=== PATIENT | male | born 1935 | race Caucasian/White ===

== ENCOUNTER 2021-07-29 10:28 | Outpatient (REF) | payer MEDICARE, SELFPAY ==
[2021-07-29 10:49] LABS: MANUAL DIFF FLAG NO
[2021-07-29 11:03] LABS: Basophils Percent Auto 0.6 % (0-2); Eosinophils Absolute Auto 0.2 X10*3/uL (0.0-0.4); Eosinophils Percent Auto 3.1 % (0-4); Hematocrit 40.3 % (42-52); Hemoglobin 13.6 g/dl (14.0-18.0); Imm Gran Abs Auto 0.02 X10*3/uL (0.00-0.03); Imm Gran Pct Auto 0.4 % (0.0-0.4); Lymphocytes Percent Auto 19.1 % (20-40); Mean Corpuscular HGB Conc 33.7 g/dl (31.0-36.0); Mean Corpuscular Hemoglobin 32.7 pg (27.0-33.0); Mean Corpuscular Volume 96.9 fL (80-98); Mean Platelet Volume 10.1 fL (9.4-12.4); Monocytes Absolute Auto 0.5 X10*3/uL (0.1-1.2); Monocytes Percent Auto 9.5 % (2-11); Neutrophils Absolute Auto 3.5 X10*3/uL (2.0-8.3); Neutrophils Percent Auto 67.3 % (45-73); Platelet Count 187 X10*3/uL (160-400); Red Blood Count 4.16 X10*6/uL (4.60-5.80); Red Cell Distribution Width 13.8 % (11.0-16.0); White Blood Count 5.1 X10*3/uL (4.8-10.8)
[2021-07-29 11:29] LABS: Alanine Aminotransferase 16 U/L (0-40); Alkaline Phosphatase 110 U/L (39-117); Anion Gap 11 (12-20); Aspartate Amino Transferase 21 U/L (5-37); Bilirubin Total 1.1 mg/dL (0.0-1.0); Blood Urea Nitrogen 18 mg/dL (9-16); Calcium 8.9 mg/dL (8.4-10.2); Carbon Dioxide 26 mmol/L (22-29); Chloride 109 mmol/L (96-108); Cholesterol 171 mg/dL; Estimated Glomerular Filt Rate 57; Glucose Random 102 mg/dL (60-115); HDL Cholesterol 62 mg/dL; LDL Cholesterol Calculated 100 mg/dl; Potassium 4.3 mmol/L (3.3-5.1); Sodium 142 mmol/L (135-145); Total Protein 6.6 g/dL (6.5-8.0); Triglycerides 47 mg/dL
[2021-07-29 11:53] LABS: Free T4 (Free Thyroxine) 0.96 ng/dL (0.71-1.85); Thyroid Stimulating Hormone 6.04 uIU/mL (0.32-4.0)
== END 2021-07-29 10:29 | disposition home or self-care (01) ==
LOC: HO.LAB 10:28
PROVIDERS: PCP Internal Medicine; Visit Provider Internal Medicine
DX: I10 Essential (primary) hypertension (principal); R73.02 Impaired glucose tolerance (oral); E03.9 Hypothyroidism, unspecified; E78.00 Pure hypercholesterolemia, unspecified
CPT/HCPCS: 36415; 80053; 80061; 84439; 84443; 85025

== ENCOUNTER 2022-03-24 13:46 | Outpatient (REF) | payer MEDICARE, SELFPAY ==
--- NOTE | 2022-03-24 14:03 | ECG_ITS ---
Test Reason : DIZZY Blood Pressure : / mmHG Vent. Rate : 063 BPM Atrial Rate : 063 BPM P-R Int : 172 ms QRS Dur : 088 ms QT Int : 386 ms P-R-T Axes : 032 024 041 degrees QTc Int : 395 ms Normal sinus rhythm Minimal voltage criteria for LVH, may be normal variant ( Sokolow-Hernandez ) Nonspecific T wave abnormality Abnormal ECG When compared with ECG of 28-FEB-2013 10:41, Nonspecific T wave abnormality, worse in Lateral leads Referred By: Steve Sanchez Electronically Signed By:Naveen Mccormack
[2022-03-24 14:18] LABS: MANUAL DIFF FLAG NO
[2022-03-24 15:07] LABS: Basophils Percent Auto 0.4 % (0-2); Eosinophils Absolute Auto 0.1 X10*3/uL (0.0-0.4); Eosinophils Percent Auto 2.1 % (0-4); Hematocrit 41.4 % (42.0-52.0); Hemoglobin 13.8 g/dl (14.0-18.0); Imm Gran Abs Auto 0.01 X10*3/uL (0.00-0.03); Imm Gran Pct Auto 0.2 % (0.0-0.4); Immature Retic Fraction 6.1 % (2.3-13.4); Lymphocytes Absolute Auto 0.8 X10*3/uL (1.2-4.9); Lymphocytes Percent Auto 17.5 % (20-40); Mean Corpuscular HGB Conc 33.3 g/dl (31.0-36.0); Mean Corpuscular Hemoglobin 32.9 pg (27.0-33.0); Mean Corpuscular Volume 98.8 fL (80.0-98.0); Mean Platelet Volume 10.6 fL (9.4-12.4); Monocytes Absolute Auto 0.5 X10*3/uL (0.1-1.2); Monocytes Percent Auto 10.6 % (2-11); Neutrophils Absolute Auto 3.3 x10*3/uL (2.0-8.3); Neutrophils Percent Auto 69.2 % (45-73); Platelet Count 184 X10*3/uL (160-400); Red Blood Count 4.19 X10*6/uL (4.60-5.80); Red Cell Distribution Width 13.8 % (11.0-16.0); Retic HGB Equivalent 37.5 pg (30.0-35.0); Reticulocyte Percent 0.9 % (0.5-1.8); Reticulocytes Absolute 0.039 X10*6/uL (0.026-0.095); White Blood Count 4.8 X10*3/uL (4.8-10.8)
[2022-03-24 15:29] LABS: Appearance Urine CLEAR; Color Urine STRAW; Glucose Urine UA NEG (NEG); Leukocyte Esterase Urine NEG (NEG); Nitrite Urine NEG (NEG); PH 5.5 (5.0-8.0); Specific Gravity - Urine <= 1.005 (1.005-1.025); Urine Blood NEG (NEG); Urine Ketones NEG (NEG); Urine Protein NEG (NEG-TRACE)
[2022-03-24 15:43] LABS: Alanine Aminotransferase 16 U/L (0-40); Albumin Level 4.1 g/dL (3.5-5.0); Alkaline Phosphatase 87 U/L (39-117); Anion Gap 10 (12-20); Aspartate Amino Transferase 19 U/L (5-37); Bilirubin Total 0.6 mg/dL (0.0-1.0); Blood Urea Nitrogen 22 mg/dL (9-16); Calcium 9.2 mg/dL (8.4-10.2); Carbon Dioxide 28 mmol/L (22-29); Chloride 106 mmol/L (96-108); Estimated Glomerular Filt Rate > 60; Glucose Random 100 mg/dL (60-115); Iron 81 mcg/dL (45-160); Magnesium 2.2 mg/dL (1.6-2.6); Percent Iron Saturation 29 % (15-50); Potassium 3.9 mmol/L (3.3-5.1); Sodium 140 mmol/L (135-145); Total Iron Binding Capacity 282 mcg/dL (228-428); Total Protein 6.8 g/dL (6.5-8.0); Unsaturated Iron Binding 201 ug/dL
[2022-03-24 15:47] LABS: RBC Urine 0-2 /HPF (0); Squamous Epithelial Cell Urine TRACE /LPF; WBC Urine 0-2 /HPF (0-4)
[2022-03-24 16:06] LABS: Ferritin 225 ng/mL (20-250); Thyroid Stimulating Hormone 3.13 uIU/mL (0.32-4.0)
[2022-03-24 16:25] LABS: Folate > 20.0 ng/mL (> or = 4.0); Vitamin B12 480 pg/mL (200-900)
[2022-03-26 15:33] LABS: Lyme Abs Screen <0.90 index
== END 2022-03-24 13:47 | disposition home or self-care (01) ==
LOC: HO.LAB 13:46
PROVIDERS: PCP Internal Medicine; Visit Provider Internal Medicine
DX: N40.1 Benign prostatic hyperplasia with lower urinary tract symptoms (principal); R35.0 Frequency of micturition; R42 Dizziness and giddiness; E03.9 Hypothyroidism, unspecified; D64.9 Anemia, unspecified
CPT/HCPCS: 36415; 80053; 81001; 82607; 82728; 82746; 83540; 83735; 84439; 84443; 85025; 85045; 86617; 86618; 86900; 86901; 93005

== ENCOUNTER 2022-03-29 17:42 | Emergency (ER) | payer MEDICARE, SELFPAY ==
--- NOTE | ~2022-03-29 | CT_ITS ---
EXAMINATION: CT HEAD WITHOUT CONTRAST CLINICAL INFORMATION: Acute AMS COMPARISON: None TECHNIQUE: Contiguous axial imaging was performed from the skull base to vertex without intravenous administration of contrast. This CT examination was performed using dose optimization techniques as appropriate, variously including the following: *Automated exposure control *Adjustment of mA and/or kV according to patient size (this includes techniques or standardized protocols for targeted exams where dose is matched to indication/reason for exam; i.e. extremities or head) *Use of iterative reconstruction technique DLP: 611 mGy-cm FINDINGS: There is no evidence of acute intracranial hemorrhage or territorial infarction. No abnormal mass effect or midline shift is seen. Santiago to white matter differentiation is well preserved. No extra-axial fluid collections are identified. The lateral ventricles are symmetrical in size and configuration but enlarged. There is diffuse periventricular hypodensity in both cerebral hemispheres suggestive of chronic small vessel ischemic changes The osseous structures and soft tissues are normal. There is a small polyp or retention cyst in the dependent segment of left maxillary sinus. Rest of the paranasal sinuses and mastoid air cells are well-aerated. CT/CT head/brain wo con IMPRESSION: No acute intracranial process seen. Cerebral volume loss with chronic small vessel ischemic changes.
--- NOTE | ~2022-03-29 | XR_ITS ---
EXAMINATION: XR chest 1V CLINICAL INFORMATION: Reason for Exam ams COMPARISON: No prior chest x-ray available TECHNIQUE: XR chest 1V Tubes and lines: None Lungs and pleura: Exam limited, portable technique upright, no definite infiltrates or failure, diminished lung volume exaggerated by portable technique. Crowding of lung markings probably poor inspiration. Heart and mediastinum: The mediastinum is within normal limits.. Bones/soft tissue: Skeletal structures included are normal for patient's age. XR/XR chest 1V IMPRESSION: Limited portable technique. No radiographic evidence of acute infiltrates or failure.
--- NOTE | 2022-03-29 17:48 | ED_ITS ---
HPI - Altered Mental Status General Chief Complaint: Altered Mental Status Stated Complaint: Altered Mental Status Time Seen by Provider: 03/29/22 17:46 History of Present Illness HPI narrative: Patient with history of laryngeall cancer status post tracheostomy, hypertension, hypothyroidism, BPH was working outside in the yardd for 4 hours moving the yard came inside very confused not talking keeping his eyes closed breathing heavy. Patient never done like this before. No vomiting no diarrhea Related Data Home Medications Medication Instructions Recorded Confirmed calcium carbonate 600 mg-vitamin cap PO 08/05/20 08/03/21 D3 12.5 mcg (500 unit) capsule (Calcium 600 with Vitamin D3) multivitamin 1 tab PO DAILY 08/05/20 08/03/21 Previous Rx's Medication Instructions Recorded hydrochlorothiazide 12.5 mg tablet 12.5 mg PO QAM #90 tabs 05/15/21 levothyroxine 75 mcg tablet 75 mcg PO DAILY #90 tabs 05/15/21 tamsulosin 0.4 mg capsule 0.4 mg PO DAILY #90 caps 05/15/21 Allergies Allergy/AdvReac Type Severity Reaction Status Date / Time No Known Allergies Allergy Verified 03/24/22 12:57 [facility] Past Medical History Medical History (Updated 03/29/22 @ 21:06 by Ricardo Torres MD) 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 Mother No problems noted. Social History Social History (Updated 08/03/21 @ 13:28 by Steve Sanchez MD) Housing: House Alcohol intake: current Alcohol intake frequency: a few times a week Patient Tobacco Use Status: Never used Tobacco e-Cigarette/Vaping Use: Never Used Second Hand Smoke Exposure: No Use of substances other than those prescribed or required for medical reasons: No Advance Directives: No Advance Directives Information Provided: No Current occupational status: retired Cognitive needs: No Hearing needs: No Vision needs: Yes Physical Exam ED Vital Signs: Vital Signs - 24 hr 03/29/22 18:02 03/29/22 19:45 03/29/22 21:27 Temperature 98.3 F Pulse Rate 82 73 80 Respiratory Rate 16 16 Blood Pressure 156/76 H 166/79 H 178/86 H Pulse Oximetry 95 99 Oxygen Delivery Method Room Air Room Air 03/29/22 21:27 03/29/22 21:30 Temperature Pulse Rate 82 91 Respiratory Rate Blood Pressure 173/94 H 164/87 H Pulse Oximetry Oxygen Delivery Method Appearance: Alert. Oriented X3. No acute distress. Lethargic Eyes: PERRLA, No Nystagmus ENT: Pharynx normal. Oral Mucosa moist Neck: Normal inspection. Neck supple.tracheostomy in place CVS: Normal heart rate and rhythm. Pulses normal. Respiratory: No respiratory distress. Equal air entry bilateral, no wheezing/rales/rhonchi Abdomen: Soft and nontender. Bowel sounds are present, no mass palpable, no CVA tenderness Skin: Skin warm and dry. Normal skin color. Normal skin turgor. Extremities: No lower extremity edema. No calf tenderness Neuro: Oriented X 3. No motor deficit. No sensory deficit.No cerebellar signs , cranial nerves II-XII intact MDM - Altered Mental Status MDM Narrative Medical decision making narrative: Patient's symptoms seems like heat exhaustion after getting IV fluids patient became awake alert talking back to baseline walking the ER without any discomfort says that he was exhausted earlier today after working in the yard felt dizzy and fell down without hitting head workup in the ER negative CT head negative labs are stable patient feeling much better discharged home Lab Data Attestation: I reviewed the patient's lab results. Result diagrams: 03/29/22 18:46 03/29/22 18:46 Labs: Lab Results 03/29/22 03/29/22 03/29/22 Range/Units 18:46 18:46 18:46 WBC 10.1 (4.8-10.8) X10*3/uL RBC 3.84 L (4.60-5.80) X10*6/uL Hgb 12.9 L (14.0-18.0) g/dl Hct 37.2 L (42.0-52.0) % MCV 96.9 (80.0-98.0) fL MCH 33.6 H (27.0-33.0) pg MCHC 34.7 (31.0-36.0) g/dl RDW 13.4 (11.0-16.0) % Plt Count 160 (160-400) X10*3/uL MPV 10.5 (9.4-12.4) fL Immature Gran % (Auto) 1.0 H (0.0-0.4) % Neut % (Auto) 85.5 H (45-73) % Lymph % (Auto) 6.5 L (20-40) % Preston % (Auto) 6.2 (2-11) % Eos % (Auto) 0.6 (0-4) % Baso % (Auto) 0.2 (0-2) % Lymph # (Auto) 0.7 L (1.2-4.9) X10*3/uL Preston # (Auto) 0.6 (0.1-1.2) X10*3/uL Eos # (Auto) 0.1 (0.0-0.4) X10*3/uL Baso # (Auto) 0.0 (0.0-0.2) X10*3/uL Abs Immat Gran (auto) 0.10 H (0.00-0.03) X10*3/uL Absolute Neuts (auto) 8.6 H (2.0-8.3) x10*3/uL Absolute Nucleated RBC 0.000 (0.0-0.012) X10*3/uL Nucleated RBC % (auto) 0.0 (0.0-0.2) /100WBC PT 11.7 (9.9-13.0) SEC INR 1.0 (0.9-1.1) Sodium 142 (135-145) mmol/L Potassium 4.0 (3.3-5.1) mmol/L Chloride 111 H (96-108) mmol/L Carbon Dioxide 20 L (22-29) mmol/L Anion Gap 15 (12-20) BUN 26 H (9-16) mg/dL Creatinine 1.12 (0.5-1.4) mg/dL Estim Creat Clear Calc TNP Estimated GFR > 60 Random Glucose 140 H D (60-115) mg/dL Calcium 8.8 (8.4-10.2) mg/dL Total Bilirubin 0.7 (0.0-1.0) mg/dL AST 19 (5-37) U/L ALT 14 (0-40) U/L Alkaline Phosphatase 95 (39-117) U/L Total Creatine Kinase 94 (38-174) U/L Troponin I High Sens (<3.5-35.0) ng/L Total Protein 6.4 L (6.5-8.0) g/dL Albumin 3.8 (3.5-5.0) g/dL Urine Color Urine Appearance Urine pH (5.0-8.0) Ur Specific [place] (1.005-1.025) Urine Protein (NEG-TRACE) MG/DL Urine Glucose (UA) (NEG) MG/DL Urine Ketones (NEG) MG/DL Urine Blood (NEG) Urine Nitrite (NEG) Ur Leukocyte Esterase (NEG) COVID-19 (DWAYNE) (Negative) COVID-19 Clin Com 03/29/22 03/29/22 03/29/22 Range/Units 18:46 18:46 19:44 WBC (4.8-10.8) X10*3/uL RBC (4.60-5.80) X10*6/uL Hgb (14.0-18.0) g/dl Hct (42.0-52.0) % MCV (80.0-98.0) fL MCH (27.0-33.0) pg MCHC (31.0-36.0) g/dl RDW (11.0-16.0) % Plt Count (160-400) X10*3/uL MPV (9.4-12.4) fL Immature Gran % (Auto) (0.0-0.4) % Neut % (Auto) (45-73) % Lymph % (Auto) (20-40) % Preston % (Auto) (2-11) % Eos % (Auto) (0-4) % Baso % (Auto) (0-2) % Lymph # (Auto) (1.2-4.9) X10*3/uL Preston # (Auto) (0.1-1.2) X10*3/uL Eos # (Auto) (0.0-0.4) X10*3/uL Baso # (Auto) (0.0-0.2) X10*3/uL Abs Immat Gran (auto) (0.00-0.03) X10*3/uL Absolute Neuts (auto) (2.0-8.3) x10*3/uL Absolute Nucleated RBC (0.0-0.012) X10*3/uL Nucleated RBC % (auto) (0.0-0.2) /100WBC PT (9.9-13.0) SEC INR (0.9-1.1) Sodium (135-145) mmol/L Potassium (3.3-5.1) mmol/L Chloride (96-108) mmol/L Carbon Dioxide (22-29) mmol/L Anion Gap (12-20) BUN (9-16) mg/dL Creatinine (0.5-1.4) mg/dL Estim Creat Clear Calc Estimated GFR Random Glucose (60-115) mg/dL Calcium (8.4-10.2) mg/dL Total Bilirubin (0.0-1.0) mg/dL AST (5-37) U/L ALT (0-40) U/L Alkaline Phosphatase (39-117) U/L Total Creatine Kinase (38-174) U/L Troponin I High Sens 5.4 (<3.5-35.0) ng/L Total Protein (6.5-8.0) g/dL Albumin (3.5-5.0) g/dL Urine Color YELLOW Urine Appearance CLEAR Urine pH 6.0 (5.0-8.0) Ur Specific [place] 1.015 (1.005-1.025) Urine Protein NEG (NEG-TRACE) MG/DL Urine Glucose (UA) NEG (NEG) MG/DL Urine Ketones 15 (NEG) MG/DL Urine Blood NEG (NEG) Urine Nitrite NEG (NEG) Ur Leukocyte Esterase NEG (NEG) COVID-19 (DWAYNE) Negative (Negative) COVID-19 Clin Com See Note Discharge Plan Discharge Clinical Impression: Heat exhaustion Patient Disposition: Home, Self-Care Instructions: Heat Exhaustion (ED) Additional Instructions: Drink plenty of fluids Avoid working in the heat outside Prescriptions: No Action levothyroxine 75 mcg tablet 75 mcg PO DAILY Qty: 90 3RF tamsulosin 0.4 mg capsule 0.4 mg PO DAILY Qty: 90 3RF hydrochlorothiazide 12.5 mg tablet 12.5 mg PO QAM Qty: 90 3RF multivitamin Tablet 1 tab PO DAILY calcium carbonate-vitamin D3 [Calcium 600 with Vitamin D3] 600 mg(1,500mg) - 500 unit capsule PO Interventions: ED Discharge Assessment Last Done: 03/29/22 21:33 Discharge Date/Time: 03/29/22 21:59
--- NOTE | 2022-03-29 17:57 | ECG_ITS ---
Test Reason : AMS Blood Pressure : / mmHG Vent. Rate : 076 BPM Atrial Rate : 076 BPM P-R Int : 196 ms QRS Dur : 092 ms QT Int : 412 ms P-R-T Axes : 032 016 050 degrees QTc Int : 463 ms Normal sinus rhythm Normal ECG When compared with ECG of 24-MAR-2022 14:17, QT has lengthened Referred By: Ricardo Torres Electronically Signed By:MARIE GORDON MD
[2022-03-29 18:02] VITALS: BP 156/76; BP 160/85; PULSE 82; PULSE 85; RESP 16; TEMP 36.8; O2SAT 100; O2SAT 95
--- NOTE | 2022-03-29 18:19 | PC.NURSE ---
EMS HAND OFF FROM [facility]. PER , PT CLAIMED HE FELL WHILE MOWING HIS LAWN THIS AFTERNOON. HE WAS NON VERBAL WITH EMS AND ALMOST OBTUND WHILE IN THE CARE OF EMS. pmh INCLUDES: HTN, PROSTATE AND THYROID DISEASE. HE WAS DEHYDRATED PER DR CAMPBELL LAST WEEK WHILE AT PCP OFICE
[2022-03-29 18:54] LABS: MANUAL DIFF FLAG NO
[2022-03-29 18:56] LABS: Appearance Urine CLEAR; Color Urine YELLOW; Glucose Urine UA NEG (NEG); Leukocyte Esterase Urine NEG (NEG); Nitrite Urine NEG (NEG); Specific Gravity - Urine 1.015 (1.005-1.025); Urine Blood NEG (NEG); Urine Ketones 15 MG/DL (NEG); Urine Protein NEG (NEG-TRACE)
[2022-03-29 19:02] LABS: Basophils Percent Auto 0.2 % (0-2); Eosinophils Absolute Auto 0.1 X10*3/uL (0.0-0.4); Eosinophils Percent Auto 0.6 % (0-4); Hematocrit 37.2 % (42.0-52.0); Hemoglobin 12.9 g/dl (14.0-18.0); Lymphocytes Absolute Auto 0.7 X10*3/uL (1.2-4.9); Lymphocytes Percent Auto 6.5 % (20-40); Mean Corpuscular HGB Conc 34.7 g/dl (31.0-36.0); Mean Corpuscular Hemoglobin 33.6 pg (27.0-33.0); Mean Corpuscular Volume 96.9 fL (80.0-98.0); Mean Platelet Volume 10.5 fL (9.4-12.4); Monocytes Absolute Auto 0.6 X10*3/uL (0.1-1.2); Monocytes Percent Auto 6.2 % (2-11); Neutrophils Absolute Auto 8.6 x10*3/uL (2.0-8.3); Neutrophils Percent Auto 85.5 % (45-73); Platelet Count 160 X10*3/uL (160-400); Red Blood Count 3.84 X10*6/uL (4.60-5.80); Red Cell Distribution Width 13.4 % (11.0-16.0); White Blood Count 10.1 X10*3/uL (4.8-10.8)
[2022-03-29 19:06] LABS: Prothrombin Time 11.7 SEC (9.9-13.0)
[2022-03-29 19:16] LABS: Alanine Aminotransferase 14 U/L (0-40); Albumin Level 3.8 g/dL (3.5-5.0); Alkaline Phosphatase 95 U/L (39-117); Anion Gap 15 (12-20); Aspartate Amino Transferase 19 U/L (5-37); Bilirubin Total 0.7 mg/dL (0.0-1.0); Blood Urea Nitrogen 26 mg/dL (9-16); Calcium 8.8 mg/dL (8.4-10.2); Carbon Dioxide 20 mmol/L (22-29); Chloride 111 mmol/L (96-108); Estimated Glomerular Filt Rate > 60; Glucose Random 140 mg/dL (60-115); Sodium 142 mmol/L (135-145); Total Protein 6.4 g/dL (6.5-8.0)
[2022-03-29 19:22] LABS: Troponin-I High Sensitivity 5.4 ng/L (<3.5-35.0)
[2022-03-29 19:45] VITALS: BP 166/79; PULSE 73; RESP 16; O2SAT 99
[2022-03-29 20:31] LABS: COVID-19 Test Negative (Negative)
[2022-03-29 21:27] VITALS: BP 173/94; BP 178/86; PULSE 80; PULSE 82
[2022-03-29 21:30] VITALS: BP 164/87; PULSE 91
== END 2022-03-29 21:59 | disposition home or self-care (01) ==
PROVIDERS: Emergency Provider Internal Medicine; PCP Internal Medicine
DX: R41.82 Altered mental status, unspecified (principal); T67.5XXA Heat exhaustion, unspecified, initial encounter; I10 Essential (primary) hypertension; R51.9 Headache, unspecified; X58.XXXA Exposure to other specified factors, initial encounter; Y93.9 Activity, unspecified; Y92.9 Unspecified place or not applicable; Y99.9 Unspecified external cause status; Z20.822 Contact with and (suspected) exposure to COVID-19; Z79.899 Other long term (current) drug therapy
CPT/HCPCS: 36415; 70450; 71045; 80053; 81003; 82550; 84484; 85025; 85610; 87635; 93005; 99284

== ENCOUNTER 2022-04-07 14:20 | Outpatient (REF) | payer MEDICARE, SELFPAY ==
--- NOTE | ~2022-04-07 | MR_ITS ---
MRI OF THE BRAIN WITHOUT IV CONTRAST INDICATION: Disorientation. COMPARISON: Head CT 03/29/2022. TECHNIQUE: Multiplanar multisequence MR imaging of the brain was obtained without IV contrast. FINDINGS: Multiple foci of reduced diffusivity involving the right greater than left cerebellum exhibiting intermediate signal on the ADC map suggesting subacute infarcts. Petechial subacute blood products associated with one of the infarcts in the inferolateral right cerebellum exhibiting intrinsic T1 shortening. There is no mass effect. Loss of the distal cervical and intradural right vertebral artery flow void suggesting slow flow within versus occlusion of this vessel that be better assessed with a CTA of the head and neck. Foci of probable chronic hemosiderin staining within the left temporal periventricular white matter and the left parietal white matter. There is global cerebral volume loss and there is moderate chronic microangiopathy. There is no hydrocephalus, extra-axial surface collection, or herniation. The cerebellar tonsils are normally positioned. The craniocervical junction is normal. Osseous marrow signal intensity is homogenous. The visualized soft tissues are unremarkable. MR/MR head/brain wo con IMPRESSION: - Multiple foci of reduced diffusivity involving the right greater than left cerebellum exhibiting intermediate signal on the ADC map suggesting subacute infarcts. Petechial subacute blood products associated with one of the infarcts in the inferolateral right cerebellum exhibiting intrinsic T1 shortening. There is no mass effect. - Loss of the distal cervical and intradural right vertebral artery flow void suggesting slow flow within versus occlusion of this vessel that be better assessed with a CTA of the head and neck. - There is global cerebral volume loss and there is moderate chronic microangiopathy. The patient was transferred to the [facility] emergency department immediately following this study and the findings were discussed with Dr. Sanchez at 3:35 PM on 04/07/2022.
== END 2022-04-07 14:21 | disposition home or self-care (01) ==
LOC: HO.MRI 14:20
PROVIDERS: Visit Provider Internal Medicine
DX: Z13.89 Encounter for screening for other disorder (principal)
CPT/HCPCS: 70551

== ENCOUNTER 2022-04-07 15:38 | Inpatient (IN) | payer MEDICARE, SELFPAY ==
--- NOTE | ~2022-04-07 | CT_ITS ---
EXAMINATION: CT ANGIOGRAM OF THE HEAD CT ANGIOGRAM OF THE NECK CLINICAL INFORMATION: Dizziness. Abnormal MRI. COMPARISON: MRI scan of the brain earlier 04/07/2022. CT scan of the head 03/29/2022. TECHNIQUE: A noncontrast axial CT scan of the head was obtained. Test bolus series followed by intravenous administration 70 mL of Omnipaque 350. Helical imaging was performed in the axial plane from the mediastinum to the skull vertex. The degree of stenosis is based off NASCET criteria. The data was processed at the research technologist workstation for generation of MIP images. Three-dimensional volume rendered reformatted images were also generated at an offline 3-D workstation. This CT examination was performed using dose optimization techniques as appropriate, variously including the following: *Automated exposure control *Adjustment of mA and/or kV according to patient size (this includes techniques or standardized protocols for targeted exams where dose is matched to indication/reason for exam; i.e. extremities or head) *Use of iterative reconstruction technique DLP: 2355 mGy-cm. FINDINGS: CT Head: There are areas of low-attenuation in the right cerebellar hemisphere, corresponding to foci of acute and subacute infarcts on the MRI scan. There are sequelae of chronic infarcts in the left cerebellar hemisphere. There is extensive low-attenuation in the periventricular subcortical white matter, corresponding to chronic microvascular ischemic changes demonstrated on prior imaging. There is mild commensurate prominence of the ventricles and sulci. There is no evidence of hemorrhage or hemorrhagic transformation. No abnormal mass-effect or midline shift is seen. No extra-axial fluid collections are identified. There is no abnormal enhancement. There are no acute osseous or soft tissue abnormalities. The right mastoid tip is not pneumatized. There is a small retention cyst in the left maxillary sinus. There are severe arthropathic changes of the left temporal mandibular joint. There have been bilateral lens extractions. CTA Neck: There is a classic configuration of the aortic arch. There are mild atheromatous calcifications of the arch and at the origin of the bilateral subclavian arteries. The subclavian arteries are patent. Both common carotid arteries are patent. The carotid bifurcations appear normal. There is absent flow from the right external carotid artery. There are mild atheromatous calcifications of the proximal right internal carotid artery, but both cervical internal carotid arteries are patent although there is slight irregular caliber of the bilateral cervical internal carotid arteries distal to the bifurcations with atheromatous plaques. More distally, both cervical internal carotid arteries are patent with uniform caliber. The left vertebral artery arises off the posterior arch of the aorta, and is patent throughout its cervical course extending intradurally. On the right, no flow is demonstrated in the V1 and V2 segments of the vertebral artery; there appears to be some atheromatous calcification of the wall of the mid and distal cervical vertebral artery on the right. There is a thin caliber distal cervical right vertebral artery with flow. The left vertebral artery is dominant. Nonvascular: The thyroid gland appears normal in size. There are sequelae of a prior tracheostomy; no tracheostomy tube is noted in position in this study. There is no cervical lymphadenopathy. There are multilevel facet arthropathic changes, and there is severe spondylosis toward the right at C4-C5 with degenerative endplate contour changes and sclerosis. The visualized upper lung castillo are well-aerated. CTA Head: There are extensive atheromatous calcifications of the cavernous internal carotid on the right with milder calcifications on the left, but the vessels are patent. The A1 segment of the right anterior cerebral artery has thinner, but uniform caliber compared to the left. The A2 segments of the bilateral anterior cerebral arteries opacify well. The middle cerebral arteries bilaterally demonstrate normal caliber with no evidence of focal stenosis, aneurysm or vascular malformation. There is normal arborization of the middle cerebral artery branches. The anterior communicating artery is normal. In the posterior circulation, there is irregular caliber of the distal V3 and proximal V4 segments of the right vertebral artery. The bilateral intradural vertebral arteries have irregular caliber, more prominently on the right. The basilar artery appears normal. The distal right superior cerebellar artery has relatively thin, and irregular caliber; the proximal right superior cerebellar artery opacifies well. There is a origin of the right posterior cerebral artery. Both posterior cerebral arteries are patent. The venous sinuses opacify normally. CT/CT angio head neck IMPRESSION: CT head and neck: 1. There are areas of low-attenuation in the right cerebellar hemisphere, corresponding to the acute and subacute infarcts demonstrated on prior MRI scan. There is no evidence of hemorrhage. 2. There is diffuse volume loss and there are chronic microvascular ischemic changes. 3. There are sequelae of a tracheostomy; no tracheostomy tube is noted in position. 4. There is severe spondylosis on the right at C4-C5. CTA neck: 1. There are atheromatous calcifications of the aortic arch and at the proximal right cervical internal carotid artery. 2. The right external carotid artery does not opacify distal to its origin. 3. The common and internal carotid arteries are patent without evidence of flow-limiting stenosis. 4. The right vertebral artery does not demonstrate flow from its origin through the upper cervical region, but flow is demonstrated extending intradurally. The left vertebral artery arises off the posterior arch of the aorta, a normal variant. CT head: 1. There are atheromatous calcifications of the cavernous internal carotid arteries, but the vessels are patent. 2. There are no focal stenoses, vascular malformations or aneurysms. 3. Intradurally the right vertebral artery is patent.
[2022-04-07 15:56] VITALS: BP 145/59; PULSE 64; RESP 20; TEMP 36.7; O2SAT 100; BMI 21.2
--- NOTE | 2022-04-07 17:01 | ECG_ITS ---
Test Reason : DIZZINESS Blood Pressure : / mmHG Vent. Rate : 056 BPM Atrial Rate : 056 BPM P-R Int : 186 ms QRS Dur : 092 ms QT Int : 424 ms P-R-T Axes : 032 007 063 degrees QTc Int : 409 ms Sinus bradycardia Minimal voltage criteria for LVH, may be normal variant ( R in aVL ) Borderline ECG When compared with ECG of 29-MAR-2022 18:23, QT has shortened Referred By: Mery Li Electronically Signed By:JORGE HENDRICKS
[2022-04-07 17:21] LABS: MANUAL DIFF FLAG NO
[2022-04-07 17:25] LABS: Basophils Percent Auto 0.3 % (0-2); Eosinophils Absolute Auto 0.2 X10*3/uL (0.0-0.4); Eosinophils Percent Auto 2.5 % (0-4); Hematocrit 41.8 % (42.0-52.0); Hemoglobin 14.3 g/dl (14.0-18.0); Imm Gran Abs Auto 0.05 X10*3/uL (0.00-0.03); Imm Gran Pct Auto 0.7 % (0.0-0.4); Lymphocytes Absolute Auto 1.1 X10*3/uL (1.2-4.9); Lymphocytes Percent Auto 15.5 % (20-40); Mean Corpuscular HGB Conc 34.2 g/dl (31.0-36.0); Mean Corpuscular Hemoglobin 32.5 pg (27.0-33.0); Mean Platelet Volume 10.4 fL (9.4-12.4); Monocytes Absolute Auto 0.7 X10*3/uL (0.1-1.2); Monocytes Percent Auto 9.7 % (2-11); Neutrophils Absolute Auto 4.9 x10*3/uL (2.0-8.3); Neutrophils Percent Auto 71.3 % (45-73); Platelet Count 178 X10*3/uL (160-400); Red Cell Distribution Width 12.9 % (11.0-16.0); White Blood Count 6.9 X10*3/uL (4.8-10.8)
[2022-04-07 17:40] LABS: Alanine Aminotransferase 13 U/L (0-40); Alkaline Phosphatase 99 U/L (39-117); Anion Gap 11 (12-20); Aspartate Amino Transferase 17 U/L (5-37); Bilirubin Direct 0.3 mg/dL (0.0-0.5); Bilirubin Total 0.6 mg/dL (0.0-1.0); Blood Urea Nitrogen 23 mg/dL (9-16); Calcium 9.3 mg/dL (8.4-10.2); Carbon Dioxide 26 mmol/L (22-29); Chloride 106 mmol/L (96-108); Creatinine Clr Calc Pharmacy 42.1; Estimated Glomerular Filt Rate > 60; Glucose Random 106 mg/dL (60-115); Potassium 3.5 mmol/L (3.3-5.1); Sodium 139 mmol/L (135-145); Total Protein 6.7 g/dL (6.5-8.0)
[2022-04-07 17:40] LABS: COVID-19 Test Negative (Negative); IDNOW Serial# 16C4AD1C
[2022-04-07 17:41] LABS: IDNOW Serial# 55D5AD1C; Influenza A Negative (Negative); Influenza B2 Negative (Negative)
--- NOTE | 2022-04-07 17:43 | ED_ITS ---
HPI - General Adult General Chief complaint: General Medical <EMMANUELLE Garcia - Last Filed: 04/07/22 18:51> Stated complaint: Abdnormal MRI <EMMANUELLE Garcia Last Filed: 04/07/22 18:51> Time Seen by Provider: 04/07/22 16:21 <EMMANUELLE Garcia Last Filed: 04/07/22 18:51> Source: patient <EMMANUELLE Garcia Last Filed: 04/07/22 18:51> Mode of arrival: ambulatory <EMMANUELLE Garcia Last Filed: 04/07/22 18:51> History of Present Illness HPI narrative: 86-year-old male with a past medical history of BPH, laryngeal cancer s/p tracheostomy, HTN, hypothyroid, sent to ED from outpatient MRI for abnormal findings. Patient and from [facility] room spinning dizziness x1 month. Also admits to right hand paresthesias times a couple days, and intermittent blurry vision. Denies falls/trauma, chest pain/shortness breath abdominal pain, nausea/vomiting, focal weakness. Denies taking anticoagulation <EMMANUELLE Garcia Last Filed: 04/07/22 18:51> Onset (ago): month(s) <EMMANUELLE Garcia Last Filed: 04/07/22 18:51> Related Data Home medications: Home Medications Medication Instructions Recorded Confirmed calcium carbonate 600 mg-vitamin 2 cap PO DAILY 08/05/20 04/07/22 D3 12.5 mcg (500 unit) capsule (Calcium 600 with Vitamin D3) multivitamin 1 tab PO DAILY 08/05/20 04/07/22 levothyroxine 75 mcg tablet 75 mcg PO BEDTIME 04/07/22 04/07/22 Previous Rx's Medication Instructions Recorded hydrochlorothiazide 12.5 mg tablet 12.5 mg PO QAM #90 tabs 05/15/21 tamsulosin 0.4 mg capsule 0.4 mg PO DAILY #90 caps 05/15/21 <EMMANUELLE Garcia Last Filed: 04/07/22 18:51> Allergies/adverse reactions: Allergies Allergy/AdvReac Type Severity Reaction Status Date / Time No Known Allergies Allergy Verified 03/24/22 12:57 <EMMANUELLE Garcia - Last Filed: 04/07/22 18:51> Review of Systems Review of Systems: Constitutional: No Fever, No Chills, No Fatigue, No Malaise ENT/Mouth: No Ear Pain, No Nasal Congestion, No sore throat, No Rhinorrhea, No Swallowing Difficulty Eyes: No Eye Pain, No Swelling, No Redness, + intermittent blurry vision Cardiovascular: No Chest Pain, No SOB, NNo Edema, No Palpitations Respiratory: No Cough, No Sputum, No Dyspnea Gastrointestinal: No Nausea, No Vomiting, No Diarrhea, No Constipation, No Abdominal pain Genitourinary: No Dysuria, No Urinary Frequency, No Hematuria,No Flank Pain, No Urinary Flow Changes, No Hesitancy Musculoskeletal: No joint pain, No Myalgias, No Joint Swelling Skin: No Skin Lesions, No rash Neuro: No Weakness, No Numbness, + Paresthesias, No Loss of Consciousness, + Dizziness, No Headache <EMMANUELLE Garcia Last Filed: 04/07/22 18:51> Yes all other systems are reviewed and are negative <EMMANUELLE Garcia Last Filed: 04/07/22 18:51> [facility] Past Medical History Attestation statement: The following information was validated with the patient. <EMMANUELLE Garcia Last Filed: 04/07/22 18:51> Medical History: Medical History BPH (benign prostatic hyperplasia) History of laryngeal cancer Hypertension Hypothyroid Impaired glucose tolerance Tubular adenoma of colon Vocal cord papilloma virus <EMMANUELLE Garcia - Last Filed: 04/07/22 18:51> Surgical History: Surgical History History of cataract surgery History of left knee replacement History of total right knee replacement <EMMANUELLE Garcia Last Filed: 04/07/22 18:51> Family History Family History: Family History Father No problems noted. Mother No problems noted. <EMMANUELLE Garcia Last Filed: 04/07/22 18:51> Social History Social History: Social History Housing: House Alcohol intake: current Alcohol intake frequency: does not drink Patient Tobacco Use Status: Never used Tobacco e-Cigarette/Vaping Use: Never Used Second Hand Smoke Exposure: No Use of substances other than those prescribed or required for medical reasons: No Advance Directives: No Advance Directives Information Provided: No Current occupational status: retired Cognitive needs: No Hearing needs: No Vision needs: Yes <EMMANUELLE Garcia - Last Filed: 04/07/22 18:51> Physical Exam ED Vital Signs: Vital Signs - 24 hr 04/07/22 15:56 Temperature 98.0 F Pulse Rate 64 Respiratory Rate 20 Blood Pressure 145/59 H Pulse Oximetry 100 Oxygen Delivery Method Room Air BMI result Body Mass Index 21.2 <EMMANUELLE Garcia - Last Filed: 04/07/22 18:51> Vital Signs - 24 hr 04/07/22 15:56 Temperature 98.0 F Pulse Rate 64 Respiratory Rate 20 Blood Pressure 145/59 H Pulse Oximetry 100 Oxygen Delivery Method Room Air BMI result Body Mass Index 21.[address] <[address]ides Lane MD - Last Filed: 04/07/22 20:59> Const General: cooperative, healthy appearing, no acute distress, alert and awake <EMMANUELLE Garcia - Last Filed: 04/07/22 18:51> Orientation/consciousness: patient oriented x3 <EMMANUELLE Garcia - Last Filed: 04/07/22 18:51> Limitations: no limitations <EMMANUELLE Garcia - Last Filed: 04/07/22 18:51> HENMT Head: Yes normal to inspection and Yes atraumatic <EMMANUELLE Garcia - Last Filed: 04/07/22 18:51> Ears: hearing grossly normal bilaterally <EMMANUELLE Garcia - Last Filed: 04/07/22 18:51> General nose exam: Normal external nose present <EMMANUELLE Garcia Last Filed: 04/07/22 18:51> Face and sinus: Yes normal facial exam <EMMANUELLE Garcia - Last Filed: 04/07/22 18:51> Eyes General: appearance normal, both eyes and all related structures <EMMANUELLE Garcia - Last Filed: 04/07/22 18:51> Pupils: Equal, round and reactive pupils present <Mery Li PA - Last Filed: 04/07/22 18:51> EOM: EOMs intact bilaterally <Mery Li PA - Last Filed: 04/07/22 18:51> Neck Neck: Yes normal visual inspection and Yes no meningeal signs <Mery Li PA - Last Filed: 04/07/22 18:51> Resp Effort & Inspection: normal respiratory effort and no respiratory distress <Mery Pedrogallito PA - Last Filed: 04/07/22 18:51> Auscultation: clear to auscultation bilaterally, no rales, no rhonchi and no wheezes <Mery Li PA - Last Filed: 04/07/22 18:51> Cardio Rate: regular rate <Mery Li PA - Last Filed: 04/07/22 18:51> Heart sounds: S1 normal heart sound present and S2 normal heart sound present <Mery Li PA - Last Filed: 04/07/22 18:51> GI Inspection: Yes normal to inspection <Mery Li PA - Last Filed: 04/07/22 18:51> Palpation (GI): Soft to palpation, nontender, no guarding and not rigid <Mery Li PA - Last Filed: 04/07/22 18:51> General: Yes no CVA tenderness <Mery Li PA - Last Filed: 04/07/22 18:51> Back/Spine/Pelvis Back: no CVA tenderness <Mery Li PA - Last Filed: 04/07/22 18:51> Skin Rashes: no rashes <Mery Li PA - Last Filed: 04/07/22 18:51> Wounds: no wounds <Mery Li PA - Last Filed: 04/07/22 18:51> Neuro General: patient oriented x3, tone normal, moves all extremities, no meningeal signs, no focal motor deficits and CN's II-XI intact bilaterally <Mery Li PA - Last Filed: 04/07/22 18:51> Cranial nerves: Yes CN's II-XII intact bilaterally, Yes Equal, round and reactive pupils present, Yes Bilaterally intact EOM present and Yes Nystagmus not present <EMMANUELLE Garcia - Last Filed: 04/07/22 18:51> Cognition (Neuro): normal cognition <EMMANUELLE Garcia - Last Filed: 04/07/22 18:51> Motor exam (neuro): 5/5 motor strength present throughout, Pronator motor function not present and no tremor noted <EMMANUELLE Garcia - Last Filed: 04/07/22 18:51> Coordination: [id number] test normal <EMMANUELLE Garcia - Last Filed: 04/07/22 18:51> Romberg Test: Negative <EMMANUELLE Garcia - Last Filed: 04/07/22 18:51> Extrem General: Yes normal to inspection <EMMANUELLE Garcia - Last Filed: 04/07/22 18:51> Course Course Course Narrative: MR head/brain wo con IMPRESSION: - Multiple foci of reduced diffusivity involving the right greater than left cerebellum exhibiting intermediate signal on the ADC map suggesting subacute infarcts. Petechial subacute blood products associated with one of the infarcts in the inferolateral right cerebellum exhibiting intrinsic T1 shortening. There is no mass effect. ? ? - Loss of the distal cervical and intradural right vertebral artery flow void suggesting slow flow within versus occlusion of this vessel that be better assessed with a CTA of the head and neck. ? - There is global cerebral volume loss and there is moderate chronic microangiopathy. ? The patient was transferred to the [facility] emergency department immediately following this study and the findings were discussed with Dr. Sanchez at 3:35 PM on 04/07/2022. -no leukocytosis. Troponin elevated to 19.3 > will obtain 3 hour repeat -repeat troponin without 50% rise, TX unlikely >1800--ED care transferred to Dr. Lane pending remaining labs and CTA head and neck with anticipated admission <EMMANUELLE Garcia Last Filed: 04/07/22 18:51> Reevaluation(s) Reevaluation #1: I assumed care of this patient from my colleague, physician phlebotomist medical lab assistant Mery Li at 18:00 hours. The patient was referred to the emergency department after he had a MRI which was positive for subacute cerebellar stroke with question petechial hemorrhage and decreased vertebral flow. I did interview the patient and his , the patient was seen in the emergency department on 03/29/2022 after he was working in the yard mowing his lawn for approximately 4 hours and experienced An episode where he collapsed , wasconfusion and experience room spinning. That time the patient's CT scan of the head was negative and he was treated with IV fluids and discharged home the diagnosis of heat exhaustion. The patient has continued to have dizziness and ataxia and his PCP ordered a MRI which was suggestive of subacute infarcts in the right greater than left cerebellum with possible petechial subacute brought products associated with 1 of the infarcts and loss of the distal cervical and intradural right vertebral artery flow void suggesting slow flow within versus occlusion of this vessel that be better assessed with a CTA of the head and neck. CT angiogram of the head and neck revealed multiple areas of arthrosclerosis in the patient's arterial circulation and specifically no flow in the common and internal carotid arteries as well as the right vertebral artery. Given the subacute nature of the patient's cerebellar infarct, I do not think that any of these occlusions require acute intervention. I did discuss this with the patient and the patient's . I also discussed the patient's presentation these findings with the covering hospitalist, Dr. Pradhan and the patient will be admitted to the hospital service for further management and workup of his subacute cerebellar stroke. ? <Leonides Lane MD - Last Filed: 04/07/22 20:59> Time: 20:48 <Leonides Lane MD - Last Filed: 04/07/22 20:59> Medical Decision Making [facility] Narrative Medical decision making narrative: 86-year-old male with a past medical history of BPH, laryngeal cancer s/p tracheostomy, HTN, hypothyroid, sent to ED from outpatient MRI for abnormal findings. On exam vital signs stable, NAD, nontoxic appearing, no focal neuro deficits. Brain MRI showing subacute infarcts with possible vessel occlusion recommending CTA of the head and neck Plan: EKG, labs, CTA head and neck, admission <EMMANUELLE Garcia - Last Filed: 04/07/22 18:51> Medical Records Medical records reviewed: Yes I reviewed the patient's medical records. <EMMANUELLE Garcia - Last Filed: 04/07/22 18:51> Lab Data Lab results reviewed: Yes I reviewed the patient's lab results. <EMMANUELLE Garcia - Last Filed: 04/07/22 18:51> Result diagrams: : 04/07/22 17:14 04/07/22 17:15 <EMMANUELLE Garcia - Last Filed: 04/07/22 18:51> Labs: Lab Results 04/07/22 04/07/22 04/07/22 Range/Units 17:14 17:14 17:14 WBC 6.9 (4.8-10.8) X10*3/uL RBC 4.40 L (4.60-5.80) X10*6/uL Hgb 14.3 (14.0-18.0) g/dl Hct 41.8 L (42.0-52.0) % MCV 95.0 (80.0-98.0) fL MCH 32.5 (27.0-33.0) pg MCHC 34.2 (31.0-36.0) g/dl RDW 12.9 (11.0-16.0) % Plt Count 178 (160-400) X10*3/uL MPV 10.4 (9.4-12.4) fL Immature Gran % (Auto) 0.7 H (0.0-0.4) % Neut % (Auto) 71.3 (45-73) % Lymph % (Auto) 15.5 L (20-40) % [place]clennan % (Auto) 9.7 (2-11) % Eos % (Auto) 2.5 (0-4) % Baso % (Auto) 0.3 (0-2) % Lymph # (Auto) 1.1 L (1.2-4.9) X10*3/uL [place]clennan # (Auto) 0.7 (0.1-1.2) X10*3/uL Eos # (Auto) 0.2 (0.0-0.4) X10*3/uL Baso # (Auto) 0.0 (0.0-0.2) X10*3/uL Abs Immat Gran (auto) 0.05 H (0.00-0.03) X10*3/uL Absolute Neuts (auto) 4.9 (2.0-8.3) x10*3/uL Absolute Nucleated RBC 0.000 (0.0-0.012) X10*3/uL Nucleated RBC % (auto) 0.0 (0.0-0.2) /100WBC PT (10.0-13.1) SEC INR (0.9-1.1) APTT (24.1-38.0) SEC Sodium (135-145) mmol/L Potassium (3.3-5.1) mmol/L Chloride (96-108) mmol/L Carbon Dioxide (22-29) mmol/L Anion Gap (12-20) BUN (9-16) mg/dL Creatinine (0.5-1.4) mg/dL Estim Creat Clear Calc Estimated GFR Random Glucose (60-115) mg/dL Calcium (8.4-10.2) mg/dL Magnesium (1.6-2.6) mg/dL Total Bilirubin (0.0-1.0) mg/dL Direct Bilirubin (0.0-0.5) mg/dL AST (5-37) U/L ALT (0-40) U/L Alkaline Phosphatase (39-117) U/L Troponin I High Sens (<3.5-35.0) ng/L Total Protein (6.5-8.0) g/dL Albumin (3.5-5.0) g/dL Urine Color Urine Appearance Urine pH (5.0-8.0) Ur Specific [place] (1.005-1.025) Urine Protein (NEG-TRACE) MG/DL Urine Glucose (UA) (NEG) MG/DL Urine Ketones (NEG) MG/DL Urine Blood (NEG) Urine Nitrite (NEG) Ur Leukocyte Esterase (NEG) COVID-19 (DWAYNE) Negative (Negative) COVID-19 Clin Com See Note Influenza Type A (ALBA) Negative (Negative) Influenza Type B (ALBA) Negative (Negative) Influenza A & B Note See Note 04/07/22 04/07/22 04/07/22 Range/Units 17:15 17:15 18:08 WBC (4.8-10.8) X10*3/uL RBC (4.60-5.80) X10*6/uL Hgb (14.0-18.0) g/dl Hct (42.0-52.0) % MCV (80.0-98.0) fL MCH (27.0-33.0) pg MCHC (31.0-36.0) g/dl RDW (11.0-16.0) % Plt Count (160-400) X10*3/uL MPV (9.4-12.4) fL Immature Gran % (Auto) (0.0-0.4) % Neut % (Auto) (45-73) % Lymph % (Auto) (20-40) % Mclennan % (Auto) (2-11) % Eos % (Auto) (0-4) % Baso % (Auto) (0-2) % Lymph # (Auto) (1.2-4.9) X10*3/uL [place]cl[place]an # (Auto) (0.1-1.2) X10*3/uL Eos # (Auto) (0.0-0.4) X10*3/uL Baso # (Auto) (0.0-0.2) X10*3/uL Abs Immat Gran (auto) (0.00-0.03) X10*3/uL Absolute Neuts (auto) (2.0-8.3) x10*3/uL Absolute Nucleated RBC (0.0-0.012) X10*3/uL Nucleated RBC % (auto) (0.0-0.2) /100WBC PT 11.3 (10.0-13.1) SEC INR 1.0 (0.9-1.1) APTT 32.8 (24.1-38.0) SEC Sodium 139 (135-145) mmol/L Potassium 3.5 (3.3-5.1) mmol/L Chloride 106 (96-108) mmol/L Carbon Dioxide 26 (22-29) mmol/L Anion Gap 11 L (12-20) BUN 23 H (9-16) mg/dL Creatinine 1.15 (0.5-1.4) mg/dL Estim Creat Clear Calc 42.1 Estimated GFR > 60 Random Glucose 106 (60-115) mg/dL Calcium 9.3 (8.4-10.2) mg/dL Magnesium 2.0 (1.6-2.6) mg/dL Total Bilirubin 0.6 (0.0-1.0) mg/dL Direct Bilirubin 0.3 (0.0-0.5) mg/dL AST 17 (5-37) U/L ALT 13 (0-40) U/L Alkaline Phosphatase 99 (39-117) U/L Troponin I High Sens 19.3 D (<3.5-35.0) ng/L Total Protein 6.7 (6.5-8.0) g/dL Albumin 4.0 (3.5-5.0) g/dL Urine Color Urine Appearance Urine pH (5.0-8.0) Ur Specific [place] (1.005-1.025) Urine Protein (NEG-TRACE) MG/DL Urine Glucose (UA) (NEG) MG/DL Urine Ketones (NEG) MG/DL Urine Blood (NEG) Urine Nitrite (NEG) Ur Leukocyte Esterase (NEG) COVID-19 (DWAYNE) (Negative) COVID-19 Clin Com Influenza Type A (ALBA) (Negative) Influenza Type B (ALBA) (Negative) Influenza A & B Note 04/07/22 04/07/22 Range/Units 18:08 18:08 WBC (4.8-10.8) X10*3/uL RBC (4.60-5.80) X10*6/uL Hgb (14.0-18.0) g/dl Hct (42.0-52.0) % MCV (80.0-98.0) fL MCH (27.0-33.0) pg MCHC (31.0-36.0) g/dl RDW (11.0-16.0) % Plt Count (160-400) X10*3/uL MPV (9.4-12.4) fL Immature Gran % (Auto) (0.0-0.4) % Neut % (Auto) (45-73) % Lymph % (Auto) (20-40) % Mclennan % (Auto) (2-11) % Eos % (Auto) (0-4) % Baso % (Auto) (0-2) % Lymph # (Auto) (1.2-4.9) X10*3/uL [place]clennan # (Auto) (0.1-1.2) X10*3/uL Eos # (Auto) (0.0-0.4) X10*3/uL Baso # (Auto) (0.0-0.2) X10*3/uL Abs Immat Gran (auto) (0.00-0.03) X10*3/uL Absolute Neuts (auto) (2.0-8.3) x10*3/uL Absolute Nucleated RBC (0.0-0.012) X10*3/uL Nucleated RBC % (auto) (0.0-0.2) /100WBC PT (10.0-13.1) SEC INR (0.9-1.1) APTT (24.1-38.0) SEC Sodium (135-145) mmol/L Potassium (3.3-5.1) mmol/L Chloride (96-108) mmol/L Carbon Dioxide (22-29) mmol/L Anion Gap (12-20) BUN (9-16) mg/dL Creatinine (0.5-1.4) mg/dL Estim Creat Clear Calc Estimated GFR Random Glucose (60-115) mg/dL Calcium (8.4-10.2) mg/dL Magnesium (1.6-2.6) mg/dL Total Bilirubin (0.0-1.0) mg/dL Direct Bilirubin (0.0-0.5) mg/dL AST (5-37) U/L ALT (0-40) U/L Alkaline Phosphatase (39-117) U/L Troponin I High Sens 22.6 (<3.5-35.0) ng/L Total Protein (6.5-8.0) g/dL Albumin (3.5-5.0) g/dL Urine Color YELLOW Urine Appearance CLEAR Urine pH 6.0 (5.0-8.0) Ur Specific [place] 1.010 (1.005-1.025) Urine Protein NEG (NEG-TRACE) MG/DL Urine Glucose (UA) NEG (NEG) MG/DL Urine Ketones NEG (NEG) MG/DL Urine Blood NEG (NEG) Urine Nitrite NEG (NEG) Ur Leukocyte Esterase NEG (NEG) COVID-19 (DWAYNE) (Negative) COVID-19 Clin Com Influenza Type A (ALBA) (Negative) Influenza Type B (ALBA) (Negative) Influenza A & B Note <EMMANUELLE Garcia - Last Filed: 04/07/22 18:51> Lab Results 04/07/22 04/07/22 04/07/22 Range/Units 17:14 17:14 17:14 WBC 6.9 (4.8-10.8) X10*3/uL RBC 4.40 L (4.60-5.80) X10*6/uL Hgb 14.3 (14.0-18.0) g/dl Hct 41.8 L (42.0-52.0) % MCV 95.0 (80.0-98.0) fL MCH 32.5 (27.0-33.0) pg MCHC 34.2 (31.0-36.0) g/dl RDW 12.9 (11.0-16.0) % Plt Count 178 (160-400) X10*3/uL MPV 10.4 (9.4-12.4) fL Immature Gran % (Auto) 0.7 H (0.0-0.4) % Neut % (Auto) 71.3 (45-73) % Lymph % (Auto) 15.5 L (20-40) % Mclennan % (Auto) 9.7 (2-11) % Eos % (Auto) 2.5 (0-4) % Baso % (Auto) 0.3 (0-2) % Lymph # (Auto) 1.1 L (1.2-4.9) X10*3/uL Mclennan # (Auto) 0.7 (0.1-1.2) X10*3/uL Eos # (Auto) 0.2 (0.0-0.4) X10*3/uL Baso # (Auto) 0.0 (0.0-0.2) X10*3/uL Abs Immat Gran (auto) 0.05 H (0.00-0.03) X10*3/uL Absolute Neuts (auto) 4.9 (2.0-8.3) x10*3/uL Absolute Nucleated RBC 0.000 (0.0-0.012) X10*3/uL Nucleated RBC % (auto) 0.0 (0.0-0.2) /100WBC PT (10.0-13.1) SEC INR (0.9-1.1) APTT (24.1-38.0) SEC Sodium (135-145) mmol/L Potassium (3.3-5.1) mmol/L Chloride (96-108) mmol/L Carbon Dioxide (22-29) mmol/L Anion Gap (12-20) BUN (9-16) mg/dL Creatinine (0.5-1.4) mg/dL Estim Creat Clear Calc Estimated GFR Random Glucose (60-115) mg/dL Calcium (8.4-10.2) mg/dL Magnesium (1.6-2.6) mg/dL Total Bilirubin (0.0-1.0) mg/dL Direct Bilirubin (0.0-0.5) mg/dL AST (5-37) U/L ALT (0-40) U/L Alkaline Phosphatase (39-117) U/L Troponin I High Sens (<3.5-35.0) ng/L Total Protein (6.5-8.0) g/dL Albumin (3.5-5.0) g/dL Urine Color Urine Appearance Urine pH (5.0-8.0) Ur Specific [place] (1.005-1.025) Urine Protein (NEG-TRACE) MG/DL Urine Glucose (UA) (NEG) MG/DL Urine Ketones (NEG) MG/DL Urine Blood (NEG) Urine Nitrite (NEG) Ur Leukocyte Esterase (NEG) COVID-19 (DWAYNE) Negative (Negative) COVID-19 Clin Com See Note Influenza Type A (ALBA) Negative (Negative) Influenza Type B (ALBA) Negative (Negative) Influenza A & B Note See Note 04/07/22 04/07/22 04/07/22 Range/Units 17:15 17:15 18:08 WBC (4.8-10.8) X10*3/uL RBC (4.60-5.80) X10*6/uL Hgb (14.0-18.0) g/dl Hct (42.0-52.0) % MCV (80.0-98.0) fL MCH (27.0-33.0) pg MCHC (31.0-36.0) g/dl RDW (11.0-16.0) % Plt Count (160-400) X10*3/uL MPV (9.4-12.4) fL Immature Gran % (Auto) (0.0-0.4) % Neut % (Auto) (45-73) % Lymph % (Auto) (20-40) % [place]cl[place] % (Auto) (2-11) % Eos % (Auto) (0-4) % Baso % (Auto) (0-2) % Lymph # (Auto) (1.2-4.9) X10*3/uL [place]cl[place] # (Auto) (0.1-1.2) X10*3/uL Eos # (Auto) (0.0-0.4) X10*3/uL Baso # (Auto) (0.0-0.2) X10*3/uL Abs Immat Gran (auto) (0.00-0.03) X10*3/uL Absolute Neuts (auto) (2.0-8.3) x10*3/uL Absolute Nucleated RBC (0.0-0.012) X10*3/uL Nucleated RBC % (auto) (0.0-0.2) /100WBC PT 11.3 (10.0-13.1) SEC INR 1.0 (0.9-1.1) APTT 32.8 (24.1-38.0) SEC Sodium 139 (135-145) mmol/L Potassium 3.5 (3.3-5.1) mmol/L Chloride 106 (96-108) mmol/L Carbon Dioxide 26 (22-29) mmol/L Anion Gap 11 L (12-20) BUN 23 H (9-16) mg/dL Creatinine 1.15 (0.5-1.4) mg/dL Estim Creat Clear Calc 42.1 Estimated GFR > 60 Random Glucose 106 (60-115) mg/dL Calcium 9.3 (8.4-10.2) mg/dL Magnesium 2.0 (1.6-2.6) mg/dL Total Bilirubin 0.6 (0.0-1.0) mg/dL Direct Bilirubin 0.3 (0.0-0.5) mg/dL AST 17 (5-37) U/L ALT 13 (0-40) U/L Alkaline Phosphatase 99 (39-117) U/L Troponin I High Sens 19.3 D (<3.5-35.0) ng/L Total Protein 6.7 (6.5-8.0) g/dL Albumin 4.0 (3.5-5.0) g/dL Urine Color Urine Appearance Urine pH (5.0-8.0) Ur Specific [place] (1.005-1.025) Urine Protein (NEG-TRACE) MG/DL Urine Glucose (UA) (NEG) MG/DL Urine Ketones (NEG) MG/DL Urine Blood (NEG) Urine Nitrite (NEG) Ur Leukocyte Esterase (NEG) COVID-19 (DWAYNE) (Negative) COVID-19 Clin Com Influenza Type A (ALBA) (Negative) Influenza Type B (ALBA) (Negative) Influenza A & B Note 04/07/22 04/07/22 Range/Units 18:08 18:08 WBC (4.8-10.8) X10*3/uL RBC (4.60-5.80) X10*6/uL Hgb (14.0-18.0) g/dl Hct (42.0-52.0) % MCV (80.0-98.0) fL MCH (27.0-33.0) pg MCHC (31.0-36.0) g/dl RDW (11.0-16.0) % Plt Count (160-400) X10*3/uL MPV (9.4-12.4) fL Immature Gran % (Auto) (0.0-0.4) % Neut % (Auto) (45-73) % Lymph % (Auto) (20-40) % [place] % (Auto) (2-11) % Eos % (Auto) (0-4) % Baso % (Auto) (0-2) % Lymph # (Auto) (1.2-4.9) X10*3/uL [place] # (Auto) (0.1-1.2) X10*3/uL Eos # (Auto) (0.0-0.4) X10*3/uL Baso # (Auto) (0.0-0.2) X10*3/uL Abs Immat Gran (auto) (0.00-0.03) X10*3/uL Absolute Neuts (auto) (2.0-8.3) x10*3/uL Absolute Nucleated RBC (0.0-0.012) X10*3/uL Nucleated RBC % (auto) (0.0-0.2) /100WBC PT (10.0-13.1) SEC INR (0.9-1.1) APTT (24.1-38.0) SEC Sodium (135-145) mmol/L Potassium (3.3-5.1) mmol/L Chloride (96-108) mmol/L Carbon Dioxide (22-29) mmol/L Anion Gap (12-20) BUN (9-16) mg/dL Creatinine (0.5-1.4) mg/dL Estim Creat Clear Calc Estimated GFR Random Glucose (60-115) mg/dL Calcium (8.4-10.2) mg/dL Magnesium (1.6-2.6) mg/dL Total Bilirubin (0.0-1.0) mg/dL Direct Bilirubin (0.0-0.5) mg/dL AST (5-37) U/L ALT (0-40) U/L Alkaline Phosphatase (39-117) U/L Troponin I High Sens 22.6 (<3.5-35.0) ng/L Total Protein (6.5-8.0) g/dL Albumin (3.5-5.0) g/dL Urine Color YELLOW Urine Appearance CLEAR Urine pH 6.0 (5.0-8.0) Ur Specific [place] 1.010 (1.005-1.025) Urine Protein NEG (NEG-TRACE) MG/DL Urine Glucose (UA) NEG (NEG) MG/DL Urine Ketones NEG (NEG) MG/DL Urine Blood NEG (NEG) Urine Nitrite NEG (NEG) Ur Leukocyte Esterase NEG (NEG) COVID-19 (DWAYNE) (Negative) COVID-19 Clin Com Influenza Type A (ALBA) (Negative) Influenza Type B (ALBA) (Negative) Influenza A & B Note <Leonides Lane MD - Last Filed: 04/07/22 20:59> Discharge Plan Discharge Clinical Impression: Cerebellar infarction <EMMANUELLE Garcia - Last Filed: 04/07/22 18:51> Patient Disposition: Still a Patient <EMMANUELLE Garcia - Last Filed: 04/07/22 18:51> Prescriptions: No Action tamsulosin 0.4 mg capsule 0.4 mg PO DAILY Qty: 90 3RF hydrochlorothiazide 12.5 mg tablet 12.5 mg PO QAM Qty: 90 3RF levothyroxine 75 mcg tablet 75 mcg PO BEDTIME multivitamin Tablet 1 tab PO DAILY calcium carbonate-vitamin D3 [Calcium 600 with Vitamin D3] 600 mg(1,500mg) - 500 unit capsule 2 cap PO DAILY <EMMANUELLE Garcia - Last Filed: 04/07/22 18:51>
[2022-04-07 17:46] LABS: Troponin-I High Sensitivity 19.3 ng/L (<3.5-35.0)
[2022-04-07 18:16] LABS: Appearance Urine CLEAR; Color Urine YELLOW; Glucose Urine UA NEG (NEG); Leukocyte Esterase Urine NEG (NEG); Nitrite Urine NEG (NEG); Urine Blood NEG (NEG); Urine Ketones NEG (NEG); Urine Protein NEG (NEG-TRACE)
[2022-04-07 18:21] LABS: Prothrombin Time 11.3 SEC (10.0-13.1)
[2022-04-07 18:23] LABS: Partial Thromboplastin Time 32.8 SEC (24.1-38.0)
--- NOTE | 2022-04-07 18:25 | PHA.MEDREC ---
Pharmacy Consult ? Medication Reconciliation Pharmacy has completed the medication reconciliation.
[2022-04-07 18:37] LABS: Troponin-I High Sensitivity 22.6 ng/L (<3.5-35.0)
[2022-04-07] MEDS: iohexoL 350 MG/ML 100 ML INFUS..BTL IV (19:08)
--- NOTE | 2022-04-07 21:22 | PC.NURSE ---
pt states he feels dizzy and like the room is spinning, aware
[2022-04-07 21:44] VITALS: BP 156/66; PULSE 55; RESP 11; O2SAT 93
[2022-04-07] MEDS: Meclizine HCl 25 MG TABLET PO (21:45)
[2022-04-07 21:57] VITALS: BP 156/66; PULSE 55; RESP 66; TEMP 36.7; O2SAT 90
[2022-04-07 23:35] VITALS: BP 126/61; PULSE 66; RESP 21; O2SAT 95
--- NOTE | 2022-04-07 23:40 | PM.IMHP ---
History of Present Illness Date of Service: 04/07/22 Chief Complaint: Dizziness, balance problems This is a an 86-year-old male with past medical history of laryngeal cancer status post laryngectomy, HTN, hypothyroidism, BPH, hearing loss presents to the hospital with 9 day history of dizziness and balance problem. Patient reports that about 9 days ago he was working in the [employer], did heavy [employer] work, few hours later walked into the house and had a near-syncopal episode but did not pass out. He had difficulty standing on his feet, felt significantly dizzy with significant vertigo, and felt like he was passing out and was yelling at his stating that he feels that he was going to . Patient denies any chest pain, felt weak in the legs but no particular numbness or tingling, he reports that he called EMS and they brought him to the hospital but feels that he might have passed out on his way to the hospital cousin next thing he remembers from being home was waking up in the hospital. He reports that ever since then he continued to have significant weakness, difficulty with ambulating due to balance problems, his reports that he had difficulty standing straight, leaning to 1 side constantly, had to use walker to avoid falling and has developed 9 notice and his right hand. Patient otherwise denies any headache, no change in vision, no abdominal pain nausea or vomiting, no diarrhea constipation, no urinary symptoms and no lower extremity edema. No weakness in the legs or arms. Just very difficult with keeping his balance. Due to the balance problems he went to visit his primary care physician today who did an MRI that found areas of low attenuation in the right cerebellar hemisphere corresponding to foci of acute and subacute infarcts on the MRI scan. 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 Therefore patient was called and sent to the ED On arrival to the ED patient hemodynamically stable with no significant abnormal vitals Labs significant for WBC count of 5.9, labs otherwise unremarkable CT angiogram of head and neck showed right external carotid artery does not opacify distal to its origin, the common and internal carotid artery disease are patent without evidence of flow-limiting stenosis, the right vertebral artery does not demonstrate flow from its origin through the upper cervical region, the left vertebral artery arises off the posterior arch of the aorta which is a normal variant. Patient will be admitted for further management Review of Systems Review of Systems: Yes all other systems are reviewed and are negative [facility] Medical History BPH (benign prostatic hyperplasia) History of laryngeal cancer Hypertension Hypothyroid Impaired glucose tolerance Tubular adenoma of colon Vocal cord papilloma virus Family History Father No problems noted. Mother No problems noted. Surgical History History of cataract surgery History of left knee replacement History of total right knee replacement Social History Housing: House Alcohol intake: current Alcohol intake frequency: does not drink Patient Tobacco Use Status: Never used Tobacco e-Cigarette/Vaping Use: Never Used Second Hand Smoke Exposure: No Use of substances other than those prescribed or required for medical reasons: No Advance Directives: No Advance Directives Information Provided: No Current occupational status: retired Cognitive needs: No Hearing needs: No Vision needs: Yes Meds Allergies Allergy/AdvReac Type Severity Reaction Status Date / Time No Known Allergies Allergy Verified 03/24/22 12:57 Active Medications: Current Medications Pharmacy Consult (Consult Rx Perform Med Rec) 1 each MISCELLANE ONCE PRN PRN Reason: Consult order Home Medications Medication Instructions Recorded Confirmed Last Taken Type calcium carbonate 600 mg-vitamin 2 cap PO DAILY 08/05/20 04/07/22 04/07/22 History D3 12.5 mcg (500 unit) capsule (Calcium 600 with Vitamin D3) multivitamin 1 tab PO DAILY 08/05/20 04/07/22 04/07/22 History levothyroxine 75 mcg tablet 75 mcg PO BEDTIME 04/07/22 04/07/22 04/06/22 History Physical Exam Vital Signs and Narrative: Vital Signs: Last Vital Signs Temp 98.0 F 04/07/22 21:57 Pulse 66 04/07/22 23:35 Resp 21 H 04/07/22 23:35 BP 126/61 04/07/22 23:35 Pulse Ox 95 04/07/22 23:35 O2 Del Method 04/07/22 23:35 BMI result Body Mass Index 21.2 Const: General: cooperative and no acute distress Orientation/consciousness: patient oriented x3 HEENT: Other: Trach present, patient able to speak through the trach tube Eyes: General: appearance normal, both eyes and all related structures Pupils: Equal, round and reactive pupils present Resp: Effort & Inspection: normal respiratory effort Auscultation: clear to auscultation bilaterally Cardio: Rate: regular rate Rhythm: regular rhythm GI: Palpation (GI): Soft to palpation Auscultation: normal bowel sounds Skin: General skin exam: no rashes or lesions noted Neuro: Other: Strength 5 in 5 in all extremities, No visual defects Cranial nerves 2-12 intact General: patient oriented x3 Cranial nerves: Yes Equal, round and reactive pupils present Cognition (Neuro): normal cognition Extrem: General: Yes normal to inspection and Yes no pedal edema Results Labs CBC and Chem 7: 04/08/22 05:15 04/08/22 00:13 Labs: Laboratory Results - last 24 hr 04/07/22 04/07/22 04/07/22 17:14 17:14 17:14 MCV 95.0 MCH 32.5 MCHC 34.2 RDW 12.9 Plt Count 178 MPV 10.4 Immature Gran % (Auto) 0.7 H Neut % (Auto) 71.3 Lymph % (Auto) 15.5 L [place] % (Auto) 9.7 Eos % (Auto) 2.5 Baso % (Auto) 0.3 Lymph # (Auto) 1.1 L [place] # (Auto) 0.7 Eos # (Auto) 0.2 Baso # (Auto) 0.0 Abs Immat Gran (auto) 0.05 H Absolute Neuts (auto) 4.9 Absolute Nucleated RBC 0.000 Nucleated RBC % (auto) 0.0 PT INR APTT Anion Gap Estim Creat Clear Calc Estimated GFR Random Glucose Calcium Magnesium Total Bilirubin Direct Bilirubin AST ALT Alkaline Phosphatase Troponin I High Sens Total Protein Albumin Urine Color Urine Appearance Urine pH Ur Specific Jbphh Urine Protein Urine Glucose (UA) Urine Ketones Urine Blood Urine Nitrite Ur Leukocyte Esterase COVID-19 (DWAYNE) Negative COVID-19 Clin Com See Note Influenza Type A (ALBA) Negative Influenza Type B (ALBA) Negative Influenza A & B Note See Note 04/07/22 04/07/22 04/07/22 17:15 17:15 18:08 MCV MCH MCHC RDW Plt Count MPV Immature Gran % (Auto) Neut % (Auto) Lymph % (Auto) [place] % (Auto) Eos % (Auto) Baso % (Auto) Lymph # (Auto) [place] # (Auto) Eos # (Auto) Baso # (Auto) Abs Immat Gran (auto) Absolute Neuts (auto) Absolute Nucleated RBC Nucleated RBC % (auto) PT 11.3 INR 1.0 APTT 32.8 Anion Gap 11 L Estim Creat Clear Calc 42.1 Estimated GFR > 60 Random Glucose 106 Calcium 9.3 Magnesium 2.0 Total Bilirubin 0.6 Direct Bilirubin 0.3 AST 17 ALT 13 Alkaline Phosphatase 99 Troponin I High Sens 19.3 D Total Protein 6.7 Albumin 4.0 Urine Color Urine Appearance Urine pH Ur Specific Jbphh Urine Protein Urine Glucose (UA) Urine Ketones Urine Blood Urine Nitrite Ur Leukocyte Esterase COVID-19 (DWAYNE) COVID-19 Clin Com Influenza Type A (ALBA) Influenza Type B (ALBA) Influenza A & B Note 04/07/22 04/07/22 18:08 18:08 MCV MCH MCHC RDW Plt Count MPV Immature Gran % (Auto) Neut % (Auto) Lymph % (Auto) [place] % (Auto) Eos % (Auto) Baso % (Auto) Lymph # (Auto) [place] # (Auto) Eos # (Auto) Baso # (Auto) Abs Immat Gran (auto) Absolute Neuts (auto) Absolute Nucleated RBC Nucleated RBC % (auto) PT INR APTT Anion Gap Estim Creat Clear Calc Estimated GFR Random Glucose Calcium Magnesium Total Bilirubin Direct Bilirubin AST ALT Alkaline Phosphatase Troponin I High Sens 22.6 Total Protein Albumin Urine Color YELLOW Urine Appearance CLEAR Urine pH 6.0 Ur Specific Jbphh 1.010 Urine Protein NEG Urine Glucose (UA) NEG Urine Ketones NEG Urine Blood NEG Urine Nitrite NEG Ur Leukocyte Esterase NEG COVID-19 (DWAYNE) COVID-19 Clin Com Influenza Type A (ALBA) Influenza Type B (ALBA) Influenza A & B Note Imaging Radiologist's Impressions: Impressions Head/Neck CTA 04/07/22 19:16 IMPRESSION: CT head and neck: 1. There are areas of low-attenuation in the right cerebellar hemisphere, corresponding to the acute and subacute infarcts demonstrated on prior MRI scan. There is no evidence of hemorrhage. 2. There is diffuse volume loss and there are chronic microvascular ischemic changes. 3. There are sequelae of a tracheostomy; no tracheostomy tube is noted in position. 4. There is severe spondylosis on the right at C4-C5. CTA neck: 1. There are atheromatous calcifications of the aortic arch and at the proximal right cervical internal carotid artery. 2. The right external carotid artery does not opacify distal to its origin. 3. The common and internal carotid arteries are patent without evidence of flow-limiting stenosis. 4. The right vertebral artery does not demonstrate flow from its origin through the upper cervical region, but flow is demonstrated extending intradurally. The left vertebral artery arises off the posterior arch of the aorta, a normal variant. CT head: 1. There are atheromatous calcifications of the cavernous internal carotid arteries, but the vessels are patent. 2. There are no focal stenoses, vascular malformations or aneurysms. 3. Intradurally the right vertebral artery is patent. Assessment and Plan (1) Ataxia: Status: Acute (2) Cerebellar infarction: Status: Acute (3) Vertigo: Status: Acute (4) CVA (cerebral vascular accident): Status: Acute Plan For 86-year-old male with past medical history of BPH, hypertension, hypothyroidism, history of laryngeal cancer status post laryngectomy and trach in place since the hospital with vertigo, as well as ataxia found to have acute to subacute infarct # ataxia - likely secondary to cerebellar infarct seen on CT as well as MRI done day of presentation - will consult Neurology, PT OT for the ataxia # cerebellar infarct/CVA - as seen on imaging above - likely secondary to stenosis the vertebral artery - will place on telemetry - lipid battery - aspirin and statin - neurology consulted # vertigo - secondary to above - meclizine p.r.n. - physical therapy # hypertension - stable - hold antihypertensive for permissive hypertension as patient also has evidence of acute infarct # hypothyroidism - continue levothyroxine DVT prophylaxis: Lovenox of may require anticoagulation given the nature of the CVA Quality Stroke Does the patient have a stroke diagnosis?: No VTE Prior VTE?: No VTE Risk Level:: Medical - moderate - high VTE Device Contraindication: Treatment Not Indicated VTE Drug Contraindication: N/A - Med Ordered
[2022-04-08 00:34] LABS: Anion Gap 12 (12-20); Blood Urea Nitrogen 21 mg/dL (9-16); Calcium 8.7 mg/dL (8.4-10.2); Carbon Dioxide 26 mmol/L (22-29); Chloride 106 mmol/L (96-108); Creatinine Clr Calc Pharmacy 44.5; Estimated Glomerular Filt Rate > 60; Glucose Random 114 mg/dL (60-115); Potassium 3.8 mmol/L (3.3-5.1); Sodium 140 mmol/L (135-145)
[2022-04-08 04:13] VITALS: BP 109/53; PULSE 62; RESP 16; O2SAT 94
[2022-04-08 05:20] LABS: MANUAL DIFF FLAG NO
[2022-04-08 05:21] LABS: Basophils Percent Auto 0.7 % (0-2); Eosinophils Absolute Auto 0.2 X10*3/uL (0.0-0.4); Eosinophils Percent Auto 3.1 % (0-4); Hematocrit 39.2 % (42.0-52.0); Hemoglobin 13.5 g/dl (14.0-18.0); Imm Gran Abs Auto 0.03 X10*3/uL (0.00-0.03); Imm Gran Pct Auto 0.5 % (0.0-0.4); Lymphocytes Absolute Auto 1.2 X10*3/uL (1.2-4.9); Mean Corpuscular HGB Conc 34.4 g/dl (31.0-36.0); Mean Corpuscular Hemoglobin 32.5 pg (27.0-33.0); Mean Corpuscular Volume 94.5 fL (80.0-98.0); Mean Platelet Volume 10.5 fL (9.4-12.4); Monocytes Absolute Auto 0.6 X10*3/uL (0.1-1.2); Monocytes Percent Auto 10.9 % (2-11); Neutrophils Absolute Auto 3.8 x10*3/uL (2.0-8.3); Neutrophils Percent Auto 64.8 % (45-73); Platelet Count 178 X10*3/uL (160-400); Red Blood Count 4.15 X10*6/uL (4.60-5.80); Red Cell Distribution Width 12.9 % (11.0-16.0); White Blood Count 5.9 X10*3/uL (4.8-10.8)
[2022-04-08 05:50] LABS: Cholesterol 153 mg/dL; HDL Cholesterol 53 mg/dL; LDL Cholesterol Calculated 88 mg/dl; Triglycerides 62 mg/dL
[2022-04-08 07:42] VITALS: BP 109/53; PULSE 62; O2SAT 94
--- NOTE | 2022-04-08 08:30 | HO.PM.IMPN ---
Subjective Subjective Date of Service: 04/08/22 Interval History: Seen in f/u for cerebellar stroke with ataxia, dizzines vertigo Interval history: feels better, ambulated with walker wit some degree of unsteadiness Review of Systems Gen: no fever Resp: no sob, no cough CV: no chest, no REGALADO, no leg edema GI: No n/v, no abd pain Neuro: No confusion, dizzy, unsteady gait Physical Exam Vital Signs: Vital Signs: Last Vital Signs Temp 98.0 F 04/07/22 21:57 Pulse 62 04/08/22 07:42 Resp 16 04/08/22 04:13 BP 109/53 L 04/08/22 07:42 Pulse Ox 94 04/08/22 07:42 O2 Del Method 04/08/22 04:13 BMI result Body Mass Index 21.2 Const: Other: General: AO X 3, no acute distress Resp: CTA bilateral CVS: S1,S2,RRR GI: +BS, NT, no distention Skin: No rash Neuro: motor grossly intact Psych: appropriate affect Objective Data Active Medications Acetaminophen (Acetaminophen 325 Mg Tablet) 650 mg PO Q6H PRN PRN Reason: Pain, Mild (Pain Scale 1-3) Aspirin (Aspirin Enteric Coated 81 Mg Tablet.Dr) 81 mg PO DAILY [facility] Atorvastatin Calcium (Atorvastatin Calcium 80 Mg Tablet) 80 mg PO DAILY [facility] Calcium Carbonate/Cholecalciferol (Calcium + Vitamin D 250 Mg Tablet) 500 mg PO DAILY [facility] Docusate Sodium (Docusate Sodium 100 Mg Capsule) 100 mg PO DAILY PRN PRN Reason: Constipation Enoxaparin Sodium (Enoxaparin Sodium 40 Mg/0.4 Ml Syringe) 40 mg SUBCUT Q24H [facility] Levothyroxine Sodium (Levothyroxine Sodium 75 Mcg Tablet) 75 mcg PO BEDTIME [facility] Multivitamins/Vitamin C (Multivitamin Tablet) 1 tab PO DAILY [facility] Ondansetron HCl (Ondansetron Hcl 4 Mg/2 Ml Vial) 4 mg IVPUSH Q8H PRN PRN Reason: Nausea and Vomiting Pharmacy Consult (Consult Rx Perform Med Rec) 1 each MISCELLANE ONCE PRN PRN Reason: Consult order Tamsulosin HCl (Tamsulosin Hcl 0.4 Mg Capsule) 0.4 mg PO DAILY [facility] Labs CBC & Chem 7: 04/08/22 05:15 04/08/22 00:13 Labs: Laboratory Results - last 24 hr 04/07/22 04/07/22 04/07/22 17:14 17:14 17:14 MCV 95.0 MCH 32.5 MCHC 34.2 RDW 12.9 Plt Count 178 MPV 10.4 Immature Gran % (Auto) 0.7 H Neut % (Auto) 71.3 Lymph % (Auto) 15.5 L [place] % (Auto) 9.7 Eos % (Auto) 2.5 Baso % (Auto) 0.3 Lymph # (Auto) 1.1 L [place] # (Auto) 0.7 Eos # (Auto) 0.2 Baso # (Auto) 0.0 Abs Immat Gran (auto) 0.05 H Absolute Neuts (auto) 4.9 Absolute Nucleated RBC 0.000 Nucleated RBC % (auto) 0.0 PT INR APTT Anion Gap Estim Creat Clear Calc Estimated GFR Random Glucose Calcium Magnesium Total Bilirubin Direct Bilirubin AST ALT Alkaline Phosphatase Troponin I High Sens Total Protein Albumin Triglycerides Cholesterol LDL Cholesterol, Calc HDL Cholesterol Urine Color Urine Appearance Urine pH Ur Specific [place] Urine Protein Urine Glucose (UA) Urine Ketones Urine Blood Urine Nitrite Ur Leukocyte Esterase COVID-19 (DWAYNE) Negative COVID-19 Clin Com See Note Influenza Type A (ALBA) Negative Influenza Type B (ALBA) Negative Influenza A & B Note See Note 04/07/22 04/07/22 04/07/22 17:15 17:15 18:08 MCV MCH MCHC RDW Plt Count MPV Immature Gran % (Auto) Neut % (Auto) Lymph % (Auto) [place] % (Auto) Eos % (Auto) Baso % (Auto) Lymph # (Auto) [place] # (Auto) Eos # (Auto) Baso # (Auto) Abs Immat Gran (auto) Absolute Neuts (auto) Absolute Nucleated RBC Nucleated RBC % (auto) PT 11.3 INR 1.0 APTT 32.8 Anion Gap 11 L Estim Creat Clear Calc 42.1 Estimated GFR > 60 Random Glucose 106 Calcium 9.3 Magnesium 2.0 Total Bilirubin 0.6 Direct Bilirubin 0.3 AST 17 ALT 13 Alkaline Phosphatase 99 Troponin I High Sens 19.3 D Total Protein 6.7 Albumin 4.0 Triglycerides Cholesterol LDL Cholesterol, Calc HDL Cholesterol Urine Color Urine Appearance Urine pH Ur Specific [place] Urine Protein Urine Glucose (UA) Urine Ketones Urine Blood Urine Nitrite Ur Leukocyte Esterase COVID-19 (DWAYNE) COVID-19 Clin Com Influenza Type A (ALBA) Influenza Type B (ALBA) Influenza A & B Note 04/07/22 04/07/22 04/08/22 18:08 18:08 00:13 MCV MCH MCHC RDW Plt Count MPV Immature Gran % (Auto) Neut % (Auto) Lymph % (Auto) [place] % (Auto) Eos % (Auto) Baso % (Auto) Lymph # (Auto) [place] # (Auto) Eos # (Auto) Baso # (Auto) Abs Immat Gran (auto) Absolute Neuts (auto) Absolute Nucleated RBC Nucleated RBC % (auto) PT INR APTT Anion Gap 12 Estim Creat Clear Calc 44.5 Estimated GFR > 60 Random Glucose 114 Calcium 8.7 D Magnesium Total Bilirubin Direct Bilirubin AST ALT Alkaline Phosphatase Troponin I High Sens 22.6 Total Protein Albumin Triglycerides Cholesterol LDL Cholesterol, Calc HDL Cholesterol Urine Color YELLOW Urine Appearance CLEAR Urine pH 6.0 Ur Specific [place] 1.010 Urine Protein NEG Urine Glucose (UA) NEG Urine Ketones NEG Urine Blood NEG Urine Nitrite NEG Ur Leukocyte Esterase NEG COVID-19 (DWAYNE) COVID-19 Clin Com Influenza Type A (ALBA) Influenza Type B (ALBA) Influenza A & B Note 04/08/22 04/08/22 05:15 05:15 MCV 94.5 MCH 32.5 MCHC 34.4 RDW 12.9 Plt Count 178 MPV 10.5 Immature Gran % (Auto) 0.5 H Neut % (Auto) 64.8 Lymph % (Auto) 20.0 [place] % (Auto) 10.9 Eos % (Auto) 3.1 Baso % (Auto) 0.7 Lymph # (Auto) 1.2 [place] # (Auto) 0.6 Eos # (Auto) 0.2 Baso # (Auto) 0.0 Abs Immat Gran (auto) 0.03 Absolute Neuts (auto) 3.8 Absolute Nucleated RBC 0.000 Nucleated RBC % (auto) 0.0 PT INR APTT Anion Gap Estim Creat Clear Calc Estimated GFR Random Glucose Calcium Magnesium Total Bilirubin Direct Bilirubin AST ALT Alkaline Phosphatase Troponin I High Sens Total Protein Albumin Triglycerides 62 Cholesterol 153 LDL Cholesterol, Calc 88 HDL Cholesterol 53 Urine Color Urine Appearance Urine pH Ur Specific [place] Urine Protein Urine Glucose (UA) Urine Ketones Urine Blood Urine Nitrite Ur Leukocyte Esterase COVID-19 (DWAYNE) COVID-19 Clin Com Influenza Type A (ALBA) Influenza Type B (ALBA) Influenza A & B Note Assessment and Plan (1) Vertigo: Status: Acute (2) Ataxia: Status: Acute (3) Cerebellar infarction: Status: Acute (4) CVA (cerebral vascular accident): Status: Acute Plan For 86-year-old male with past medical history of BPH, hypertension, hypothyroidism, 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 Lovenox of may require anticoagulation given the nature of the CVA Need for inaptient: Acute cerebella CVA that can worsen in short term and therefore needs close monitoring in thte imidate setting and watch degeneration Quality Stroke Does the patient have a stroke diagnosis?: No VTE Prior VTE?: No VTE Risk Level:: Medical - moderate - high VTE Device Contraindication: Treatment Not Indicated VTE Drug Contraindication: N/A - Med Ordered
[2022-04-08] MEDS: Tamsulosin HCL 0.4 MG CAPSULE PO (10:52)
[2022-04-08] MEDS: Multivitamin TABLET 1 TAB PO (10:52)
[2022-04-08] MEDS: Aspirin Enteric Coated 81 MG TABLET.DR PO (10:52)
[2022-04-08] MEDS: Atorvastatin Calcium 80 MG TABLET PO (10:52)
[2022-04-08 11:04] VITALS: BP 133/56; PULSE 71; RESP 14; O2SAT 97
--- NOTE | 2022-04-08 12:58 | MHC.CM.PN ---
Addendum entered by Zina Felix 04/08/22 16:14: CM MET WITH PT AND BRIEFLY MICHAEL HAD TO LEAVE FOR AN APPOINTMENT THEY REPORT [facility] IS FIRST CHOICE REFERRAL MADE MICHAEL WILL BE BACK TOMORROW AROUND LUNCH TIME IMM WAS REVIEWED AGAIN WITH BOTH PT AND AND A COPY WAS SENT TO MEDICAL RECORDS Original Note: CM MET WITH PT WHO CONFIRMS HE LIVES AT HOME WITH HIS HE IS AWARE ACUTE REHAB HAS BEEN RECOMMENDED BUT WOULD LIKE TO WAIT FOR HIS , MICHAEL, TO ARRIVE BEFORE HE MAKES A DECISION. CM CALLED MICHAEL WHO REPORTS SHE IS UNSURE IF SHE WANTS HIM TO GO OR WHICH FACILITY SHE MAY PREFER SHE REPORTS SHE WILL TAKE A SHOWER AND BE HERE IN ABOUT AN HOUR CM WILL MEET WITH THEM ONCE SHE ARRIVES IMM WAS DELIVERED TO PT AT BEDSIDE
[2022-04-08 13:15] VITALS: BP 108/69; PULSE 61; RESP 20; O2SAT 96
--- NOTE | 2022-04-08 14:00 | MHC.STROKE ---
Addendum entered by Christy Jimenez RN 04/09/22 12:14: I MET WITH MR. RIVAS THIS MORNING, HE WILL BE DISCHARGED HOME WITH [facility] AND PT/OT SERVICES. WE DISCUSSED HIS DIAGNOSIS, HIS MRI, CTA AND ECHO RESULTS, WE DISCUSSED HIS NEW MEDICATIONS ASPIRIN 81MG AND LIPITOR 20MG AND WHY HE NEEDS TO TAKE THESE MEDICATIONS. HE WILL NEED TO MODIFY HIS ACTIVITY UNTIL HE IS CLEARED BY PT. HE WALKS MILES DAILY, I ALSO ENCOURAGED HIM TO REST IF HE GET TIRED OR DIZZY. WE REVIEWED THE S&S OF STROKE AGAIN, AND THE BOOKLETS. HE KNOWS TO CALL 911 IF SYMPTOMS RETURN. HE DID EXPLAIN HE HAS A HISTORY OF MIGRAINES AND NOW CEREBRAL VASCULAR DISEASE. HE WILL NEED TO FOLLOW UP WITH DR CAMPBELL AND THEN DECIDE WHEN HE NEEDS TO SEE DR. HERNANDEZ A FOLLOW UP VISIT. THE MICHAEL WILL BE IN SHORTLY AND I WILL REINFORCE THIS INFORMATION WITH HER. Addendum entered by Christy Jimenez RN 04/08/22 16:29: I MET WITH THE PATIENT AND HIS TO REVIEW THE PLAN OF CARE AND PROVIDE STROKE EDUCATION, WE REVIEWED THE MRI IMAGES, THE LOCATION OF THE STROKE AND THE CORRESPONDING SYMPTOMS. I ANSWERED ALL OF THEIR QUESTIONS. THE CTA H/N WAS DONE YESTERDAY THEREFORE THE CURRENT ORDER WILL BE CANCELED BECAUSE THIS IS A DUPLICATE ORDER. I DID NOTIFY THE NURSE, OIL HEATERMAN AND PROVIDER. Original Note: PATIENT ARRIVED TO ED 04/07/22 AT 1538 FROM OP MRI SETTING. HE HAD + MRI FOR SUBACUTE CEREBELLAR STROKES. I MET WITH THE PATIENT TODAY HE SAID ON SINCE FEBRUARY HE'S SEEN FEELING VERY DIZZY, HE WAS SEEN BY HIS PCP DR CAMPBELL ON 03/24/22, AN MRI WAS ORDERED. 5 DAYS PRIOR TO THAT VISIT (AROUND 03/19/22) HE HAD ONGOING ISSUES WITH HIS BALANCE AND DIZZINESS, HE THOUGHT IT WAS AN INNER EAR INFECTION, HE HAD BEEN TO A [place] AND THE MUSIC WAS SO LOUD HE HAD TO LEAVE, IT SEEMED TO BE INTERMITTENT BUT THE SYMPTOMS WERE SIMILAR. ON 03/29/22 AT 1730 HE HAD BEEN WORKING IN HIS YARD AND HE HAD VERY SEVERE SYMPTOMS OF BLURRED VISION, BALANCE AND DIZZINESS. THAT PROMPTED HIM TO CALL 911 AND COME TO THE ED. AT THAT TIME HE RECEIVED A CT HEAD, IVF AND HE SAID HE SEEMED BETTER AND WAS DISCHARGED HOME. HE HASN'T FELT WELL SINCE THEN. HE HAS A HISTORY OF HTN, NOT ON AN ANTIPLATELET BUT HAS TAKEN ONE SINCE BEING ADMITTED YESTERDAY. HE IS STARTED ON A STATIN FOR LDL OF 88, ALL STROKE ORDERS ARE IN PLACE. HE WAS EXCLUDED FROM [facility]PA-[facility]TE[facility] BASED ON RECENT SUB-ACUTE STROKES, HE PASSED HIS NURSING SWALLOW SCREEN PRIOR TO ANY PO, NO ISSUES WITH HIS SPEECH, OR SWALLOWING. HE WAS SEEN BY PT/OT AND THEY ARE RECOMMENDING ACUTE REHAB, HE SAID THAT HE IS WILLING TO GO, I DID RELAY THIS TO THE PREFORMING MACHINE OPERATOR. 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 HE IS VERY ACTIVE AND ALSO SPENDS TIME IN [place]. HE IS VERY MOTIVATED TO PARTICIPATE IN IMPROVING HIS HEALTH. HIS LARYNGEAL CANCER AND LARYNGECTOMY WAS 10 YEARS AGO AND HE IS PROUD TO SAY HE IS DOING WELL. I HAVE PROVIDED STROKE EDUCATION AND ANSWERED ALL OF HIS QUESTIONS, HE IS WAITING FOR HIS TO RETURN SO SHE CAN SPEAK WITH THE NEUROLOGIST. I AM TRYING TO COORDINATE THAT. HIS ECHOCARDIOGRAM IS PENDING AND DR HERNANDEZ WILL DETERMINE IF HE NEEDS A CTA HEAD/NECK. I WILL CONTINUE TO FOLLOW.
[2022-04-08] MEDS: Enoxaparin Sodium 40 MG/0.4 ML SYRINGE SUBCUT (14:43)
[2022-04-08] MEDS: Calcium + Vitamin D 250 MG TABLET 500 MG PO (14:44)
--- NOTE | 2022-04-08 15:57 | PC.NURSE ---
Assumed care from the main ED. VSS. Pt resting in hospital bed no c/o pain. medicated per DEC. Stroke educator and case management at bedside speaking to pt.
--- NOTE | 2022-04-08 16:38 | PM.NEUROCN ---
History of Present Illness Data of Consult Service Date: 04/08/22 Primary Care Provider: MD SUMMER Epstein Reason for consult: Stroke 86 years old man who came to hospital with dizziness. Onset was unclear. Imaging was performed that revealed an abnormality prompting this consultation. At this time he was not having any headache nausea or vomiting or any acute symptom. Review of Systems Review of Systems: Recent complaints of dizziness. No fever chills or cold-like symptoms. No recent neck or head trauma. [facility] Past Medical History Medical History BPH (benign prostatic hyperplasia) History of laryngeal cancer Hypertension Hypothyroid Impaired glucose tolerance Tubular adenoma of colon Vocal cord papilloma virus Family History Family History Father No problems noted. Mother No problems noted. Surgical History Surgical History History of cataract surgery History of left knee replacement History of total right knee replacement Social History Social History Housing: House Alcohol intake: current Alcohol intake frequency: does not drink Patient Tobacco Use Status: Never used Tobacco e-Cigarette/Vaping Use: Never Used Second Hand Smoke Exposure: No Use of substances other than those prescribed or required for medical reasons: No Advance Directives: No Advance Directives Information Provided: No Current occupational status: retired Cognitive needs: No Hearing needs: No Vision needs: Yes Meds Allergies Allergy/AdvReac Type Severity Reaction Status Date / Time No Known Allergies Allergy Verified 03/24/22 12:57 Active Medications: Current Medications Acetaminophen (Acetaminophen 325 Mg Tablet) 650 mg PO Q6H PRN PRN Reason: Pain, Mild (Pain Scale 1-3) Aspirin (Aspirin Enteric Coated 81 Mg Tablet.) 81 mg PO DAILY [facility] Last Admin: 04/08/22 10:52 Dose: 81 mg Atorvastatin Calcium (Atorvastatin Calcium 80 Mg Tablet) 80 mg PO DAILY [facility] Last Admin: 04/08/22 10:52 Dose: 80 mg Calcium Carbonate/Cholecalciferol (Calcium + Vitamin D 250 Mg Tablet) 500 mg PO DAILY [facility] Last Admin: 04/08/22 14:44 Dose: 500 mg Docusate Sodium (Docusate Sodium 100 Mg Capsule) 100 mg PO DAILY PRN PRN Reason: Constipation Enoxaparin Sodium (Enoxaparin Sodium 40 Mg/0.4 Ml Syringe) 40 mg SUBCUT Q24H [facility] Last Admin: 04/08/22 14:43 Dose: 40 mg Levothyroxine Sodium (Levothyroxine Sodium 75 Mcg Tablet) 75 mcg PO BEDTIME [facility] Multivitamins/Vitamin C (Multivitamin Tablet) 1 tab PO DAILY [facility] Last Admin: 04/08/22 10:52 Dose: 1 tab Ondansetron HCl (Ondansetron Hcl 4 Mg/2 Ml Vial) 4 mg IVPUSH Q8H PRN PRN Reason: Nausea and Vomiting Pharmacy Consult (Consult Rx Perform Med Rec) 1 each MISCELLANE ONCE PRN PRN Reason: Consult order Tamsulosin HCl (Tamsulosin Hcl 0.4 Mg Capsule) 0.4 mg PO DAILY [facility] Last Admin: 04/08/22 10:52 Dose: 0.4 mg Home Medications Medication Instructions Recorded Confirmed Last Taken Type calcium carbonate 600 mg-vitamin 2 cap PO DAILY 08/05/20 04/07/22 04/07/22 History D3 12.5 mcg (500 unit) capsule (Calcium 600 with Vitamin D3) multivitamin 1 tab PO DAILY 08/05/20 04/07/22 04/07/22 History levothyroxine 75 mcg tablet 75 mcg PO BEDTIME 04/07/22 04/07/22 04/06/22 History Physical Exam Vital Signs: Vital Signs: Last Vital Signs Temp 98.0 F 04/07/22 21:57 Pulse 61 04/08/22 13:15 Resp 20 04/08/22 13:15 BP 108/69 04/08/22 13:15 Pulse Ox 96 04/08/22 13:15 O2 Del Method 04/08/22 13:15 BMI result Body Mass Index 21.2 Neuro: Other: He is alert and awake. He has a tracheostomy tube and he communicates by blocking the tracheostomy tube. Spontaneity and fluency of speech are normal. Affect is normal. He is able to answer simple questions appropriately. Face is symmetrical. Visual castillo are full. There is no obvious focal arm or leg weakness. Plantars are flexors. Deep tendon reflexes are trace to absent. He was able to walk to the bathroom. Results Labs CBC & Chem 7: 04/08/22 05:15 04/08/22 00:13 Labs: Short CBC 04/07/22 04/08/22 Range/Units 17:14 05:15 WBC 6.9 5.9 (4.8-10.8) X10*3/uL Hgb 14.3 13.5 L (14.0-18.0) g/dl Hct 41.8 L 39.2 L (42.0-52.0) % Plt Count 178 178 (160-400) X10*3/uL BMP 04/07/22 04/08/22 17:15 00:13 Sodium 139 140 Potassium 3.5 3.8 Chloride 106 106 Carbon Dioxide 26 26 BUN 23 H 21 H Creatinine 1.15 1.09 Calcium 9.3 8.7 D Liver Function 04/07/22 Range/Units 17:15 Total Bilirubin 0.6 (0.0-1.0) mg/dL Direct Bilirubin 0.3 (0.0-0.5) mg/dL AST 17 (5-37) U/L ALT 13 (0-40) U/L Alkaline Phosphatase 99 (39-117) U/L Albumin 4.0 (3.5-5.0) g/dL Urine 04/07/22 Range/Units 18:08 Urine Color YELLOW Urine Appearance CLEAR Urine pH 6.0 (5.0-8.0) Ur Specific [place] 1.010 (1.005-1.025) Urine Protein NEG (NEG-TRACE) MG/DL Urine Glucose (UA) NEG (NEG) MG/DL Is imaging revealed a right cerebellar patchy infarct with loss of signal for part of right vertebral artery. Moderate chronic microvascular ischemic disease and mild to moderate diffuse cerebral atrophy was noted. 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 He has similar type of chronic ischemic infarctions suggesting that he suffered from atherosclerotic disease of probably small and medium-sized blood vessels. Mainstay of management is anti-platelet agent, statin, blood pressure management and prevention of any other vascular risk factors. Because of bilateral nature of his strokes I also recommend ruling out cardiac source of embolism. Patient usually recover from this type of infarct other than few weeks to months of dizziness or unsteadiness. Procedures Date of Service Date of Service: 04/08/22
--- NOTE | 2022-04-08 17:00 | CA_ITS ---
Transthoracic Echocardiogram Patient (Last, First, Middle): Nathan Braswell R Gender: Male Date of : 1935 Age: 86 Procedure Date: 04/08/2022 Procedure Type: Transthoracic Echocardiogram Location: ER Height: 172.72 cm Weight: 78.02 kg BSA: 1.92 m2 Heart Rate: bpm BP: 114 / 63 mmHg Supervisor Education: ANNITA Referring MD: Harshal Araiza MD Symptoms: embolic strokes Study Quality: Adequate ECG Rhythm: Sinus Conclusions: - The left ventricular systolic function is normal. The calculated ejection fraction is 63% by biplane method. - There is mild aortic valve stenosis. - There is mild mitral annular calcification. Findings Left Ventricle Normal left ventricular cavity size. There is mildly increased left ventricular wall thickness. The left ventricular systolic function is normal. The calculated ejection fraction is 63% by biplane method. There is no evidence of regional wall motion abnormalities. Diastolic function is normal for age. Right Ventricle Normal right ventricular cavity size. There is mildly decreased right ventricular systolic function. Atria Both atria are normal in size. Aortic Valve There is mild calcification of the aortic valve. There is mild aortic valve stenosis. The mean gradient is 12 mmHg. The aortic valve area is 1.87 cm2. There is trace (trivial) aortic valve regurgitation. Mitral Valve There is mild mitral annular calcification. There is no mitral valve regurgitation. There is no mitral valve stenosis. Pulmonic Valve The pulmonic valve is likely normal. Tricuspid Valve Normal tricuspid valve structure. There is trace tricuspid valve regurgitation. The pulmonary artery systolic pressure is normal. Great Vessels The asc aorta is normal in size. Venous The inferior vena cava was not well visualized. Pericardium/Pleural There is no evidence of pericardial effusion. Prior Study Comparison No prior study available for comparison. Measurements 2D Linear Measurements IVSd: 1.11 0.6-0.9/0.6-1.0 cm LVIDd: 4.08 3.9-5.3/4.2-5.9 cm LVIDd Index: 2.13 2.4-3.2/2.2-3.1 cm/m2 LVIDs: 2.36 2.0-3.6 cm LVPWd: 1.07 0.7-1.1 cm LA Diam: 2.80 2.7-3.8/3.0-4.0 cm LAIDs Index: 1.46 1.5-2.3 cm/m2 LV Mass: 184.49 67-162/88-224 g LV Mass Index: 96.09 43-95/49-115 g/m2 LVOT Diam: 2.20 3.0+(-)1.3 cm 2D Systolic Function EF 4C: 68.80 >55% EF 2C: 58.60 >55% EF BiP: 62.90 >55% Mitral Valve MV Pk E: 0.45 MV PK A: 0.68 MV Decel Time: 248.00 E/A: 0.70 E'Lateral: 9.79 E'Medial: 6.09 E/E' Med: 7.30 E/E' Lat: 4.60 PHT: 73.00 MVA PHT: 3.01 Decel Hardeman: 1.79 Aortic Valve AoV Pk Arnold: 2.35 AoV Mn Arnold: 1.60 AoV VTI: 0.39 AoV Pk Grad: 22.00 Aov Mn Grad: 12.00 PIYUSH Cont.VTI: 1.87 AI Pk Arnold: 3.68 AI Hardeman: 2.13 LVOT LVOT Pk Arnold: 0.96 LVOT Mn Arnold: 0.72 LVOT VTI: 0.19 LVOT Pk Grad: 4.00 LVOT Mn Grad: 2.00 LVOT Diam: 2.20 LVOT Area: 3.80 Diastolic Function MV Pk E: 0.45 MV Pk A: 0.68 E/A: 0.70 E'Medial: 6.09 E/E' Med: 7.30 E' Laterial: 9.79 E/E' Lat: 4.60 Right Ventricle TAPSE (mm): 15.40 TVS' Arnold: 8.81 Tricuspid Valve TR Pk Arnold: 2.16 TR Pk Grad: 19.00 Great Vessels Aorta Sinus of Valsalva: 4.28 2.0-3.[address] [place]: 3.02 1.7-3.4 cm Ao Asc: 3.70 2.1-3.4 cm Updated in Other Vendor System with Status of Final Tashi Hanna MD electronically signed on 04/09/2022 11:06:34 AM with status of Final
[2022-04-08 17:12] VITALS: BP 120/60; PULSE 68; RESP 17; TEMP 36.2; O2SAT 96
[2022-04-08] MEDS: Levothyroxine Sodium 75 MCG TABLET PO ×2 (20:20→20:23)
[2022-04-08 20:31] VITALS: BP 142/69; PULSE 76; RESP 13; TEMP 36.6; O2SAT 97
[2022-04-09 00:29] VITALS: BP 110/61; PULSE 64; RESP 16; TEMP 36.1; O2SAT 96
--- NOTE | 2022-04-09 02:00 | PC.NURSE ---
NEUROS STABLE.DENIES HEADACHE,DIZZINESS,CONKLIN,GRASPS EQUAL/STRONG.MONITOR,SR,HR 60'S.LUNGS CLEAR,SAT 96% ON ROOM AIR.
[2022-04-09 04:45] VITALS: BP 109/55; PULSE 56; RESP 19; TEMP 36.3; O2SAT 96
[2022-04-09] MEDS: Enoxaparin Sodium 40 MG/0.4 ML SYRINGE SUBCUT (05:56)
--- NOTE | 2022-04-09 06:09 | PC.NURSE ---
AMBULATED TO WITH WALKER,STEADY GAIT.
[2022-04-09 08:12] VITALS: BP 109/55; PULSE 56; O2SAT 96
[2022-04-09 08:37] VITALS: BP 123/59; PULSE 75; RESP 18; TEMP 36.2; O2SAT 97
--- NOTE | 2022-04-09 10:04 | PM.DS ---
DS: Providers Provider Date of Service: 04/09/22 Date of admission: 04/07/22 23:34 Primary care physician: Steve Sanchez MD Consults: 04/07/22 23:34 Consult to Neurology Routine Consulting Provider: [facility] Reason for consultation: CVA DS: Diagnosis Discharge Diagnosis (1) Cerebellar infarction: Status: Acute DS: Summary Hospital Course Hospital Course: Chief Complaint: Dizziness, balance problems This is a an 86-year-old male with past medical history of laryngeal cancer status post laryngectomy, HTN, hypothyroidism, BPH, hearing loss presents to the hospital with 9 day history of dizziness and balance problem.? Patient reports that about 9 days ago he was working in the [employer], did heavy [employer] work, few hours later walked into the house and had a near-syncopal episode but did not pass out.? He had difficulty standing on his feet, felt significantly dizzy with significant vertigo, and felt like he was passing out and was yelling at his stating that he feels that he was going to .? Patient denies any chest pain, felt weak in the legs but no particular numbness or tingling, he reports that he called EMS and they brought him to the hospital but feels that he might have passed out on his way to the hospital cousin next thing he remembers from being home was waking up in the hospital.? He reports that ever since then he continued to have significant weakness, difficulty with ambulating due to balance problems, his reports that he had difficulty standing straight, leaning to 1 side constantly, had to use walker to avoid falling and has developed 9 notice and his right hand.? Patient otherwise denies any headache, no change in vision, no abdominal pain nausea or vomiting, no diarrhea constipation, no urinary symptoms and no lower extremity edema.? No weakness in the legs or arms.? Just very difficult with keeping his balance. Due to the balance problems he went to visit his primary care physician today who did an MRI that found areas of low attenuation in the right cerebellar hemisphere corresponding to foci of acute and subacute infarcts on the MRI scan.? There is also sequelae of chronic infarcts in the left cerebellar hemisphere.? Therefore patient was called and sent to the ED On arrival to the ED patient hemodynamically stable with no significant abnormal vitals Labs significant for WBC count of 5.9, labs otherwise unremarkable CT angiogram of head and neck showed right external carotid artery does not opacify distal to its origin, the common and internal carotid artery disease are patent without evidence of flow-limiting stenosis, the right vertebral artery does not demonstrate flow from its origin through the upper cervical region, the left vertebral artery arises off the posterior arch of the aorta which is a normal variant. Patient will be admitted for further management: Hospital course:Patient suffered acute cerebella stroke as demonstrated on . MRI: ?Multiple foci of reduced diffusivity involving the right greater than left cerebellum exhibiting intermediate signal on the ADC map suggesting subacute infarcts. Initial CT of head showed no acute finding, following MRI had CTA of head and neck with no domonstrable lesion that neeeds intervention but findings as detail in imaging. Patien't main issues were ataxia and dizzines and PT and OT have worked with him with marked improvement, initially PT thought he need acute rehab but he has improved much and so now will going with home services. He will be discharge with ASA, Lipitor, blood pressure is good. Neurology saw him and is recommending cardiac work up for source of embolism, he's had echo and Time Spent with Patient Time attestation: Total time spent providing and/or coordinating discharge services: Discharge coordination time: Greater than 30 minutes Quality: Safe Use of Opioids Does Pt have an Active Cancer Diagnosis on the Problem List?: No Quality: Stroke Does the patient have a stroke diagnosis?: No Physical Exam Vital Signs: Vital Signs: Last Vital Signs Temp 97.2 F 04/09/22 08:37 Pulse 75 04/09/22 08:37 Resp 18 04/09/22 08:37 BP 123/59 L 04/09/22 08:37 Pulse Ox 97 04/09/22 08:37 O2 Del Method 04/09/22 08:37 BMI result Body Mass Index 21.2 Discharge Plan Discharge Anticipated Discharge Date/Time: 04/09/22 10:09 Patient Disposition: Home Health Service Discharge Diagnosis: Acute cerebellar stroke Referrals: Po,Steve Yadav MD [Primary Care Provider] - 1 Week Discharge Medications: New aspirin 81 mg Tablet,Delayed Release (Dr/Ec) 81 mg PO DAILY Qty: 60 0RF Rx Instructions: offer over the counter first atorvastatin [Lipitor] 20 mg tablet 20 mg PO BEDTIME Qty: 30 0RF Continued tamsulosin 0.4 mg capsule 0.4 mg PO DAILY Qty: 90 3RF hydrochlorothiazide 12.5 mg tablet 12.5 mg PO QAM Qty: 90 3RF levothyroxine 75 mcg tablet 75 mcg PO BEDTIME multivitamin Tablet 1 tab PO DAILY calcium carbonate-vitamin D3 [Calcium 600 with Vitamin D3] 600 mg(1,500mg) -500 unit capsule 2 cap PO DAILY Discharge Orders: Discharge Order (Routine); Ordered 04/09/22 Ordered By: Harshal Araiza Diet: Advance to usual diet Activity on Discharge: As tolerated Stand Alone Forms: Patient Portal Discharge page Care Plan Goals: full recovery from stroke Health Concerns: stroke Plan of Treatment: physical occupational therapy at home take baby aspirin daily, take Lipitor as directed, follow-up with your Dr. Assessment: as above
[2022-04-09] MEDS: Calcium + Vitamin D 250 MG TABLET 500 MG PO (10:59)
[2022-04-09] MEDS: Atorvastatin Calcium 80 MG TABLET PO (11:00)
[2022-04-09] MEDS: Multivitamin TABLET 1 TAB PO (11:00)
[2022-04-09] MEDS: Tamsulosin HCL 0.4 MG CAPSULE PO (11:00)
[2022-04-09] MEDS: Aspirin Enteric Coated 81 MG TABLET.DR PO (11:00)
--- NOTE | 2022-04-09 13:05 | P.F2F_ITS ---
Service Date Service Date: 04/09/22 Encounter Date of encounter: 04/09/22 Reasons for Services Signs and symptoms assessed: Ataxia from stroke Homebound: Leaving the home is medically contraindicated at this time without the asist of a device and/or another person due th the listed conditions above and below. Reason homebound: poor balance / fall risk Homebound supporting statement: Homebound due to acute cerebellar stroke causing ataxia Certification: Based on the above findings, I certify that this patient is confined to the home and needs intermittent jail care, physical therapy and/or speech therapy, or continues to need occupational therapy. The patient is under my care, and I have initiated the establishment of the plan of care. The patient will be followed by a physician who will periodically review the plan of care.
--- NOTE | 2022-04-09 13:42 | MHC.CM.PN ---
PT CLEARED BY PT TO GO HOME WITH SERVICES TODAY PT WILL DC WITH [facility] FOR PT TO TRANSPORT
== END 2022-04-09 14:50 | disposition home health service (06) | DRG 66 ==
LOC: HO.ED 21:00 → HO.EDOVER 23:44
PROVIDERS: Physician Assistant; Admitting Provider Internal Medicine; Emergency Provider Emergency Medicine Emergency Medical Services; PCP Internal Medicine; Visit Provider Internal Medicine
DX: I63.211 Cerebral infarction due to unspecified occlusion or stenosis of right vertebral artery (principal); N40.0 Benign prostatic hyperplasia without lower urinary tract symptoms; R27.0 Ataxia, unspecified; Z20.822 Contact with and (suspected) exposure to COVID-19; Z96.653 Presence of artificial knee joint, bilateral; Z85.21 Personal history of malignant neoplasm of larynx; Z86.010 Personal history of colon polyps; Z79.82 Long term (current) use of aspirin; Z79.890 Hormone replacement therapy; Z79.899 Other long term (current) drug therapy; E03.9 Hypothyroidism, unspecified
CPT/HCPCS: 36415; 70496; 70498; 70551; 80048; 80061; 80076; 81003; 83735; 84484; 85025; 85610; 85730; 87502; 87635; 93005; 93306; 97116; 97162; 97165; 97530; 99284; 99285; J1650; Q9967

== ENCOUNTER → 2022-04-13 10:51 | Outpatient (BNVA) | payer MEDICARE, SELFPAY | PROVIDERS: PCP Internal Medicine; Referring Provider Internal Medicine; Visit Provider Internal Medicine Cardiovascular Disease | DX: I35.0 Nonrheumatic aortic (valve) stenosis (principal); Z86.73 Personal history of transient ischemic attack (TIA), and cerebral infarction without residual deficits; Z79.82 Long term (current) use of aspirin; Z79.899 Other long term (current) drug therapy | CPT/HCPCS: 99202 ==

== ENCOUNTER → 2022-04-23 10:56 | Outpatient (REF) | payer MEDICARE, SELFPAY ==
--- NOTE | 2022-04-23 11:00 | HM_ITS ---
TEST PERFORMED: Cardiac event monitoring. REQUESTING PHYSICIAN: Dr. Amador. ENROLLMENT PERIOD: 04/23/2022 to 05/23/2022, 30 days. FINDINGS: In the above monitoring period, underlying rhythm is sinus. Rates ranged from 75 to 95 beats per minute. No documented arrhythmias. No other abnormal findings. CONCLUSION: Essentially unremarkable. 30-day monitoring showing sinus rhythm only. No cardiac arrhythmias documented. Tashi Hanna MD HS/JARET / [id number]
== END ==
LOC: HO.CARD 10:56
PROVIDERS: Visit Provider Internal Medicine Cardiovascular Disease
DX: Z86.73 Personal history of transient ischemic attack (TIA), and cerebral infarction without residual deficits (principal)
CPT/HCPCS: 93270

== ENCOUNTER 2022-08-03 10:28 | Outpatient (REF) | payer MEDICARE, SELFPAY ==
[2022-08-03 11:36] LABS: Estimated Average Glucose 108 mg/dL; Hemoglobin A1c % 5.4 %
[2022-08-03 12:18] LABS: Alanine Aminotransferase 28 U/L (0-40); Albumin Level 3.8 g/dL (3.5-5.0); Alkaline Phosphatase 114 U/L (39-117); Anion Gap 12 (12-20); Aspartate Amino Transferase 26 U/L (5-37); Blood Urea Nitrogen 22 mg/dL (9-16); Calcium 8.8 mg/dL (8.4-10.2); Carbon Dioxide 26 mmol/L (22-29); Chloride 108 mmol/L (96-108); Cholesterol 118 mg/dL; Estimated Glomerular Filt Rate > 60; Glucose Random 97 mg/dL (60-115); HDL Cholesterol 60 mg/dL; LDL Cholesterol Calculated 47 mg/dl; Sodium 142 mmol/L (135-145); Total Protein 6.1 g/dL (6.5-8.0); Triglycerides 58 mg/dL
== END 2022-08-03 10:29 | disposition home or self-care (01) ==
LOC: HO.LAB 10:28
PROVIDERS: PCP Internal Medicine; Visit Provider Internal Medicine
DX: E78.00 Pure hypercholesterolemia, unspecified (principal); R73.02 Impaired glucose tolerance (oral)
CPT/HCPCS: 36415; 80053; 80061; 83036

== ENCOUNTER → 2023-04-14 12:42 | Outpatient (REF) | payer MEDICARE, SELFPAY | LOC: HO.CARD 12:42 | PROVIDERS: PCP Internal Medicine; Visit Provider Internal Medicine Cardiovascular Disease | DX: I35.0 Nonrheumatic aortic (valve) stenosis (principal) | CPT/HCPCS: 93306 ==

== ENCOUNTER 2023-05-10 12:28 | Outpatient (AMB) | payer MEDICARE, SELFPAY ==
--- NOTE | 2023-05-10 12:32 | A.OFFVIS_ITS ---
Intake Vital Signs 05/10/23 12:33 Height 5 ft 8 in Weight 140 lb 10.479 oz BMI 21.4 BP 116/70 Blood Pressure Location Lt brachial Position Sitting Pulse 67 Pulse Source Monitor Intake Visit Reasons: 1 year follow up Intake Note: 1 year follow up with EKG, no new complaints. Contact Lens Polisher Required: No Accompanied by: Spouse Allergies No Known Allergies Allergy (Verified 05/10/23 12:36) Medication List - Last Reconciled 05/10/23 by Meet Amador MD aspirin 81 mg PO DAILY atorvastatin 40 mg PO BEDTIME calcium carbonate-vitamin D3 600 mg-12.5 mcg (500 unit) (Calcium 600 with Vitamin D3) 2 caps PO DAILY hydrochlorothiazide 12.5 mg PO QAM levothyroxine 75 mcg PO BEDTIME multivitamin 1 tab PO DAILY tamsulosin 0.4 mg PO DAILY HPI HPI Comments History of Present Illness Details Nathan comes for follow-up. He has been doing well from cardiac perspective. He says he walked 5 miles yesterday and 2.5 miles today without any restriction. Denies any exertional chest pain or shortness of breath. Questions about aortic stenosis, we had discussed this in the past. He has not had any recurrent stroke-like symptoms although notices that he still has weakness in his left lower extremity and after walking certain distance he does drag is left foot. He also has numbness in his right upper extremity. He takes all his medications. His LDL is well optimized. [facility] Medical History BPH (benign prostatic hyperplasia) History of laryngeal cancer Hypertension Hypothyroid Impaired glucose tolerance Tubular adenoma of colon Vocal cord papilloma virus Surgical History History of cataract surgery History of left knee replacement History of total right knee replacement Family History Father No problems noted. Mother No problems noted. Social History Housing: House Alcohol intake: current Alcohol intake frequency: does not drink Patient Tobacco Use Status: Never used Tobacco e-Cigarette/Vaping Use: Never Used Second Hand Smoke Exposure: No Current occupational status: retired Cognitive needs: No Hearing needs: No Vision needs: Yes Review of Systems Const Denies weakness ENT Denies dizziness Card Denies chest pain, Denies chest pain with activity, Denies syncope, Denies rapid heart rate, Denies pedal edema, Denies edema, Denies leg edema, Denies lightheadedness, Denies palpitations, Denies dyspnea, Denies dyspnea on exertion and Denies orthopnea Resp Denies cough, Denies dyspnea and Denies dyspnea on exertion GI Denies hematochezia and Denies change in stool character Musc Denies abnormal gait, Denies muscle cramps, Denies muscle weakness, Denies numbness, Denies radiating pain into limb and Denies tingling Neuro Denies abnormal gait, Denies dizziness, Denies syncope, Denies numbness, Denies tingling and Denies weakness Endo Denies palpitations Physical Exam Vital Signs: Last Vital Signs Pulse 67 05/10/23 12:33 BP 116/70 05/10/23 12:33 BMI result Body Mass Index 21.4 Const General: cooperative, comfortable, no acute distress and alert Nutritional Appearance: thin Orientation/consciousness: patient oriented x3 Limitations: ambulation with walker HEENT Head: Yes normocephalic and Yes atraumatic Neck Neck: Yes trachea midline, Yes supple and Yes no JVD Chest Chest palpation & inspection: normal inspection of the chest Resp Effort & Inspection: normal respiratory effort Auscultation: clear to auscultation bilaterally Cardio Jugular venous distension: no JVD Palpation: normal PMI Rate: regular rate Rhythm: regular rhythm Heart sounds: S1 normal heart sound present, S2 normal heart sound present, no click, no gallops and Murmur heart sound present systolic early, decrescendo, crescendo and II/ GI Auscultation: normal bowel sounds Skin General skin exam: no rashes or lesions noted Neuro General: patient oriented x3 and no focal motor deficits Extrem General: Yes no clubbing, cyanosis or edema Psych Appearance: grossly normal Office Procedures EKG Details: EKG shows normal sinus rhythm with normal EKG [id number], Complete Assessment & Plan Assessment & Plan (1) Cerebellar infarction: Comment: Right cerebellar infarction March 2022 Code(s): I63.9 - Cerebral infarction, unspecified Plan: Patient with multiple embolic event to both hemispheres as well as the cerebellum. Still having mild residual effects but is extremely active. Discussed importance of medical therapy. He should be on lifelong aspirin and high-intensity statin therapy with LDL is well optimized. Discussed with him the need for medications. He shows understanding. Continue to maintain exercise activity. Continue aggressive blood pressure control which is currently well optimized. (2) Aortic stenosis: Comment: March 2022 1.87 sq cm mild Code(s): I35.0 - Nonrheumatic aortic (valve) stenosis Plan: Aortic stenosis which remains mild. Need to continue to monitor clinically every year and repeat echocardiogram in 2 years time. No surgical interventions required at this point time. Cardinal symptoms of aortic stenosis were discussed. Continue aggressive vascular risk factor modification as above. Will follow up in the clinic in 1 year's time, sooner p.r.n.. Thank you for allowing me to partake in his care Coding Level of Care Code Est Pt Level 4 (72875) Diagnoses Cerebellar infarction I63.9 Aortic stenosis I35.0 CPT Codes EKG - CPT: [id number], Complete ([id number])
[2023-05-10 12:33] VITALS: BP 116/70; PULSE 67; BMI 21.4
== END 2023-05-10 12:53 | disposition home or self-care (01) ==
PROVIDERS: Visit Provider Internal Medicine Cardiovascular Disease
DX: I63.9 Cerebral infarction, unspecified (principal); I35.0 Nonrheumatic aortic (valve) stenosis
CPT/HCPCS: 93010; 99214

== ENCOUNTER → 2023-05-10 12:28 | Outpatient (BNVA) | payer MEDICARE, SELFPAY | PROVIDERS: Visit Provider Internal Medicine Cardiovascular Disease | DX: I63.9 Cerebral infarction, unspecified (principal); I35.0 Nonrheumatic aortic (valve) stenosis | CPT/HCPCS: 93005; 99212 ==

== ENCOUNTER 2023-07-18 14:02 | Outpatient (REF) | payer MEDICARE, SELFPAY | END 2023-07-18 14:03 | disposition home or self-care (01) | LOC: HO.LAB 14:02 | PROVIDERS: PCP Internal Medicine; Visit Provider Internal Medicine | DX: E78.00 Pure hypercholesterolemia, unspecified (principal); E03.9 Hypothyroidism, unspecified; R73.02 Impaired glucose tolerance (oral); D64.9 Anemia, unspecified | CPT/HCPCS: 36415; 80053; 80061; 82607; 82728; 82746; 83036; 83540; 84439; 84443; 85025; 85045 ==

== ENCOUNTER 2023-07-20 10:47 | Outpatient (AMB) | payer MEDICARE, SELFPAY ==
[2023-07-20 11:02] VITALS: BP 116/68; PULSE 70; O2SAT 97; BMI 21.7
--- NOTE | 2023-07-20 11:02 | MHC.PC.OV ---
Vital Signs 07/20/23 11:02 Height 5 ft 8 in Weight 143 lb BMI 21.7 BP 116/68 Blood Pressure Location Lt brachial Position Sitting Pulse 70 Pulse Source Pulse Oximeter Pulse Oximetry (%) 97 Oxygen Delivery Method Room Air Intake Visit Reasons: hx of CVA, mild , Cholesterol , hypothryoid Allergies No Known Allergies Allergy (Verified 07/20/23 11:02) Medication List - Last Reconciled 07/20/23 by Steve Sanchez MD aspirin 81 mg PO DAILY atorvastatin 40 mg PO BEDTIME calcium carbonate-vitamin D3 600 mg-12.5 mcg (500 unit) (Calcium 600 with Vitamin D3) 2 caps PO DAILY hydrochlorothiazide 12.5 mg PO QAM levothyroxine 75 mcg PO BEDTIME multivitamin 1 tab PO DAILY tamsulosin 0.4 mg PO DAILY Tobacco use date assessed: 03/03/23 Fall risk assessment: No Falls in past year Last assessed Fall Risk: 07/20/23 Dental Screening Dental Screen Date: 07/20/23 Did you have a dental visit in the last 12 months?: Yes Did you have a dental problem in the last 6 months where you did not have access to dental care?: No Was dental information given to patient?: Patient has dentist HPI hx of CVA, mild , Cholesterol , hypothryoid HPI Details 87-year-old male with a history of CVA, laryngeal cancer impaired glucose tolerance BPH hypothyroidism hypertension aortic stenosis hypercholesterolemia last seen in February 2023. Patient is here for follow-up. Patient has been follow-up with cardiology May 1.87 cm squared mild repeat echo in 2 years echocardiogram done April 2023he left ventricular systolic function is normal. The calculated ejection fraction is 59% by biplane method. - There is mild aortic valve stenosis. There is mild aortic valve regurgitation. 1.5 PAtient is getting irritable now and is concernn about this . but patient is hesitant [facility] Medical History BPH (benign prostatic hyperplasia) History of laryngeal cancer Hypertension Hypothyroid Impaired glucose tolerance Tubular adenoma of colon Vocal cord papilloma virus Surgical History History of cataract surgery History of left knee replacement History of total right knee replacement Family History (Updated 07/20/23 @ 11:02 by Verito Wright CMA) Father No problems noted. Mother No problems noted. Social History Housing: House Alcohol intake: current Alcohol intake frequency: does not drink Patient Tobacco Use Status: Never used Tobacco e-Cigarette/Vaping Use: Never Used Second Hand Smoke Exposure: No Current occupational status: retired Cognitive needs: No Hearing needs: No Vision needs: Yes Questionnaire PHQ-9 Over the last 2 weeks, how often have you been bothered by any of the following problems? 1. Little interest or pleasure in doing things: not at all 2. Feeling down, depressed, or hopeless: not at all 3. Trouble falling or staying asleep, or sleeping too much: not at all 4. Feeling tired or having little energy: not at all 5. Poor appetite or overeating: not at all 6. Feeling bad about yourself - or that you are a failure or have let yourself or your family down: not at all 7. Trouble concentrating on things, such as reading the newspaper or watching television: not at all 8. Moving or speaking so slowly that other people could have noticed. Or the opposite - being so fidgety or restless that you have been moving around a lot more than usual: not at all 9. Thoughts that you would be better off or of hurting yourself in some way: not at all Total score: 0 Depression Screening Interpretation: Negative Depression Screening Done: Yes Source: Developed by Drs. Lars Acosta, Eren Shay and colleagues, with an educational rodolfo from [employer]. Thrive Questionnaire Date Thrive assessed: 03/03/23 AUDIT C Alcohol Use Questionnaire (AUDIT-C) 1. How often do you have a drink containing alcohol?: 2-4 times a month 2. How many drinks containing alcohol do you have on a typical day when you are drinking?: 1 or 2 3. How often do you have six or more drinks on one occasion?: Never Total Score: 2 RIMMA-7 AMB Questionnaire RIMMA-7 Date RIMMA - 7 assessed: 03/03/23 Source: Developed by Drs. Lars Acosta, Ana Fried, Eren Kaba and colleagues, with an educational rodolfo from [employer]. Physical exam (Primary Care) Vital Signs: Last Vital Signs Pulse 70 07/20/23 11:02 BP 116/68 07/20/23 11:02 Pulse Ox 97 07/20/23 11:02 Oxygen Delivery Method Room Air 07/20/23 11:02 BMI result Body Mass Index 21.7 Tobacco/Smoking Status: Tobacco use Status Tobacco use date assessed 03/03/23 07/20/23 11:03 Patient Tobacco Use Status Never used Tobacco 07/20/23 11:03 e-Cigarette/Vaping Use Never Used 07/20/23 11:03 PHQ-9: PHQ-9 Score PHQ-9: Total score 0 07/20/23 11:28 Depression Screening Interpretation: Negative Thrive Assessment: Date of Thrive Assessment Date Thrive assessed 03/03/23 07/20/23 11:03 Assessment and Plan Assessment & Plan (1) Cerebellar infarction: Comment: Right cerebellar infarction March 2022 Code(s): I63.9 - Cerebral infarction, unspecified Plan: Control the cholesterol, weight, blood pressure (2) Aortic stenosis: Comment: March 2022 1.87 sq cm mild 04/2023 1.5 cm Code(s): I35.0 - Nonrheumatic aortic (valve) stenosis Plan: Continuing to monitor (3) Hypercholesterolemia: Code(s): E78.00 - Pure hypercholesterolemia, unspecified Plan: Avoid fried foods, chicken skin, eggs, butter margarine, pastries and meat. Be it pork or beef they have a lot of cholesterol LDL goal of less than with 100 and triglyceride of less than 150 (4) History of laryngeal cancer: Comment: Laser laryngectomy, Reconstruction June [address] Dr. Michelle MARTINEZ, Code(s): Z85.21 - Personal history of malignant neoplasm of larynx (5) Impaired glucose tolerance: Code(s): R73.02 - Impaired glucose tolerance (oral) Plan: Decrease the amount of carbohydrate intake, pasta, bread, rice and potatoes are all sugar and that is aside from all the sweet stuff, remember that fruits are good but they are Sweet also. (6) BPH (benign prostatic hyperplasia): Code(s): N40.0 - Benign prostatic hyperplasia without lower urinary tract symptoms Qualifiers: Lower urinary tract symptom presence: symptoms present Lower urinary tract symptom detail: urinary frequency Qualified Code(s): N40.1 - Benign prostatic hyperplasia with lower urinary tract symptoms; R35.0 - Frequency of micturition Plan: Continue with tamsulosin (7) Hypothyroid: Code(s): E03.9 - Hypothyroidism, unspecified Qualifiers: Hypothyroidism type: acquired Qualified Code(s): E03.9 - Hypothyroidism, unspecified Plan: Continue with thyroid medication (8) Hypertension: Code(s): I10 - Essential (primary) hypertension Qualifiers: Hypertension type: essential hypertension Qualified Code(s): I10 - Essential (primary) hypertension Plan: Continue with blood pressure medication. Decrease salt intake and exercise continue with hydrochlorothiazide only. Medications: Refilled tamsulosin 0.4 mg PO DAILY 90 caps 3RF hydrochlorothiazide 12.5 mg PO QAM 90 tabs 3RF Coding Level of Care Code Est Pt Level 4 (70706) Diagnoses Cerebellar infarction I63.9 Aortic stenosis I35.0 Hypercholesterolemia E78.00 History of laryngeal cancer Z85.21 Impaired glucose tolerance R73.02 Benign prostatic hyperplasia with urinary frequency N40.1; R35.0 Lower urinary tract symptom presence: symptoms present Lower urinary tract symptom detail: urinary frequency Acquired hypothyroidism E03.9 Hypothyroidism type: acquired Essential hypertension I10 Hypertension type: essential hypertension
== END 2023-07-20 12:57 | disposition home or self-care (01) ==
PROVIDERS: Visit Provider Internal Medicine
DX: Z23 Encounter for immunization (principal); I35.0 Nonrheumatic aortic (valve) stenosis; Z86.73 Personal history of transient ischemic attack (TIA), and cerebral infarction without residual deficits; Z85.21 Personal history of malignant neoplasm of larynx; R73.02 Impaired glucose tolerance (oral); N40.1 Benign prostatic hyperplasia with lower urinary tract symptoms; R35.0 Frequency of micturition; E03.9 Hypothyroidism, unspecified; I10 Essential (primary) hypertension
CPT/HCPCS: 90471; 90686; 99214

== ENCOUNTER 2024-05-10 13:18 | Outpatient (AMB) | payer MEDICARE, SELFPAY ==
[2024-05-10 13:28] VITALS: BP 120/66; PULSE 68; BMI 20.4
--- NOTE | 2024-05-10 13:28 | MHC.OFFVIS ---
Vital Signs 05/10/24 13:28 Height 5 ft 8 in Weight 134 lb 7.712 oz BMI 20.4 BP 120/66 Blood Pressure Location Lt brachial Position Sitting Pulse 68 Intake Visit Reasons: 1 yr f/up Intake Note: 1 year follow-up with ekg feeling ok [employer] De Cuisine Required: No Allergies No Known Allergies Allergy (Verified 07/20/23 11:02) Medication List - Last Reconciled 05/10/24 by Meet Amador MD aspirin 81 mg PO DAILY atorvastatin 40 mg PO BEDTIME calcium carbonate-vitamin D3 600 mg-12.5 mcg (500 unit) (Calcium 600 with Vitamin D3) 2 caps PO DAILY hydrochlorothiazide 12.5 mg PO QAM levothyroxine 75 mcg PO BEDTIME multivitamin 1 tab PO DAILY tamsulosin 0.4 mg PO DAILY HPI Comments Details: Nathan comes for follow-up. Patient continues to remain very active. Denies any exertional chest pain or shortness of breath. Overall taking his medications. Taking low-dose aspirin therapy. No new neurologic events. No heart failure symptoms. No lightheadedness, syncope. No prolonged palpitation irregular heartbeat. Blood pressures been well controlled. 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 Mother No problems noted. Social History Housing: House Alcohol intake: current Alcohol intake frequency: does not drink Patient Tobacco Use Status: Never used Tobacco e-Cigarette/Vaping Use: Never Used Second Hand Smoke Exposure: No Current occupational status: retired Cognitive needs: No Hearing needs: No Vision needs: Yes Review of Systems Const Denies chills, Denies fatigue, Denies fever(s), Denies frequent falls, Denies weakness, Denies weight gain and Denies weight loss ENT Denies dizziness Card Denies chest pain, Denies leg edema, Denies lightheadedness, Denies palpitations, Denies dyspnea, Denies dyspnea on exertion, Denies orthopnea and Denies other (loss of consciousness) Resp Denies cough, Denies dyspnea and Denies dyspnea on exertion GI Denies hematochezia and Denies change in stool character Musc Denies abnormal gait, Denies muscle weakness, Denies numbness, Denies radiating pain into limb and Denies tingling Neuro Denies abnormal gait, Denies dizziness, Denies frequent falls, Denies numbness, Denies tingling and Denies weakness Endo Denies fatigue and Denies palpitations Physical Exam Vital Signs: Last Vital Signs Pulse 68 05/10/24 13:28 BP 120/66 05/10/24 13:28 BMI result Body Mass Index 20.4 Const General: cooperative, comfortable, no acute distress and alert Nutritional Appearance: thin Orientation/consciousness: patient oriented x3 Limitations: ambulation with walker HEENT Head: Yes normocephalic and Yes atraumatic Neck Neck: Yes trachea midline, Yes supple and Yes no JVD Chest Chest palpation & inspection: normal inspection of the chest Resp Effort & Inspection: normal respiratory effort Auscultation: clear to auscultation bilaterally Cardio Jugular venous distension: no JVD Palpation: normal PMI Rate: regular rate Rhythm: regular rhythm Heart sounds: S1 normal heart sound present, S2 normal heart sound present, no click, no gallops and Murmur heart sound present systolic early, decrescendo, crescendo and II/ GI Auscultation: normal bowel sounds Skin General skin exam: no rashes or lesions noted Neuro General: patient oriented x3 and no focal motor deficits Extrem General: Yes no clubbing, cyanosis or edema Psych Appearance: grossly normal Office Procedures EKG Details: EKG shows normal sinus rhythm nonspecific ST abnormality [id number], Complete Assessment & Plan Assessment & Plan (1) Aortic stenosis: Comment: March 2022 1.87 sq cm mild 04/2023 1.5 cm Code(s): I35.0 - Nonrheumatic aortic (valve) stenosis Category: Medical Plan: Aortic stenosis which clinically still appears to be mild. No current symptoms related to it. At this point time would suggest to continue aggressive medical therapy continue low-dose aspirin therapy. Continue aggressive blood pressure control which is currently well optimized importance of good blood pressure control was discussed. Statin therapy to target goal LDL less than 70 mg/dL. Follow-up echocardiogram near future. Pathophysiology of aortic stenosis and natural progression was discussed at this point time with mild aortic stenosis does not require any further intervention. 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 At this point time continue low-dose aspirin therapy. Continue aggressive blood pressure control. Continue high-intensity statin therapy with target goal LDL less than 70 mg/dL. Importance of compliance with medication was discussed. Will follow up in the clinic in 1 year's time unless he moves to [place]. Orders: Orders CA echo transthoracic complete Today I35.0 - Nonrheumatic aortic (valve) stenosis Coding Level of Care Code Est Pt Level 4 (99453) Diagnoses Aortic stenosis I35.0 Cerebellar infarction I63.9 CPT Codes EKG - CPT: 09344-[id number], Complete ([id number])
== END 2024-05-10 14:02 | disposition home or self-care (01) ==
PROVIDERS: PCP Internal Medicine; Visit Provider Internal Medicine Cardiovascular Disease
DX: I35.0 Nonrheumatic aortic (valve) stenosis (principal); I63.9 Cerebral infarction, unspecified
CPT/HCPCS: 93010; 99214

== ENCOUNTER → 2024-05-10 13:18 | Outpatient (BNVA) | payer MEDICARE, SELFPAY | PROVIDERS: PCP Internal Medicine; Visit Provider Internal Medicine Cardiovascular Disease | DX: I35.0 Nonrheumatic aortic (valve) stenosis (principal); I63.9 Cerebral infarction, unspecified | CPT/HCPCS: 93005; 99212 ==

== ENCOUNTER → 2024-06-15 13:54 | Outpatient (REF) | payer MEDICARE, SELFPAY ==
--- NOTE | 2024-06-15 13:59 | CA_ITS ---
Transthoracic Echocardiogram Patient (Last, First, Middle): Nathan Braswell R Gender: Male Date of : 1935 Age: 88 Procedure Date: 06/15/2024 Procedure Type: Transthoracic Echocardiogram Location: OP Height: 172.72 cm Weight: 63.5 kg BSA: 1.76 m2 Heart Rate: bpm BP: 108 / 70 mmHg Operations Administrative Assistant: TO Referring MD: Meet Amador MD Symptoms: I35.0 - Nonrheumatic aortic (valve) stenosis Study Quality: Adequate ECG Rhythm: Sinus Conclusions: - The left ventricular systolic function is normal. The calculated ejection fraction is 58% by biplane method. - There is moderate aortic valve stenosis. Findings Left Ventricle Normal left ventricular cavity size. The left ventricular systolic function is normal. The calculated ejection fraction is 58% by biplane method. There is no evidence of regional wall motion abnormalities. Evidence suggests grade I (mild) diastolic dysfunction. There is mild septal asymmetric hypertrophy. Right Ventricle Normal right ventricular cavity size and systolic function. Atria The left atrium is mildly dilated. The right atrium is normal in size. Aortic Valve There is moderate calcification of the aortic valve. There is moderate aortic valve stenosis. The peak aortic velocity is 2.65 m/s with a calculated peak gradient of 28 mmHg. The mean gradient is 18 mmHg. The aortic valve area is 1.19 cm2. There is trace (trivial) aortic valve regurgitation. Dimensionless index 0.31. Mitral Valve There is mild mitral annular calcification. There is trace mitral valve regurgitation. There is no mitral valve stenosis. Pulmonic Valve The pulmonic valve is likely normal. Tricuspid Valve There is mild tricuspid valve regurgitation. There is no evidence of pulmonary hypertension. Great Vessels The asc aorta is normal in size. Venous The inferior vena cava was not well visualized. Pericardium/Pleural There is no evidence of pericardial effusion. Prior Study Comparison Changes noted compared to prior study dated: 04/14/2023. slight progression of aortic valve stenosis. Measurements 2D Linear Measurements IVSd: 1.10 0.6-0.9/0.6-1.0 cm LVIDd: 4.15 3.9-5.3/4.2-5.9 cm LVIDd Index: 2.36 2.4-3.2/2.2-3.1 cm/m2 LVIDs: 2.80 2.0-3.6 cm LVPWd: 0.97 0.7-1.1 cm LA Diam: 3.20 2.7-3.8/3.0-4.0 cm LAIDs Index: 1.82 1.5-2.3 cm/m2 LV Mass: 175.45 67-162/88-224 g LV Mass Index: 99.69 43-95/49-115 g/m2 LVOT Diam: 2.30 3.0+(-)1.3 cm 2D Systolic Function EF 4C: 60.10 >55% EF 2C: 58.70 >55% EF BiP: 58.10 >55% Mitral Valve MV Pk E: 0.59 MV PK A: 0.62 MV Decel Time: 276.00 E/A: 1.00 E'Lateral: 6.53 E'Medial: 5.00 E/E' Med: 11.80 E/E' Lat: 9.10 PHT: 81.00 MVA PHT: 2.72 Decel Ada: 2.15 Aortic Valve AoV Pk Arnold: 2.65 AoV Mn Arnold: 2.05 AoV VTI: 0.71 AoV Pk Grad: 28.00 Aov Mn Grad: 18.00 PIYUSH Cont.VTI: 1.19 LVOT LVOT Pk Arnold: 0.81 LVOT Mn Arnold: 0.55 LVOT VTI: 0.20 LVOT Pk Grad: 3.00 LVOT Mn Grad: 1.00 LVOT Diam: 2.30 LVOT Area: 4.15 Diastolic Function MV Pk E: 0.59 MV Pk A: 0.62 E/A: 1.00 E'Medial: 5.00 E/E' Med: 11.80 E' Laterial: 6.53 E/E' Lat: 9.10 Right Ventricle TAPSE (mm): 18.80 TVS' Arnold: 9.79 Tricuspid Valve TR Pk Arnold: 1.80 TR Pk Grad: 13.00 Great Vessels Aorta Sinus of Valsalva: 4.10 2.0-3.5 cm Ao Asc: 3.70 2.1-3.4 cm Updated in Other Vendor System with Status of Final Tashi Hanna MD electronically signed on 06/17/2024 10:51:53 AM with status of Final
== END ==
LOC: HO.CARD 13:54
PROVIDERS: PCP Internal Medicine; Visit Provider Internal Medicine Cardiovascular Disease
DX: I35.0 Nonrheumatic aortic (valve) stenosis (principal)
CPT/HCPCS: 93306

== ENCOUNTER → 2024-06-15 13:59 | Outpatient (BNV) | payer MEDICARE, SELFPAY | PROVIDERS: PCP Internal Medicine; Visit Provider Internal Medicine | DX: I35.2 Nonrheumatic aortic (valve) stenosis with insufficiency (principal); I35.8 Other nonrheumatic aortic valve disorders; I34.81 Nonrheumatic mitral (valve) annulus calcification; I36.1 Nonrheumatic tricuspid (valve) insufficiency | CPT/HCPCS: 93306 ==

== ENCOUNTER 2024-06-15 15:13 | Outpatient (AMB) | payer MEDICARE, SELFPAY ==
[2024-06-15 15:27] VITALS: BP 100/60; PULSE 49; O2SAT 94; BMI 21.2
--- NOTE | 2024-06-15 15:27 | MHC.PC.OV ---
Vital Signs 06/15/24 15:27 Height 5 ft 8 in Weight 139 lb 8 oz BMI 21.2 BP 100/60 Blood Pressure Location Rt brachial Position Sitting Pulse 49 L Pulse Source Pulse Oximeter Pulse Oximetry (%) 94 Oxygen Delivery Method Room Air Intake Visit Reasons: Meds Follow Up Intake Note: Patient is here to follow up on medication. Application Packager Required: No Window Shade Installer: Present Accompanied by: Spouse Allergies No Known Allergies Allergy (Verified 06/15/24 15:28) Tobacco use date assessed: 06/15/24 Fall risk assessment: No Falls in past year Last assessed Fall Risk: 06/15/24 Dental Screening Dental Screen Date: 06/15/24 Did you have a dental visit in the last 12 months?: Yes Did you have a dental problem in the last 6 months where you did not have access to dental care?: No Was dental information given to patient?: Patient has dentist HPI Meds Follow Up HPI Details 88-year-old male with a history of CVA with cerebellar infarction aortic stenosis hypercholesterolemia has a history of laryngeal cancer impaired glucose tolerance hypothyroid BPH hypertension coming in for follow-up last seen in 07/29/2023. Review of the notes was seen by Cardiology earlier this month denying any exertional chest pains. Aortic stenosis remains to be mild at 1.5 cm 04/28/2023. Continue with low-dose aspirin aggressive blood pressure control statin therapy to get LDL goal below 70. 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 Mother No problems noted. Social History Housing: House Alcohol intake: current Alcohol intake frequency: does not drink Patient Tobacco Use Status: Never used Tobacco e-Cigarette/Vaping Use: Never Used Second Hand Smoke Exposure: No service: No Current occupational status: retired Cognitive needs: No Hearing needs: No Vision needs: Yes Questionnaire PHQ-9 Over the last 2 weeks, how often have you been bothered by any of the following problems? 1. Little interest or pleasure in doing things: not at all 2. Feeling down, depressed, or hopeless: not at all 3. Trouble falling or staying asleep, or sleeping too much: not at all 4. Feeling tired or having little energy: not at all 5. Poor appetite or overeating: not at all 6. Feeling bad about yourself - or that you are a failure or have let yourself or your family down: not at all 7. Trouble concentrating on things, such as reading the newspaper or watching television: not at all 8. Moving or speaking so slowly that other people could have noticed. Or the opposite - being so fidgety or restless that you have been moving around a lot more than usual: not at all 9. Thoughts that you would be better off or of hurting yourself in some way: not at all Total score: 0 Depression Screening Interpretation: Negative Depression Screening Done: Yes Source: Developed by Drs. Lars Acosta, Ana Freid, Eren Kaba and colleagues, with an educational rodolfo from [employer] Thrive Questionnaire Date Thrive assessed: 06/15/24 I am a: Patient What is your living situation today?: I have a steady place to live Within the past 12 months, did the food you bought not last and you didn't have the money to get more?: Never true Within the past 12 months, did you worry whether your food would run out before you got money to buy more?: Never true Do you have trouble paying for medicines?: No Do you have trouble getting transportation to medical appointments?: No Do you have trouble paying your heating and electricity bill?: No Do you have trouble taking care of your child, family member or friend?: No Do you have trouble with day-to-day activities such as bathing, preparing meals, shopping, managing finances, etc.?: No Are you currently unemployed and looking for a job?: No Are you interested in more education?: No Currently or been in a relationship where the following occur: No concerns reported THRIVE Score: 0 AUDIT C Alcohol Use Questionnaire (AUDIT-C) 1. How often do you have a drink containing alcohol?: Never Total Score: 0 RIMMA-7 AMB Questionnaire RIMMA-7 Date RIMMA - 7 assessed: 06/15/24 Feeling nervous, anxious, or on edge: 0 = Not at all Not being able to stop or control worryin = Not at all Worrying too much about different things: 0 = Not at all Trouble relaxin = Not at all Being so restless that it is hard to sit still: 0 = Not at all Becoming easily annoyed or irritable: 0 = Not at all Feeling afraid as if something awful might happen: 0 = Not at all Total RIMMA-7 score (0-4 normal; 5-9 mild; 10-14 moderate; 15-21 severe): 0 Source: Developed by Drs. Lars Acosta, Ana Fried, Eren Kaba and colleagues, with an educational rodolfo from [employer] Physical exam (Primary Care) Vital Signs: Last Vital Signs Pulse 49 L 06/15/24 15:27 BP 100/60 06/15/24 15:27 Pulse Ox 94 06/15/24 15:27 Oxygen Delivery Method Room Air 06/15/24 15:27 BMI result Body Mass Index 21.2 Tobacco/Smoking Status: Tobacco use Status Tobacco use date assessed 06/15/24 06/15/24 15:37 Patient Tobacco Use Status Never used Tobacco 06/15/24 15:28 e-Cigarette/Vaping Use Never Used 06/15/24 15:28 PHQ-9: PHQ-9 Score PHQ-9: Total score 0 06/15/24 15:37 Depression Screening Interpretation: Negative Thrive Assessment: Date of Thrive Assessment Date Thrive assessed 06/15/24 06/15/24 15:37 Currently or been in a relationship where the following occur: No concerns reported Const General: alert; No acute distress Eyes Conjunctivae: conjunctivae normal Resp Auscultation: clear to auscultation bilaterally Cardio Rate: regular rate Rhythm: regular rhythm GI Inspection: Yes normal to inspection Extrem General: Yes normal to inspection and No edema Assessment and Plan Assessment & Plan (1) Aortic stenosis: Comment: March 2022 1.87 sq cm mild 04/2023 1.5 cm Code(s): I35.0 - Nonrheumatic aortic (valve) stenosis Plan: Continuing to monitor. 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 Control the cholesterol, weight, blood pressure (3) Impaired glucose tolerance: Code(s): R73.02 - Impaired glucose tolerance (oral) Plan: Decrease the amount of carbohydrate intake, pasta, bread, rice and potatoes are all sugar and that is aside from all the sweet stuff, remember that fruits are good but they are Sweet also. (4) Hypothyroid: Code(s): E03.9 - Hypothyroidism, unspecified Qualifiers: Hypothyroidism type: acquired Qualified Code(s): E03.9 - Hypothyroidism, unspecified Plan: Continue with thyroid medication retest blood work (5) Hypertension: Code(s): I10 - Essential (primary) hypertension Qualifiers: Hypertension type: essential hypertension Qualified Code(s): I10 - Essential (primary) hypertension Plan: Continue with blood pressure medication. Decrease salt intake and exercise on hydrochlorothiazide (6) Hypercholesterolemia: Code(s): E78.00 - Pure hypercholesterolemia, unspecified Plan: Avoid fried foods, chicken skin, eggs, butter margarine, pastries and meat. Be it pork or beef they have a lot of cholesterol LDL goal of less than 70 and triglyceride of less than 150. On atorvastatin 40 mg once a Orders: Orders Complete Blood Count Auto Diff Today R73.02 - Impaired glucose tolerance (oral) Thyroid Stimulating Hormone Today R73.02 - Impaired glucose tolerance (oral) IRON PROFILE Today R73.02 - Impaired glucose tolerance (oral) Reticulocyte Count Today R73.02 - Impaired glucose tolerance (oral) Hemoglobin A1c Today R73.02 - Impaired glucose tolerance (oral) Comprehensive Met. Panel Today R73.02 - Impaired glucose tolerance (oral) Lipid Panel Today E78.00 - Pure hypercholesterolemia, unspecified, R73.02 - Impaired glucose tolerance (oral) Vitamin B12 and Folate Today R73.02 - Impaired glucose tolerance (oral) Free T4 (Free Thyroxine) Today R73.02 - Impaired glucose tolerance (oral) Ferritin Today R73.02 - Impaired glucose tolerance (oral) Coding Level of Care Code Est Pt Level 4 (72873) Diagnoses Aortic stenosis I35.0 Cerebellar infarction I63.9 Impaired glucose tolerance R73.02 Acquired hypothyroidism E03.9 Hypothyroidism type: acquired Essential hypertension I10 Hypertension type: essential hypertension Hypercholesterolemia E78.00
== END 2024-06-15 16:59 | disposition home or self-care (01) ==
PROVIDERS: PCP Internal Medicine; Visit Provider Internal Medicine
DX: I35.0 Nonrheumatic aortic (valve) stenosis (principal); Z86.73 Personal history of transient ischemic attack (TIA), and cerebral infarction without residual deficits; R73.02 Impaired glucose tolerance (oral); E03.9 Hypothyroidism, unspecified; I10 Essential (primary) hypertension; E78.00 Pure hypercholesterolemia, unspecified
CPT/HCPCS: 99214

== ENCOUNTER 2024-07-20 11:13 | Outpatient (REF) | payer MEDICARE, SELFPAY ==
[2024-07-20 11:42] LABS: MANUAL DIFF FLAG NO
[2024-07-20 12:09] LABS: Basophils Percent Auto 0.7 % (0-2); Eosinophils Absolute Auto 0.2 X10*3/uL (0.0-0.4); Eosinophils Percent Auto 4.8 % (0-4); Hematocrit 41.3 % (42.0-52.0); Hemoglobin 13.9 g/dl (14.0-18.0); Imm Gran Abs Auto 0.02 X10*3/uL (0.00-0.03); Imm Gran Pct Auto 0.5 % (0.0-0.4); Immature Retic Fraction 6.5 % (2.3-13.4); Lymphocytes Absolute Auto 0.9 X10*3/uL (1.2-4.9); Lymphocytes Percent Auto 21.2 % (20-40); Mean Corpuscular HGB Conc 33.7 g/dl (31.0-36.0); Mean Corpuscular Hemoglobin 33.3 pg (27.0-33.0); Mean Platelet Volume 10.5 fL (9.4-12.4); Monocytes Absolute Auto 0.4 X10*3/uL (0.1-1.2); Monocytes Percent Auto 10.3 % (2-11); Neutrophils Absolute Auto 2.6 x10*3/uL (2.0-8.3); Neutrophils Percent Auto 62.5 % (45-73); Platelet Count 164 X10*3/uL (160-400); Red Blood Count 4.17 X10*6/uL (4.60-5.80); Retic HGB Equivalent 36.8 pg (30.0-35.0); Reticulocyte Percent 0.9 % (0.5-1.8); Reticulocytes Absolute 0.036 X10*6/uL (0.026-0.095); White Blood Count 4.2 X10*3/uL (4.8-10.8)
[2024-07-20 12:26] LABS: Estimated Average Glucose 114 mg/dL; Hemoglobin A1C 133.0087 umol/L; Hemoglobin A1c % 5.6 % (<6.0); Total Hemoglobin (HGBA1C) 3549.6313 umol/L
[2024-07-20 12:58] LABS: Alanine Aminotransferase 31 U/L (0-40); Albumin Level 3.9 g/dL (3.5-5.0); Alkaline Phosphatase 98 U/L (39-117); Anion Gap 8 (12-20); Aspartate Amino Transferase 32 U/L (5-37); Bilirubin Total 0.9 mg/dL (0.0-1.0); Blood Urea Nitrogen 29 mg/dL (9-16); Calcium 9.1 mg/dL (8.4-10.2); Carbon Dioxide 29 mmol/L (22-29); Chloride 108 mmol/L (96-108); Cholesterol 124 mg/dL (<200); Estimated Glomerular Filt Rate 58; Glucose Random 101 mg/dL (60-115); HDL Cholesterol 66 mg/dL (>40); Iron 125 mcg/dL (45-160); LDL Cholesterol Calculated 51 mg/dL (<100); Percent Iron Saturation 51 % (15-50); Potassium 4.1 mmol/L (3.3-5.1); Sodium 141 mmol/L (135-145); Total Iron Binding Capacity 247 mcg/dL (228-428); Total Protein 6.8 g/dL (6.5-8.0); Triglycerides 39 mg/dL (<150); Unsaturated Iron Binding 122 ug/dL
[2024-07-20 13:15] LABS: Ferritin 205 ng/mL (20-250); Free T4 (Free Thyroxine) 1.16 ng/dL (0.71-1.85); Thyroid Stimulating Hormone 2.52 uIU/mL (0.32-4.0)
[2024-07-20 13:33] LABS: Folate 14.6 ng/mL (> or = 4.0); Vitamin B12 483 pg/mL (200-900)
== END 2024-07-20 11:14 | disposition home or self-care (01) ==
LOC: HO.LAB 11:13
PROVIDERS: PCP Internal Medicine; Visit Provider Internal Medicine
DX: R73.02 Impaired glucose tolerance (oral) (principal); E78.00 Pure hypercholesterolemia, unspecified
CPT/HCPCS: 36415; 80053; 80061; 82607; 82728; 82746; 83036; 83540; 84439; 84443; 85025; 85045

== ENCOUNTER 2024-09-28 09:28 | Outpatient (AMB) | payer MEDICARE, SELFPAY ==
--- NOTE | 2024-09-28 09:32 | A.OFFPC_ITS ---
Vital Signs 09/28/24 09:33 Height 5 ft 8 in Weight 143 lb 8 oz BMI 21.8 BP 122/60 Blood Pressure Location Lt brachial Position Sitting Pulse 72 Pulse Source Pulse Oximeter Pulse Oximetry (%) 92 Oxygen Delivery Method Room Air Intake Visit Reasons: Follow Up Intake Note: Patient is here to follow up on Hypercholesterolemia, HTN, Hypothyroid, BPH. Product Sales Representative Required: No Marketing Program Manager: Not Required per policy Accompanied by: Self / Same As Patient Allergies No Known Allergies Allergy (Verified 09/28/24 09:33) Tobacco use date assessed: 09/28/24 Fall risk assessment: No Falls in past year Last assessed Fall Risk: 09/28/24 Dental Screening Dental Screen Date: 06/15/24 HPI Follow Up HPI Details The patient is an 89-year-old male presenting with follow-up for chronic health conditions. He has a history of undergoing laser laryngotomy with reconstruction, followed by regular check-ups. 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 Blood work revealed slightly low white blood cell count (leukopenia) and an anemia with hemoglobin levels almost normalizing at 13.9 g/dL. He is noted to have moderate aortic stenosis, with aortic valve area reducing from 1.87 cm? in 2021 to 1.1 cm? in June 2023. He does not currently exhibit severe symptoms but is advised to continue monitoring. His cholesterol is well-controlled despite a stroke history. Liver function remains normal, and blood glucose levels recorded were slightly elevated at 101 mg/dL, with Hemoglobin A1c maintaining normalcy at 5.6%. The patient reports issues of fatigue and being cold, potentially linked to poor circulation and low subcutaneous fat. The patient is compliant with medication management and has stable health parameters overall. 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 Mother No problems noted. Social History Housing: House Alcohol intake: current Alcohol intake frequency: does not drink Patient Tobacco Use Status: Never used Tobacco e-Cigarette/Vaping Use: Never Used Second Hand Smoke Exposure: No service: No Current occupational status: retired Cognitive needs: No Hearing needs: No Vision needs: Yes Questionnaire Thrive Questionnaire Date Thrive assessed: 06/15/24 RIMMA-7 AMB Questionnaire RIMMA-7 Date RIMMA - 7 assessed: 06/15/24 Source: Developed by Drs. Lars Acosta, Ana Fried, Eren Kaba and colleagues, with an educational rodolfo from [employer]. Physical exam (Primary Care) Vital Signs: Last Vital Signs Pulse 72 09/28/24 09:33 BP 122/60 09/28/24 09:33 Pulse Ox 92 09/28/24 09:33 Oxygen Delivery Method Room Air 09/28/24 09:33 Care Plan Goal for BP management: impacted cerumen bilateral BMI result Body Mass Index 21.8 Tobacco/Smoking Status: Tobacco use Status Tobacco use date assessed 09/28/24 09/28/24 09:38 Patient Tobacco Use Status Never used Tobacco 09/28/24 09:38 e-Cigarette/Vaping Use Never Used 09/28/24 09:38 Thrive Assessment: Date of Thrive Assessment Date Thrive assessed 06/15/24 09/28/24 09:38 Const General: alert; No acute distress Eyes Conjunctivae: conjunctivae normal Resp Auscultation: clear to auscultation bilaterally Cardio Rate: regular rate Rhythm: regular rhythm GI Inspection: Yes normal to inspection Extrem General: Yes normal to inspection and No edema Office Procedures Cerumen Removal From which ear canal was the cerumen removed: bilateral Removal: otoscope w/curette and cerumen loop/spoon Notes: patient tolerated procedure well, no complications and ear canal clear [id number] Wax Removal by Spoon/Curette Immunizations tetanus-diphtheria toxoids-Td 2 Lf unit-2 Lf unit/0.5 mL IM suspension Performing Provider: Steve Sanchez MD [facility] Administered by: CHELSIE Pacheco on 09/28/24 10:11 Dose Route Admin Location Dispensed Lot Number Expiration Date NDC [employer] Professor 0.5 mL IM Left Deltoid 0.5 mL [id number] 11/19/24 [address]-1 [employer] VIS Given Date VIS Provided VIS Publication Date 09/28/24 Single Vaccine 21 Eligibility Eligibility Date Funding Source Not VFC Eligible 09/28/24 [facility] funds Coding Level of Care Code Est Pt Level 4 (21831) Complex EM visit Add On G2211 Diagnoses History of laryngeal cancer Z85.21 Impaired glucose tolerance R73.02 Essential hypertension I10 Hypertension type: essential hypertension Acquired hypothyroidism E03.9 Hypothyroidism type: acquired Benign prostatic hyperplasia with urinary frequency N40.1; R35.0 Lower urinary tract symptom detail: urinary frequency Lower urinary tract symptom presence: symptoms present Cerebellar infarction I63.9 Aortic stenosis I35.0 Impacted cerumen of both ears H61.23 CPT Codes Office Procedure - CPT: 20262-Inh Wax Removal by Spoon/Curette ([id number]) Assessment & Plan Assessment & Plan (1) History of laryngeal cancer: Comment: Laser laryngectomy, Reconstruction June [address] Dr. Michelle MARTINEZ, [facility] with FF up Code(s): Z85.21 - Personal history of malignant neoplasm of larynx Category: Medical Plan: Patient is presently stable. not really seeing Dr. Martinez (2) Impaired glucose tolerance: Code(s): R73.02 - Impaired glucose tolerance (oral) Category: Medical Plan: Decrease the amount of carbohydrate intake, pasta, bread, rice and potatoes are all sugar and that is aside from all the sweet stuff, remember that fruits are good but they are Sweet also. (3) Hypertension: Code(s): I10 - Essential (primary) hypertension Category: Medical Qualifiers: Hypertension type: essential hypertension Qualified Code(s): I10 - Essential (primary) hypertension Plan: Continue with blood pressure medication. Decrease salt intake and exercise on hydrochlorothiazide patient is advised to keep well hydrated (4) Hypothyroid: Code(s): E03.9 - Hypothyroidism, unspecified Category: Medical Qualifiers: Hypothyroidism type: acquired Qualified Code(s): E03.9 - Hypothyroidism, unspecified Plan: For the thyroid medication on levothyroxine 75 mcg once a day continue. Continue with tamsulosin (5) BPH (benign prostatic hyperplasia): Code(s): N40.0 - Benign prostatic hyperplasia without lower urinary tract symptoms Category: Medical Qualifiers: Lower urinary tract symptom detail: urinary frequency Lower urinary tract symptom presence: symptoms present Qualified Code(s): N40.1 - Benign prostatic hyperplasia with lower urinary tract symptoms; R35.0 - Frequency of micturition Plan: Continue with tamsulosin (6) Cerebellar infarction: Comment: Right cerebellar infarction March 2022 Code(s): I63.9 - Cerebral infarction, unspecified Category: Medical Plan: Control the cholesterol, weight, blood pressure continue with aspirin (7) Aortic stenosis: Comment: March 2022 1.87 sq cm mild 04/2023 1.5 cm 06/29/2024 1.19 cm Code(s): I35.0 - Nonrheumatic aortic (valve) stenosis Category: Medical Plan: Echocardiogram done in 06/29/2024 1.19 cm (8) Impacted cerumen of both ears: Code(s): H61.23 - Impacted cerumen, bilateral Category: Medical Plan: scoop done no irrigation TM intact Plan - Continue current medications for blood pressure management and cholesterol control. - Encourage adequate hydration to address elevated BUN levels and potential dehydration. - Monitor hemoglobin and white blood cell count with periodic blood tests to assess anemia and leukopenia. - Discuss and consider RSV vaccine as an option; recommend tetanus booster. - Monitor aortic stenosis with annual echocardiograms due to gradual progression. - Advise on potential need for increased water intake, especially given the use of diuretics. - - Implement lifestyle modifications for pre-diabetes, including monitoring blood glucose levels and dietary adjustments. - Continue regular follow-up appointments for comprehensive management of all chronic conditions. Orders: Orders Td State Immunization Today Z23 - Encounter for immunization
[2024-09-28 09:33] VITALS: BP 122/60; PULSE 72; O2SAT 92; BMI 21.8
== END 2024-09-28 10:15 | disposition home or self-care (01) ==
PROVIDERS: PCP Internal Medicine; Visit Provider Internal Medicine
DX: I10 Essential (primary) hypertension (principal); R73.02 Impaired glucose tolerance (oral); Z85.21 Personal history of malignant neoplasm of larynx; Z86.73 Personal history of transient ischemic attack (TIA), and cerebral infarction without residual deficits; Z23 Encounter for immunization; E03.9 Hypothyroidism, unspecified; H61.23 Impacted cerumen, bilateral; N40.1 Benign prostatic hyperplasia with lower urinary tract symptoms; R35.0 Frequency of micturition; I35.0 Nonrheumatic aortic (valve) stenosis

== ENCOUNTER → 2024-09-28 09:28 | Outpatient (BNVA) | payer MEDICARE, SELFPAY | PROVIDERS: PCP Internal Medicine; Visit Provider Internal Medicine | DX: H61.23 Impacted cerumen, bilateral (principal); E78.00 Pure hypercholesterolemia, unspecified; I10 Essential (primary) hypertension; E03.9 Hypothyroidism, unspecified; R73.02 Impaired glucose tolerance (oral); N40.1 Benign prostatic hyperplasia with lower urinary tract symptoms; R35.0 Frequency of micturition; I35.0 Nonrheumatic aortic (valve) stenosis; Z23 Encounter for immunization; Z85.21 Personal history of malignant neoplasm of larynx; Z86.73 Personal history of transient ischemic attack (TIA), and cerebral infarction without residual deficits | CPT/HCPCS: 69210; 90471; 90714; 99212 ==

== ENCOUNTER 2024-12-17 10:03 | Outpatient (AMB) | payer MEDICARE, SELFPAY ==
--- NOTE | 2024-12-17 10:16 | MHC.PC.OV ---
Vital Signs 12/17/24 10:17 Height 5 ft 8 in Weight 135 lb BMI 20.5 BP 120/62 Blood Pressure Location Lt brachial Position Sitting Pulse 67 Pulse Source Pulse Oximeter Temp 97.7 F Temp Source Temporal Artery Scan Pulse Oximetry (%) 88 L Oxygen Delivery Method Room Air Intake Visit Reasons: requesting an MRI Equity Trader Required: No Inspector And Sorter: Present Accompanied by: Spouse Allergies No Known Allergies Allergy (Verified 12/17/24 10:17) Medication List - Last Reconciled 12/17/24 by Steve Sanchez MD aspirin 81 mg PO DAILY atorvastatin 40 mg PO BEDTIME calcium carbonate-vitamin D3 600 mg-12.5 mcg (500 unit) (Calcium with Vit D3) 2 caps PO DAILY hydrochlorothiazide 12.5 mg PO QAM levothyroxine 75 mcg PO BEDTIME multivitamin 1 tab PO DAILY tamsulosin 0.4 mg PO DAILY Tobacco use date assessed: 12/17/24 Fall risk assessment: No Falls in past year Last assessed Fall Risk: 12/17/24 Dental Screening Dental Screen Date: 12/17/24 Did you have a dental visit in the last 12 months?: Yes Did you have a dental problem in the last 6 months where you did not have access to dental care?: No Was dental information given to patient?: Patient has dentist HPI requesting an MRI HPI Details 89-year-old male noted 8 lb weight loss with a history of laryngeal cancer 2012 hypertension hypothyroid BPH history of CVA with cerebellar infarction aortic stenosis hypercholesterolemia last seen in September. Noted weight loss and the patient has not been able to eat as it leaks out of his tracheostomy tube. Of concern patient who came in with hypoxemia to 8 8. Retesting of oxygenation levels off at 95 but did come down to 90. Patient denies any shortness of breath denies any chest pains. Meanwhile has been concerned because the patient has bursts of anger or rubi for the last few months no weakness to any part of the body. 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 Mother No problems noted. Social History Housing: House Alcohol intake: current Alcohol intake frequency: does not drink Patient Tobacco Use Status: Never used Tobacco e-Cigarette/Vaping Use: Never Used Second Hand Smoke Exposure: No service: No Current occupational status: retired Cognitive needs: No Hearing needs: No Vision needs: Yes Questionnaire PHQ-9 Over the last 2 weeks, how often have you been bothered by any of the following problems? 1. Little interest or pleasure in doing things: not at all 2. Feeling down, depressed, or hopeless: not at all 3. Trouble falling or staying asleep, or sleeping too much: not at all 4. Feeling tired or having little energy: not at all 5. Poor appetite or overeating: not at all 6. Feeling bad about yourself - or that you are a failure or have let yourself or your family down: not at all 7. Trouble concentrating on things, such as reading the newspaper or watching television: not at all 8. Moving or speaking so slowly that other people could have noticed. Or the opposite - being so fidgety or restless that you have been moving around a lot more than usual: not at all 9. Thoughts that you would be better off or of hurting yourself in some way: not at all Total score: 0 Depression Screening Interpretation: Negative Depression Screening Done: Yes Source: Developed by Drs. Lars Acosta, Ana Fried, Eren Kaba and colleagues, with an educational rodolfo from [employer]. Thrive Questionnaire Date Thrive assessed: 12/17/24 I am a: Patient What is your living situation today?: I have a steady place to live Within the past 12 months, did the food you bought not last and you didn't have the money to get more?: Never true Within the past 12 months, did you worry whether your food would run out before you got money to buy more?: Never true Do you have trouble paying for medicines?: No Do you have trouble getting transportation to medical appointments?: No Do you have trouble paying your heating and electricity bill?: No Do you have trouble taking care of your child, family member or friend?: No Do you have trouble with day-to-day activities such as bathing, preparing meals, shopping, managing finances, etc.?: No Are you currently unemployed and looking for a job?: No Are you interested in more education?: No Please select the resources that you would like help with: None Currently or been in a relationship where the following occur: No concerns reported THRIVE Score: 0 AUDIT C Alcohol Use Questionnaire (AUDIT-C) 1. How often do you have a drink containing alcohol?: Never Total Score: 0 RIMMA-7 AMB Questionnaire RIMMA-7 Date RIMMA - 7 assessed: 12/17/24 Feeling nervous, anxious, or on edge: 0 = Not at all Not being able to stop or control worryin = Not at all Worrying too much about different things: 0 = Not at all Trouble relaxin = Not at all Being so restless that it is hard to sit still: 0 = Not at all Becoming easily annoyed or irritable: 0 = Not at all Feeling afraid as if something awful might happen: 0 = Not at all Total RIMMA-7 score (0-4 normal; 5-9 mild; 10-14 moderate; 15-21 severe): 0 Source: Developed by Drs. Lars Acosta, Ana Fried, Eren Kaba and colleagues, with an educational rodolfo from [employer]. Physical exam (Primary Care) Vital Signs: Last Vital Signs Temp 97.7 F 12/17/24 10:17 Pulse 67 12/17/24 10:17 BP 120/62 12/17/24 10:17 Pulse Ox 88 L 12/17/24 10:17 Oxygen Delivery Method Room Air 12/17/24 10:17 BMI result Body Mass Index 20.5 Tobacco/Smoking Status: Tobacco use Status Tobacco use date assessed 12/17/24 12/17/24 10:23 Patient Tobacco Use Status Never used Tobacco 12/17/24 10:23 e-Cigarette/Vaping Use Never Used 12/17/24 10:23 PHQ-9: PHQ-9 Score PHQ-9: Total score 0 12/17/24 10:23 Depression Screening Interpretation: Negative Thrive Assessment: Date of Thrive Assessment Date Thrive assessed 12/17/24 12/17/24 10:23 Currently or been in a relationship where the following occur: No concerns reported Const General: alert; No acute distress [facility] Head images: 1. 2 cm tracheostomy tube Eyes Conjunctivae: conjunctivae normal Resp Auscultation: clear to auscultation bilaterally Cardio Rate: regular rate Rhythm: regular rhythm GI Inspection: Yes normal to inspection Extrem General: Yes normal to inspection and No edema Coding Level of Care Code Est Pt Level 4 (97727) Complex EM visit Add On G2211 Diagnoses Essential hypertension I10 Hypertension type: essential hypertension Acquired hypothyroidism E03.9 Hypothyroidism type: acquired Benign prostatic hyperplasia with urinary frequency N40.1; R35.0 Lower urinary tract symptom presence: symptoms present Lower urinary tract symptom detail: urinary frequency Impaired glucose tolerance R73.02 Cerebellar infarction I63.9 Aortic stenosis I35.0 Hypercholesterolemia E78.00 Hypoxemia R09.02 Assessment & Plan Assessment & Plan (1) Hypertension: Code(s): I10 - Essential (primary) hypertension Category: Medical Qualifiers: Hypertension type: essential hypertension Qualified Code(s): I10 - Essential (primary) hypertension Plan: Pressure plan on hydrochlorothiazide 12.5 mg once a day. With low blood pressure advised to discontinue hydrochlorothiazide and monitor blood pressure. (2) Hypothyroid: Code(s): E03.9 - Hypothyroidism, unspecified Category: Medical Qualifiers: Hypothyroidism type: acquired Qualified Code(s): E03.9 - Hypothyroidism, unspecified Plan: Continue with thyroid medication October last blood work (3) BPH (benign prostatic hyperplasia): Code(s): N40.0 - Benign prostatic hyperplasia without lower urinary tract symptoms Category: Medical Qualifiers: Lower urinary tract symptom presence: symptoms present Lower urinary tract symptom detail: urinary frequency Qualified Code(s): N40.1 - Benign prostatic hyperplasia with lower urinary tract symptoms; R35.0 - Frequency of micturition Plan: Tamsulosin 0.4 mg once a day (4) Impaired glucose tolerance: Code(s): R73.02 - Impaired glucose tolerance (oral) Category: Medical Plan: Decrease the amount of carbohydrate intake, pasta, bread, rice and potatoes are all sugar and that is aside from all the sweet stuff, remember that fruits are good but they are Sweet also. (5) Cerebellar infarction: Comment: Right cerebellar infarction March 2022 Code(s): I63.9 - Cerebral infarction, unspecified Category: Medical Plan: Control the cholesterol, weight, blood pressure, on aspirin (6) Aortic stenosis: Comment: March 2022 1.87 sq cm mild 04/2023 1.5 cm 06/29/2024 1.19 cm Code(s): I35.0 - Nonrheumatic aortic (valve) stenosis Category: Medical Plan: Continue to monitor (7) Hypercholesterolemia: Code(s): E78.00 - Pure hypercholesterolemia, unspecified Category: Medical Plan: Avoid fried foods, chicken skin, eggs, butter margarine, pastries and meat. Be it pork or beef they have a lot of cholesterol on atorvastatin 40 mg once a day (8) Hypoxemia: Code(s): R09.02 - Hypoxemia Category: Medical Plan History of Present Illness Health Maintenance - Continued management of hypercholesterolemia with atorvastatin 40 mg daily - Aspirin therapy for stroke prevention - Discussion of potential referral for swallowing evaluation - Monitoring of kidney function and electrolytes Social History - Recent significant weight loss - Difficulty with eating and maintaining nutritional intake - Residence in a home undergoing sale, with anticipated move to [place] Review of Systems - Gastrointestinal: Reports dysphagia and significant weight loss - Neurological: Reports cognitive changes and increased irritability Physical Exam Results - Labs: Hemoglobin 13.9 g/dL (borderline anemia), white blood cell count low, platelets normal, kidney function stable - Blood Work: Dehydration noted Plan I discussed with the patient the necessity of a swallowing evaluation to address the issue of dysphagia. Due to his significant weight loss, I recommended discontinuing hydrochlorothiazide to prevent further lowering of blood pressure. A referral for a modified barium swallow is advised to assess for potential aspiration. Monitoring of anemia and cognitive changes was advised. Aspirin and atorvastatin regimens will continue for stroke prevention and cholesterol management. It is also recommended that the patient obtain a home blood pressure monitor for ongoing evaluation of blood pressure. A follow-up with Dr. Araya will help to explore further management options related to his ENT issues. Patient was informed and verbally consented to the use of an ambient scribe for clinic note documentation during this visit. Discussion Notes I thoroughly discussed with the patient and his daughter the need for a swallowing evaluation due to ongoing issues with food intake and potential risks of aspiration. The risks and benefits of discontinuing hydrochlorothiazide were reviewed, particularly in light of the patient's weight loss and potentially low blood pressure. We discussed the continuation of aspirin and atorvastatin for ongoing management of his chronic conditions. I recommended a modified barium swallow test to determine the extent of his dysphagia and any risk for pulmonary complications. I emphasized the importance of blood pressure monitoring at home and the potential need for enteral nutrition if swallowing difficulties persist. Follow-ups with previous specialists, including a neurologist for cognitive concerns, were encouraged. Patient Instructions - Stop taking hydrochlorothiazide. - Continue taking atorvastatin 40 mg and aspirin as prescribed. - Schedule a swallowing evaluation as soon as possible. - Obtain a home blood pressure monitor and check blood pressure regularly. - Follow up with Dr. Araya or another ENT specialist regarding swallowing issues. - Monitor for any further symptoms or changes in health, particularly irritability or confusion, and report these during follow-up visits. - Encourage continued fluid intake to prevent dehydration. Orders: Orders [place] Modified Barium Swallow Today Z85.21 - Personal history of malignant neoplasm of larynx XR chest 2V Today R09.02 - Hypoxemia Referrals Speech and Hearing Referral Z85.21 - Personal history of malignant neoplasm of larynx Medications: Discontinued hydrochlorothiazide Discontinued Reason: Doctor's Order 12.5 mg PO QAM 90 tabs 3RF
[2024-12-17 10:17] VITALS: BP 120/62; PULSE 67; TEMP 36.5; O2SAT 88; BMI 20.5
== END 2024-12-17 11:05 | disposition home or self-care (01) ==
PROVIDERS: PCP Internal Medicine; Visit Provider Internal Medicine
DX: I10 Essential (primary) hypertension (principal); E03.9 Hypothyroidism, unspecified; N40.1 Benign prostatic hyperplasia with lower urinary tract symptoms; R35.0 Frequency of micturition; R73.02 Impaired glucose tolerance (oral); Z86.73 Personal history of transient ischemic attack (TIA), and cerebral infarction without residual deficits; I35.0 Nonrheumatic aortic (valve) stenosis; E78.00 Pure hypercholesterolemia, unspecified; R09.02 Hypoxemia

== ENCOUNTER 2024-12-17 10:03 | Outpatient (REF) | payer MEDICARE, SELFPAY ==
--- NOTE | ~2024-12-17 | XR_ITS ---
EXAMINATION: XR CHEST CLINICAL INFORMATION: R09.02 - Hypoxemia COMPARISON: 03/29/2022. TECHNIQUE: 2 views of the chest were obtained. FINDINGS: The cardiac, hilar, and mediastinal contours are normal. Mild aortic calcification. The lungs are clear bilaterally. There is no pneumothorax or pleural effusion. There is no focal osseous or soft tissue abnormality. Mild spinal degenerative changes. XR/XR chest 2V IMPRESSION: No active pulmonary disease. Electronically signed by: Too Easton MD 12/18/2024 09:32 AM EDT
== END 2024-12-17 10:04 | disposition home or self-care (01) ==
LOC: HO.XRAY 10:03
PROVIDERS: PCP Internal Medicine; Visit Provider Internal Medicine
DX: R09.02 Hypoxemia (principal); I10 Essential (primary) hypertension; E03.9 Hypothyroidism, unspecified; N40.1 Benign prostatic hyperplasia with lower urinary tract symptoms; R35.0 Frequency of micturition; R73.02 Impaired glucose tolerance (oral); I63.9 Cerebral infarction, unspecified; I35.0 Nonrheumatic aortic (valve) stenosis; E78.00 Pure hypercholesterolemia, unspecified
CPT/HCPCS: 71046; 99212

== ENCOUNTER → 2024-12-17 11:32 | Outpatient (BNV) | payer MEDICARE, SELFPAY | PROVIDERS: PCP Internal Medicine; Visit Provider Radiology Diagnostic Radiology | DX: R09.02 Hypoxemia (principal) | CPT/HCPCS: 71046 ==

== ENCOUNTER 2024-12-22 15:07 | Emergency (ER) | payer MEDICARE, SELFPAY ==
--- NOTE | ~2024-12-22 | XR_ITS ---
CLINICAL HISTORY: weakness 2 view chest x-ray Comparison: CR/SR - XR CHEST 2V - 12/17/24 10:36 EDT CR/LA/SR - XR CHEST 1V - 03/29/22 18:33 EDT Findings: No consolidation or effusion. Normal size heart. No acute fracture. IMPRESSION: 1. No acute findings. This document has been electronically signed by: Srinivas Mayorga MD on 12/22/2024 16:17:32
--- NOTE | ~2024-12-22 | CT_ITS ---
CLINICAL HISTORY: fall CT cervical spine without contrast Comparison: None Findings: Normal vertebral body alignment. Multilevel disc space narrowing and endplate osteophyte formation, as well as facet hypertrophy. No acute fractures or dislocations. No acute findings on limited view of the intracranial contents. Soft tissues of the neck are normal. No consolidation or effusion at the lung apices. IMPRESSION: No acute findings. This document has been electronically signed by: Srinivas Mayorga MD on 12/22/2024 17:35:56
--- NOTE | ~2024-12-22 | CT_ITS ---
CLINICAL HISTORY: fall, ams CT head without contrast Comparison: CT/SR - CT ANGIO HEAD NECK - 04/07/22 18:51 EDT MR/SR - MR HEAD/BRAIN WO CON - 04/07/22 14:51 EDT Findings: There is a 25 mm rounded masslike density within the left mid naranjo radiata. Severe surrounding ill-defined low-density within the left frontal and anterior parietal lobes. There is a 7 mm masslike density within the left frontal periventricular white matter. There is diffuse left-sided sulcal effacement. There is rightward midline shift measured at 5 mm. Mild diffuse cerebral volume loss. Mild degree of patchy low-density within the periventricular and subcortical white matter. The visualized paranasal sinuses and mastoid air cells are normal. The orbits are within normal limits. There is no acute fracture. IMPRESSION: 1. Malignant left-sided naranjo radiata masses associated with severe surrounding vasogenic edema, as well as rightward midline shift. This document has been electronically signed by: Srinivas Mayorga MD on 12/22/2024 17:36:05
--- NOTE | 2024-12-22 15:10 | ED.GENADULT ---
HPI - General Adult General Stated complaint: disorentation Related Data Home Medications ?Medication ?Instructions ?Recorded ?Confirmed calcium 600 mg (as 2 cap PO DAILY 08/05/20 12/17/24 carbonate)-vitamin D3 12.5 mcg (500 unit) capsule (Calcium with Vit D3) multivitamin 1 tab PO DAILY 08/05/20 12/17/24 Previous Rx's ?Medication ?Instructions ?Recorded aspirin 81 mg tablet,delayed 81 mg PO DAILY #60 tabs 04/09/22 release atorvastatin 40 mg tablet 40 mg PO BEDTIME #90 tabs 01/11/24 levothyroxine 75 mcg tablet 75 mcg PO BEDTIME #90 tabs 06/28/24 tamsulosin 0.4 mg capsule 0.4 mg PO DAILY #90 caps 06/28/24 Allergies Allergy/AdvReac Type Severity Reaction Status Date / Time No Known Allergies Allergy Verified 12/17/24 10:17 [facility] Past Medical History Medical History Tubular adenoma of colon 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 Mother No problems noted. Social History Social History Housing: House Alcohol intake: current Alcohol intake frequency: does not drink Patient Tobacco Use Status: Never used Tobacco e-Cigarette/Vaping Use: Never Used Second Hand Smoke Exposure: No service: No Current occupational status: retired Cognitive needs: No Hearing needs: No Vision needs: Yes Course Course Course Narrative: RME performed by Mary Babcock PA-C. Patient is an 89 year old assigned male at presenting to the emergency department with increased weakness and gradual deconditioning. Detailed physical exam and review of systems are deferred to the manufacturing applications engineer. EKG, labs, imaging, and swabs ordered. Patient placed back in the waiting room pending room availability and results. Discharge Plan Discharge Prescriptions: No Action atorvastatin 40 mg tablet 40 mg PO BEDTIME Qty: 90 3RF tamsulosin 0.4 mg capsule 0.4 mg PO DAILY Qty: 90 3RF levothyroxine 75 mcg tablet 75 mcg PO BEDTIME Qty: 90 2RF aspirin 81 mg Tablet,Delayed Release (Dr/Ec) 81 mg PO DAILY Qty: 60 0RF Rx Instructions: offer over the counter first multivitamin Tablet 1 tab PO DAILY calcium carbonate-vitamin D3 [Calcium 600 with Vitamin D3] 600 mg(1,500mg) -500 unit capsule 2 cap PO DAILY Print Language: [place]an
[2024-12-22 15:12] VITALS: BP 127/44; PULSE 50; RESP 18; TEMP 36.4; O2SAT 98; BMI 21.1
--- NOTE | 2024-12-22 15:13 | ECG_ITS ---
Test Reason : weakness Blood Pressure : */* mmHG Vent. Rate : 45 BPM Atrial Rate : 45 BPM P-R Int : 166 ms QRS Dur : 82 ms QT Int : 450 ms P-R-T Axes : 29 33 53 degrees QTcB Int : 389 ms Sinus bradycardia Otherwise normal ECG When compared with ECG of 07-Apr-2022 19:08, No significant change was found Referred By: Mary Babcock Electronically Signed By: JORGE HENDRICKS
[2024-12-22 15:39] LABS: MANUAL DIFF FLAG NO
[2024-12-22 15:41] LABS: Basophils Percent Auto 0.5 % (0-2); Eosinophils Absolute Auto 0.1 X10*3/uL (0.0-0.4); Eosinophils Percent Auto 2.1 % (0-4); Hematocrit 40.4 % (42.0-52.0); Hemoglobin 13.3 g/dl (14.0-18.0); Imm Gran Abs Auto 0.02 X10*3/uL (0.00-0.03); Imm Gran Pct Auto 0.3 % (0.0-0.4); Lymphocytes Absolute Auto 0.9 X10*3/uL (1.2-4.9); Lymphocytes Percent Auto 14.9 % (20-40); Mean Corpuscular HGB Conc 32.9 g/dl (31.0-36.0); Mean Corpuscular Volume 100.2 fL (80.0-98.0); Mean Platelet Volume 10.5 fL (9.4-12.4); Monocytes Absolute Auto 0.4 X10*3/uL (0.1-1.2); Monocytes Percent Auto 7.5 % (2-11); Neutrophils Absolute Auto 4.3 x10*3/uL (2.0-8.3); Neutrophils Percent Auto 74.7 % (45-73); Platelet Count 165 X10*3/uL (160-400); Red Blood Count 4.03 X10*6/uL (4.60-5.80); Red Cell Distribution Width 13.8 % (11.0-16.0); White Blood Count 5.8 X10*3/uL (4.8-10.8)
[2024-12-22 16:11] LABS: Alanine Aminotransferase 22 U/L (0-40); Albumin Level 3.9 g/dL (3.5-5.0); Anion Gap 14 (12-20); Aspartate Amino Transferase 43 U/L (5-37); Bilirubin Total 1.3 mg/dL (0.0-1.0); Blood Urea Nitrogen 34 mg/dL (9-16); Calcium 9.5 mg/dL (8.4-10.2); Carbon Dioxide 26 mmol/L (22-29); Chloride 113 mmol/L (96-108); Creatinine Clr Calc Pharmacy 42.9; Estimated Glomerular Filt Rate > 60; Glucose Random 99 mg/dL (60-115); Magnesium 2.3 mg/dL (1.6-2.6); Potassium 3.7 mmol/L (3.3-5.1); Sodium 149 mmol/L (135-145); Total Protein 7.2 g/dL (6.5-8.0)
--- NOTE | 2024-12-22 16:16 | ED.GENADULT ---
HPI - General Adult General Chief complaint: General Medical Stated complaint: disorentation Time Seen by Provider: 12/22/24 16:00 Source: patient, RN notes reviewed and old records reviewed Mode of arrival: ambulatory History of Present Illness ED Provider: Mery Li PA-C HPI narrative: 89-year-old male with a past medical history laryngeal CA with tracheostomy, HTN, hypothyroid, BPH, CVA, aortic stenosis, HLD, presenting to ED with life for complaining of increased confusion, odd behavior, agitation, anxiousness x few days. We have also reports she found patient on the kitchen floor yesterday s/p suspected fall, patient was unable to tell her what had happened. reports swallowing difficulty /leakage from tracheostomy tube x 1 month, saw PCP on 12/17/24, & is scheduled for swallow eval and barium swallow to eval dysphagia. unable to give clear exam. Patient is on behavior, however states has not been acting himself. Unknown head trauma or LOC. Patient denies complaints at present including headache, neck/ back pain, CP/ SOB, abdominal pain, nausea /vomiting /diarrhea, recent illness Related Data Home Medications ?Medication ?Instructions ?Recorded ?Confirmed calcium 600 mg (as 2 cap PO DAILY 08/05/20 12/17/24 carbonate)-vitamin D3 12.5 mcg (500 unit) capsule (Calcium with Vit D3) multivitamin 1 tab PO DAILY 08/05/20 12/17/24 Previous Rx's ?Medication ?Instructions ?Recorded aspirin 81 mg tablet,delayed 81 mg PO DAILY #60 tabs 04/09/22 release atorvastatin 40 mg tablet 40 mg PO BEDTIME #90 tabs 01/11/24 levothyroxine 75 mcg tablet 75 mcg PO BEDTIME #90 tabs 06/28/24 tamsulosin 0.4 mg capsule 0.4 mg PO DAILY #90 caps 06/28/24 Allergies Allergy/AdvReac Type Severity Reaction Status Date / Time No Known Allergies Allergy Verified 12/22/24 15:15 Review of Systems Review of Systems: Yes all other systems are reviewed and are negative Constitutional: Constitutional: Reports as per HPI Neurologic: Denies Abnormal speech present PMFSH Past Medical History Attestation statement: The following information was validated with the patient. Source: old records reviewed Medical History Tubular adenoma of colon 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 Mother No problems noted. Social History Social History Housing: House Alcohol intake: current Alcohol intake frequency: does not drink Patient Tobacco Use Status: Never used Tobacco e-Cigarette/Vaping Use: Never Used Second Hand Smoke Exposure: No Advance Directives: No Advance Directives Information Provided: No service: No Current occupational status: retired Cognitive needs: No Hearing needs: No Vision needs: Yes Physical Exam ED Vital Signs: Vital Signs - 24 hr 12/22/24 15:12 12/22/24 18:29 12/22/24 19:20 Temperature 97.6 F 97.8 F Pulse Rate 50 62 69 Respiratory Rate 18 16 22 H Blood Pressure 127/44 L 140/61 H 134/47 L Pulse Oximetry 98 99 98 Oxygen Delivery Method Room Air Room Air 12/22/24 20:30 Temperature 98 F Pulse Rate 68 Respiratory Rate 16 Blood Pressure 109/42 L Pulse Oximetry 93 Oxygen Delivery Method Room Air BMI result Body Mass Index 21.1 Const General: cooperative and no acute distress Orientation/consciousness: patient oriented x3 Limitations: no limitations HENMT Head: Yes normal to inspection and Yes atraumatic Ears: hearing grossly normal bilaterally General nose exam: Normal external nose present Face and sinus: Yes normal facial exam Mouth: no drooling Throat: Yes posterior oropharynx normal and Yes uvula midline Eyes General: appearance normal, both eyes and all related structures Pupils: Equal, round and reactive pupils present EOM: EOMs intact bilaterally Neck Other: tracheostomy noted. Dressing clean Neck: Yes normal visual inspection and Yes no meningeal signs Resp Effort & Inspection: normal respiratory effort and no respiratory distress Auscultation: clear to auscultation bilaterally, no crackles and no wheezes Cardio Rate: regular rate Heart sounds: S1 normal heart sound present and S2 normal heart sound present GI Inspection: Yes normal to inspection Palpation (GI): Soft to palpation, nontender, no guarding and not rigid General: Yes no CVA tenderness Back/Spine/Pelvis Other: No midline cervical/thoracic/lumbar spinous tenderness/step-off or deformity Back: no CVA tenderness Skin Rashes: no rashes Wounds: no wounds Neuro General: patient oriented x3, tone normal, moves all extremities, no meningeal signs, no focal motor deficits and CN's II-XI intact bilaterally Cranial nerves: Yes CN's II-XII intact bilaterally, Yes Equal, round and reactive pupils present and Yes Bilaterally intact EOM present Cognition (Neuro): normal cognition Speech: No Abnormal speech present Motor exam (neuro): 5/5 motor strength present throughout and no tremor noted Extrem General: Yes normal to inspection Course Course Course Narrative: -162-- no leukocytosis. H/H stable. BUN acute on chronically elevated - T bili and AST mildly elevated. viral testing negative - CXR unremarkable 1747--CT head/brain wo IV con IMPRESSION: 1. Malignant left-sided naranjo radiata masses associated with severe surrounding vasogenic edema, as well as rightward midline shift. >10mg IV Decadron ordered & [facility] Neurosurgery paged CT cervical spine wo IV con IMPRESSION: No acute findings. -1814--spoke with neurosurgery Dr. Serjio Parnell at [facility] who recommended 10 mg of IV Decadron and transferred to their facility. Recommended hospitalist admission and they will consult. Spoke with Hospitalist Maryam Nj who accepted transfer. They will call back with bed. Accepting physician Dr. Hanson > discussed at length with patient and CT findings and suspected prognosis. -1919--patient with witnessed tonic-clonic seizure in the ED. 2 mg of IV Ativan given. Spoke with patient's son Nathan JACOBS, good contact # [phone] Medications Administered Discontinued Medications Generic Name Dose Route Start Last Admin Trade Name Freq PRN Reason Stop Dose Admin Dexamethasone Sodium Phosphate 10 mg 12/22/24 17:42 12/22/24 18:27 Dexamethasone Sod Phosphate 10 Mg/Ml Vial IVPUSH 12/22/24 17:43 10 mg ONCE ONE Administration Sodium Chloride 1,000 mls @ 999 mls/hr 12/22/24 17:30 12/22/24 18:27 Ns IV 12/22/24 18:30 Infused .Q1H1M JOHNNY Infusion Lorazepam 2 mg 12/22/24 19:16 12/22/24 19:18 Lorazepam 2 Mg/Ml Vial IVPUSH 12/22/24 19:17 2 mg ONCE ONE Administration Medical Decision Making Medical Decision Making [facility] Narrative: 89-year-old male with a past medical history laryngeal CA with tracheostomy, HTN, hypothyroid, BPH, CVA, aortic stenosis, HLD, presenting to ED with life for complaining of increased confusion, odd behavior, agitation, anxiousness x few days. We have also reports she found patient on the kitchen floor yesterday s/p suspected fall, patient was unable to tell her what had happened. reports swallowing difficulty /leakage from tracheostomy tube x 1 month. On exam vital signs stable, NAD, nontoxic appearing, A&O x3, acting appropriate, calm and cooperative at present, no evidence of trauma, exam otherwise nonfocal. Concern for metabolic/infectious etiologies vs encephalopathy vs ICH. Lower suspicion for meningitis / encephalitis. Rule out rhabdomyolysis. unlikely ACS Plan: EKG, labs, UA, CXR, head/ C-spine CT, re-evaluate Please refer to course for remaining clinical decision making, interpretation of labs/imaging results, and discussions with consultants and/or family members. Differential Diagnosis Differential Diagnoses: The differential diagnosis associated with the presentation includes As above Admission/Observation Consideration of admission/observation: Escalation of care including admission/observation considered Lab Data [facility] Lab Attestation statement: I reviewed the patient's lab results. 12/22/24 15:34 12/22/24 15:34 Labs: Lab Results 12/22/24 12/22/24 Range/Units 15:34 16:47 WBC 5.8 (4.8-10.8) X10*3/uL RBC 4.03 L (4.60-5.80) X10*6/uL Hgb 13.3 L (14.0-18.0) g/dl Hct 40.4 L (42.0-52.0) % MCV 100.2 H (80.0-98.0) fL MCH 33.0 (27.0-33.0) pg MCHC 32.9 (31.0-36.0) g/dl RDW 13.8 (11.0-16.0) % Plt Count 165 (160-400) X10*3/uL MPV 10.5 (9.4-12.4) fL Immature Gran % (Auto) 0.3 (0.0-0.4) % Neut % (Auto) 74.7 H (45-73) % Lymph % (Auto) 14.9 L (20-40) % [place] % (Auto) 7.5 (2-11) % Eos % (Auto) 2.1 (0-4) % Baso % (Auto) 0.5 (0-2) % Lymph # (Auto) 0.9 L (1.2-4.9) X10*3/uL [place] # (Auto) 0.4 (0.1-1.2) X10*3/uL Eos # (Auto) 0.1 (0.0-0.4) X10*3/uL Baso # (Auto) 0.0 (0.0-0.2) X10*3/uL Abs Immat Gran (auto) 0.02 (0.00-0.03) X10*3/uL Absolute Neuts (auto) 4.3 (2.0-8.3) x10*3/uL Absolute Nucleated RBC 0.000 (0.0-0.012) X10*3/uL Nucleated RBC % (auto) 0.0 (0.0-0.2) /100WBC Sodium 149 H (135-145) mmol/L Potassium 3.7 (3.3-5.1) mmol/L Chloride 113 H (96-108) mmol/L Carbon Dioxide 26 (22-29) mmol/L Anion Gap 14 (12-20) BUN 34 H (9-16) mg/dL Creatinine 1.00 (0.5-1.4) mg/dL Estim Creat Clear Calc 42.9 Estimated GFR > 60 Random Glucose 99 (60-115) mg/dL Calcium 9.5 (8.4-10.2) mg/dL Magnesium 2.3 (1.6-2.6) mg/dL Total Bilirubin 1.3 H (0.0-1.0) mg/dL AST 43 H (5-37) U/L ALT 22 (0-40) U/L Alkaline Phosphatase 82 (39-117) U/L Ammonia 27 (13-55) umol/L Total Creatine Kinase 636 H (38-174) U/L Troponin I High Sens 9.7 (<3.5-35.0) ng/L Total Protein 7.2 (6.5-8.0) g/dL Albumin 3.9 (3.5-5.0) g/dL Influenza Type A (PCR) NEGATIVE (Negative) Influenza Type B (PCR) NEGATIVE (Negative) RSV RNA Qual (PCR) NEGATIVE (Negative) SARS-CoV-2 RNA (RT-PCR) NEGATIVE (Negative) Independent Interpretation I performed an independent interpretation of an: EKG ( my interpretation EKG sinus bradycardia rate of 45. DE interval 166. No significant change when compared to prior. No STEMI), Plain X-Ray and CT Scan Radiology Impression Discussion of test interpretation with radiology: I have reviewed the radiologist's reading. Independent Historian Clinical information obtained from an independent historian. History obtained from or confirmed by: Spouse External Record Review External record reviewed: Inpatient record, Office record, Outpatient record, Prior outpatient labs, Prior outpatient radiology, Primary care record and Outside ED record Tests considered The following testing was considered but not selected: As above Prescription Management I considered prescription management with: Pain Medication and Antibiotic Chronic Conditions Patient?s care impacted by: Hypertension and Other Social Determinants Patient?s care significantly limited by Social Determinants of Health including: Other Social Determinant of Health Attestation Attending Attestation: I was personally present and available for consultation in the ED. I have reviewed everything on the chart that is available and agree with the documentation provided by the SURESH including discussion about the assessment, treatment plan and discussion. Based on medical record the care appears appropriate. Rush Monroy MD [facility] Emergency Medicine Critical Care Time Critical Care Time Critical Care Time: Yes Total Critical Care Time: 40 Attestation: I have personally provided critical care time exclusive of time spent on separately billable procedures. Time includes review of lab data, radiology results, discussion with consultants, and monitoring for potential decompensation. Intervention performed as documented. Discharge Plan Discharge Clinical Impression: Brain mass, Midline shift of brain, AMS (altered mental status) Patient Disposition: [facility] Transfer Details: [facility] accepting physician Dr. Hanson Prescriptions: No Action atorvastatin 40 mg tablet 40 mg PO BEDTIME Qty: 90 3RF tamsulosin 0.4 mg capsule 0.4 mg PO DAILY Qty: 90 3RF levothyroxine 75 mcg tablet 75 mcg PO BEDTIME Qty: 90 2RF aspirin 81 mg Tablet,Delayed Release (Dr/Ec) 81 mg PO DAILY Qty: 60 0RF Rx Instructions: offer over the counter first multivitamin Tablet 1 tab PO DAILY calcium carbonate-vitamin D3 [Calcium 600 with Vitamin D3] 600 mg(1,500mg) -500 unit capsule 2 cap PO DAILY Interventions: Acute Care Transfer Worksheet (ED) Last Done: 12/22/24 20:30 Discharge Date/Time: 12/22/24 20:30 Print Language: [place]
[2024-12-22 16:17] LABS: Influenza A PCR NEGATIVE (Negative); Influenza B PCR NEGATIVE (Negative); Resp Syncy Virus RNA Qual PCR NEGATIVE (Negative); SARS COV2 PCR INHOUSE NEGATIVE (Negative)
[2024-12-22 16:45] LABS: Alkaline Phosphatase 82 U/L (39-117)
[2024-12-22 16:58] LABS: Troponin-I High Sensitivity 9.7 ng/L (<3.5-35.0)
[2024-12-22 17:11] LABS: Ammonia 27 umol/L (13-55)
[2024-12-22] MEDS: 0.9 % Sodium Chloride 1,000 ML 999 ML IV (17:36)
[2024-12-22] MEDS: dexAMETHasone sod phosphate 10 MG/ML VIAL IVPUSH (18:27)
[2024-12-22 18:29] VITALS: BP 140/61; PULSE 62; RESP 16; TEMP 36.6; O2SAT 99
--- NOTE | 2024-12-22 18:33 | PC.NURSE ---
accepted to [facility] 5A room 49B nurse to nurse [phone]
--- NOTE | 2024-12-22 18:33 | PC.NURSE ---
patient resting quietly, at bedside. patient pupils equal and reactive bilaterally. patient answers questions appropriately. patient medicated per DEC.
--- NOTE | 2024-12-22 18:44 | PC.NURSE ---
report given to Shu WALLER at [address]
[2024-12-22] MEDS: LORazepam 2 MG/ML VIAL IVPUSH (19:18)
[2024-12-22 19:20] VITALS: BP 134/47; PULSE 69; RESP 22; O2SAT 98
--- NOTE | 2024-12-22 19:35 | PC.NURSE ---
pt had initially what appeared to be an absent seizure then tonic clonic seizure lasting approx 1min 30 seconds. Mery HANDLEY called to bedside and ativan given. seizure pads applied. pt placed on cardiac monitoring and o2 monitoring. vitals as documented. awaiting ems transfer. update given to [facility] SRIDHAR Calderon.
[2024-12-22 20:30] VITALS: BP 109/42; PULSE 68; RESP 16; TEMP 36.6; O2SAT 93
== END 2024-12-22 20:30 | disposition short-term general hospital (02) ==
PROVIDERS: Physician Assistant; Physician Assistant Medical; Emergency Provider Emergency Medicine; PCP Internal Medicine
DX: R41.82 Altered mental status, unspecified (principal); D49.6 Neoplasm of unspecified behavior of brain; G93.89 Other specified disorders of brain; G40.409 Other generalized epilepsy and epileptic syndromes, not intractable, without status epilepticus; Z03.818 Encounter for observation for suspected exposure to other biological agents ruled out; I10 Essential (primary) hypertension; E78.00 Pure hypercholesterolemia, unspecified; E03.9 Hypothyroidism, unspecified; Z85.21 Personal history of malignant neoplasm of larynx; Z86.73 Personal history of transient ischemic attack (TIA), and cerebral infarction without residual deficits; Z93.0 Tracheostomy status; Z79.82 Long term (current) use of aspirin; Z79.02 Long term (current) use of antithrombotics/antiplatelets; Z79.899 Other long term (current) drug therapy
CPT/HCPCS: 0241U; 70450; 71046; 72125; 80053; 82140; 82550; 83735; 84484; 85025; 93005; 96361; 96374; 96375; 99284; 99285; J1100; J2060

== ENCOUNTER → 2024-12-22 15:13 | Outpatient (BNV) | payer MEDICARE, SELFPAY | PROVIDERS: Emergency Provider Emergency Medicine; PCP Internal Medicine; Visit Provider Internal Medicine | DX: R00.1 Bradycardia, unspecified (principal); R53.1 Weakness | CPT/HCPCS: 93010 ==

== ENCOUNTER → 2024-12-22 15:13 | Outpatient (BNV) | payer MEDICARE, SELFPAY | PROVIDERS: Emergency Provider Emergency Medicine; PCP Internal Medicine; Visit Provider Radiology Diagnostic Radiology | DX: R41.0 Disorientation, unspecified (principal); C71.9 Malignant neoplasm of brain, unspecified; W19.XXXA Unspecified fall, initial encounter; R53.1 Weakness | CPT/HCPCS: 70450; 71046; 72125 ==

== ENCOUNTER → 2025-01-31 23:59 | Outpatient (BNV) | payer MEDICARE, SELFPAY | PROVIDERS: PCP Internal Medicine; Visit Provider Internal Medicine | DX: R13.10 Dysphagia, unspecified (principal); N17.9 Acute kidney failure, unspecified; I10 Essential (primary) hypertension | CPT/HCPCS: G0180 ==